=== PATIENT | male | born 1945 | race Caucasian/White ===

== ENCOUNTER 2017-03-01 11:54 | Inpatient (IN) ==
--- NOTE | 2017-03-01 21:17 | Internal Med History&Physical ---
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 Patient reports having moderate abdominal pain that radiated into his right shoulder for 2 weeks prior to presentation to the [facility]. He is at the [facility] for 1 week underwent workup for cholelithiasis as well as carotid stenosis. Patient has continued to have right upper quadrant abdominal pain and has positive Brantley sign on palpation. We will control any additional nausea or pain experienced We will start on gentle fluids We will consult general surgery We will obtain PT/INR/PTT Qualifiers: Cholelithiasis location: gallbladder Cholecystitis presence: without cholecystitis Biliary obstruction: without biliary obstruction Qualified Code(s): K80.20 - Calculus of gallbladder without cholecystitis without obstruction (2) Carotid stenosis Current visit: Yes Status: Acute Patient has history of carotid endarterectomy. Ultrasound and CT performed at the [facility] showed 20% stenosis of a tortuous left carotid and stenosis versus occlusion of the right carotid. No neurological deficits at this time. Slight bruit auscultated and left carotid. We will consult vascular surgery for recommendations Qualifiers: Laterality: unspecified laterality Qualified Code(s): I65.29 - Occlusion and stenosis of unspecified carotid artery (3) COPD (chronic obstructive pulmonary disease) Current visit: No Status: Chronic Patient was former smoker, diagnosis COPD. Currently stable. Continue home inhalers Qualifiers: COPD type: emphysema Emphysema type: unspecified Qualified Code(s): J43.9 - Emphysema, unspecified (4) HTN (hypertension) Current visit: No Status: Chronic Patient has history of hypertension on losartan and metoprolol at home. Current creatinine 1.33 last creatinine 1.29, previously normal creatinines but significant time ago. Unsure of current process represents SHAHZAD versus new baseline renal function We will hold losartan Continue metoprolol Qualifiers: Hypertension type: essential hypertension Qualified Code(s): I10 - Essential (primary) hypertension (5) Stable angina Current visit: No Status: Acute Patient does complain of having throbbing substernally. He has history of stable angina with use of nitroglycerin in the past. The reported chest pain is concerning given his possible need of cholecystectomy. Check troponin EKG negative Last echo performed in 04/02 showed EF of 60-65% We will place patient on telemetry (6) DVT prophylaxis Current visit: No Status: Acute We will hold chemical prophylaxis due to possible surgery. Start intermittent pneumatic compression devices (7) DM2 (diabetes mellitus, type 2) Current visit: No Status: Chronic We will hold oral hypoglycemics, start insulin sliding scale coverage Qualifiers: Diabetes mellitus complication status: with unspecified complications Diabetes mellitus custodial insulin use: without extermination supervisor use Qualified Code( s): E11.8 - Type 2 diabetes mellitus with unspecified complications (8) Paroxysmal a-fib Current visit: No Status: Chronic History of paroxysmal atrial fibrillation per patient chart. All previous document occasional hospital showed regular heart rate, current EKG does not show atrial fibrillation. Will hold prophylactic anticoagulation due to possible surgery. If there continues to be concern for atrial fibrillation consider long-term anticoagulation. Internal Medicine - H&P: HPI Chief complaint: RUQ abdominal pain Admitted From: Intrahospital Transfer Plans for Post Hospital Care: Home History of present illness: Mr. Haynes is a 71 year old male with past medical history of atrial fibrillation, CHF (last echo 04/02 showed EF 60-65% with mild left ventricular hypertrophy and mild left ventricle diastolic dysfunction), COPD, coronary artery disease, diabetes mellitus type 2, pacemaker, and hypertension who was transferred to [place] from the [facility] due to concern for cholelithiasis. Patient transferred to [place] after spending roughly 1 week at the [facility]. A CT abdomen/pelvis performed at the [facility] showed cholelithiasis, but also showed hypoattenuated region in one of his kidneys as well as 50% stenosis in his SMA. He also has a history of carotid endarterectomy and after a carotid ultrasound and CTA of his neck he was found to have 20% stenosis of his left carotid in unspecified stenosis of the right though there was mention of decreased blood flow.since arriving at [facility] patient has been stable, but continues to complain of right upper quadrant abdominal tenderness. He states that he has been having the tenderness in his abdomen for 2 weeks. He feels that movement will make it worse with only mild association with food. The pain is moderate and radiates to his right shoulder. He does state he has had decreased appetite since having this abdominal pain. He states that he has been having constipation and his 1 reported bowel movement in 2 weeks and that one bowel movement was watery diarrhea. He denies having any hematochezia or melena, but reports some nausea with no emesis. He denies fever/chills. When asked he states he has been having some substernal throbbing, but does have history of stable angina. Past Med Surg Social Fam HX - Past Medical History Medical history: atrial fibrillation, CHF, COPD, coronary artery disease, diabetes, GERD, hyperlipidemia, hypertension Psychiatric history: depression, PTSD - Past Surgical History Surgical History: appendectomy, carotid endarterectomy, pacemaker/AICD - Social History Smoking Status: Former smoker Smokeless Tobacco Status: No Alcohol use: occasionally Drug use: none - Family History Father Adopted: [place]: Delfino Haynes Living Status: Age at : 72 Cause of : cancer Hx Family Cardiac Disorders: Yes Hx Family Respiratory Disorders: Yes Hx Family Cancer: Yes Hx Family GI Disorders: No Hx Family Endocrine Disorder: No Hx Family Neuromuscular Disorders: No Hx Family Neurologic Disorders: No Hx Family HEENT Disorders: No Hx Family Autoimmune Disorders: No Internal Medicine - H&P: Meds Aspirin Enteric Coated [Aspirin EC] 81 mg PO DAILY 04/13/15 [History] Gabapentin [Neurontin] 600 mg PO TID 04/13/15 [History] Metformin HCl [Glucophage] 1,000 mg PO BID 04/13/15 [History] Oxygen 2 l NS AD 01/26/16 [History] Spironolactone [Aldactone] 25 mg PO DAILY 01/26/16 [History] Metoprolol Succinate 150 mg PO DAILY 12/12/16 [History] Acetaminophen [Tylenol] 650 mg PO TID PRN 03/01/17 [History] Albuterol Sulfate [Albuterol Inhaler] 2 puff IH Q6H PRN 03/01/17 [History] Atorvastatin [Lipitor] 10 mg PO HS 03/01/17 [History] Baclofen [Lioresal] 10 mg PO TID 03/01/17 [History] Dicyclomine [Bentyl] 10 mg PO QID 03/01/17 [History] Diphenoxylate/Atropine [Lomotil 2.5 mg/0.025 mg] 1 each PO TID PRN 03/01/17 [ History] Finasteride [Proscar] 5 mg PO DAILY 03/01/17 [History] Furosemide [Lasix] 40 mg PO DAILY 03/01/17 [History] Losartan Potassium [Cozaar] 100 mg PO DAILY 03/01/17 [History] Melatonin [Melatin] 3 mg PO HS 03/01/17 [History] Nitroglycerin [Nitrostat] 0.4 mg SL Q5M PRN 03/01/17 [History] Omeprazole [PriLOSEC] 20 mg PO DAILY 03/01/17 [History] Sennosides/Docusate Sodium [Senna Plus] 1 each PO BID 03/01/17 [History] Simethicone [Gas-X] 160 mg PO QID PRN 03/01/17 [History] Tamsulosin [Flomax] 0.4 mg PO DAILY 03/01/17 [History] Tiotropium [Spiriva] 18 mcg IH 0700 03/01/17 [History] traZODone [TraZODone] 25 mg PO HS 03/01/17 [History] 3 Allergy/AdvReac Type Severity Reaction Status Date / Time lisinopril Allergy Hives Verified 12/12/16 07:23 tetanus immune globulin Allergy Rash Verified 12/12/16 07:23 Review of systems: Gen: Denies fever, denies chills, denies weakness, denies fatigue, reports anorexia CV:reports chest pain as per history of present illness, denies exertional chest pain or dyspnea, denies palpitations Resp: Denies shortness of breath, denies coughing, denies wheeze GI:reports nausea, denies vomiting, reports abdominal pain as per HPI, reports constipation and diarrhea as per history of present illness, denies hematochezia , denies melena Neuro: Denies headache, denies confusion, denies focal weakness, denies numbness , denies tingling, denies vision changes Skin: Denies bruising, denies rash : Denies flank pain, denies dysuria, denies hematuria - Constitutional Vitals: Temp Pulse Resp BP Pulse Ox 99.1 F 72 16 106/58 95 03/01/17 19:33 03/01/17 19:33 03/01/17 19:33 03/01/17 19:33 03/01/17 19:33 Exam: General: Cooperative, pleasant, no acute distress, alert and oriented 3, answers questions appropriately HEENT: Normocephalic, atraumatic, neck supple, trachea midline, Conjunctiva pink , sclera anicteric, PERRL, oral mucosa moist, no orophargeal erythema or exudates Respiratory: No accessory muscle usage, clear to auscultation bilaterally, no wheezes/rhonchi/rales appreciated Cardiovascular: Regular rate and rhythm, S1 and S2 present, no murmurs/rubs/ gallops/clicks appreciated, mild left carotid bruit on auscultation GI/abdominal: NondisObese, tenderness palpation in epigastrium and right upper quadrant, positive Brantley sign, normal bowel sounds, no peritoneal signs Extremities: No calf tenderness, noncyanotic, no pedal edema appreciated, warm, lower extremity pulses palpable and symmetrical Neurological: Alert and oriented 3, no facial droop, no focal deficits Skin: Dry, intact, normal color Internal Med - H&P Results - Labs CBC & Chem 7: 03/01/17 22:04 03/01/17 22:04 <Rohit Marrero - Last Filed: 03/02/17 01:32> Date of Encounter: 03/02/17 Internal Medicine - H&P: HPI History of present illness: Mr. Haynes is a 71 year old male All Systems PM: A 10-system review of systems was performed and is negative for pertinent findings except as documented above in the HPI. - Constitutional Vitals: Temp Pulse Resp BP Pulse Ox 98.2 F 70 16 118/62 93 03/01/17 23:25 03/01/17 23:25 03/01/17 23:25 03/01/17 23:25 03/01/17 23:25 Internal Med - H&P Results - Labs CBC & Chem 7: 03/01/17 22:04 03/01/17 22:04 Labs: Short CBC 03/01/17 Range/Units 22:04 WBC 8.9 (4.3-11.1) K/mcL Hgb 12.0 L (12.9-16.9) g/dL Hct 37.4 L (37.5-50.1) % Plt Count 210 (140-400) K/mcL Neutrophils # 5.3 (1.6-8.9) K/mcL [facility] 03/01/17 22:04 Sodium 138 Potassium 4.7 H Chloride 104 Carbon Dioxide 23 BUN 17 Creatinine 1.33 H Glucose 131 H Calcium 9.2 - Attending Attestation I examined this patient and my medical decision-making was reviewed with the Resident Physician. I agree with the documented findings, disposition and treatment plan as described except to the extent set forth below. Patient is a 71-year-old male with past medical history of atrial fibrillation, CHF, COPD, CAD, diabetes, hyperlipidemia, hypertension, depression and GERD. He presents as a transfer from the [facility]. He comes in with right upper quadrant abdominal pain. He is being admitted for cholelithiasis. He will need general surgery evaluation for possible lap cholecystectomy. Labs are fairly within normal limits. Patient has mild right upper quadrant pain. Denies vomiting. No other acute events or complaints.
[2017-03-01] MEDS ORDERED: Ondansetron 4 MG/2 ML VIAL IVP PRN (21:18)
[2017-03-01] MEDS ORDERED: Naloxone 0.4 MG/ML INJ IVP PRN (21:18)
[2017-03-01] MEDS ORDERED: Simethicone 80 MG TAB.CHEW PO PRN (21:25)
[2017-03-01] MEDS ORDERED: Nitroglycerin 0.4 MG TAB.SUBL SL PRN (21:25)
[2017-03-01] MEDS ORDERED: Dextrose Gel 15 GM PO PRN ×2 (21:40)
[2017-03-01] MEDS ORDERED: D5% in Water 1,000 ML IVC PRN (21:40)
[2017-03-01] MEDS ORDERED: *HR* Dextrose 50 % in Water (Syg) 50 ML SYRINGE IVP PRN (21:40)
[2017-03-01 22:18] LABS: Basophils # 0.1 K/mcL (0.0-0.2); Basophils % 0.7 %; Eosinophils # 0.3 K/mcL (0.0-0.6); Hematocrit 37.4 % (37.5-50.1); Immature Granulocytes % 0.6 % (0-4); Lymphocytes # 2.3 K/mcL (0.6-4.6); Lymphocytes % 26.2 %; Mean Corpuscular HGB Conc 32.1 g/dL (31.6-35.5); Mean Corpuscular Volume 84.2 fL (83.0-100.0); Mean Platelet Volume 10.4 fL (9.4-12.4); Monocytes # 0.9 K/mcL (0.0-1.3); Monocytes % 10.4 %; Neutrophils # 5.3 K/mcL (1.6-8.9); Platelet Count 210 K/mcL (140-400); Red Blood Count 4.44 M/mcL (4.19-5.50); Red Cell Distribution Width 14.1 % (11.5-14.5); Segmented Neutrophils % 59.1 %
[2017-03-01 22:27] LABS: BUN/Creatinine Ratio 13 (6-26); Blood Urea Nitrogen 17 mg/dL (8-26); Calcium 9.2 mg/dL (8.6-10.8); Carbon Dioxide 23 mEq/L (19-29); Chloride 104 mEq/L (98-109); Glucose 131 mg/dL (70-99); Magnesium 1.9 mg/dL (1.6-2.6); Osmolality,Calculated 289 (280-300); Phosphorous 4.3 mg/dL (2.3-4.7); Potassium 4.7 mEq/L (3.5-4.5); Sodium 138 mEq/L (136-145); eGFR For African Americans > 60 (> 60); eGFR For Non-African Americans 53 (> 60)
[2017-03-01] MEDS: Melatonin 3 MG TABLET PO SCH (23:37)
[2017-03-01] MEDS: traZODone 50 MG TABLET PO SCH (23:38)
[2017-03-02] MEDS: Acetaminophen 325 MG TABLET PO PRN (03:59)
[2017-03-02 06:48] LABS: INR 1.1; Prothrombin Time 12.1 Seconds (9.4-12.1)
[2017-03-02 06:51] LABS: Activated Partial Thrombo Time 28.1 Seconds (26.0-36.0)
[2017-03-02 06:55] LABS: Basophils # 0.1 K/mcL (0.0-0.2); Basophils % 0.9 %; Eosinophils # 0.3 K/mcL (0.0-0.6); Eosinophils % 4.1 %; Hematocrit 36.9 % (37.5-50.1); Hemoglobin 11.8 g/dL (12.9-16.9); Immature Granulocytes % 0.6 % (0-4); Lymphocytes # 1.8 K/mcL (0.6-4.6); Mean Corpuscular Hemoglobin 26.9 pg (28.0-33.3); Mean Corpuscular Volume 84.1 fL (83.0-100.0); Mean Platelet Volume 10.5 fL (9.4-12.4); Monocytes # 0.7 K/mcL (0.0-1.3); Monocytes % 10.4 %; Neutrophils # 3.7 K/mcL (1.6-8.9); Platelet Count 205 K/mcL (140-400); Red Blood Count 4.39 M/mcL (4.19-5.50); Red Cell Distribution Width 14.1 % (11.5-14.5)
[2017-03-02 06:57] LABS: BUN/Creatinine Ratio 15 (6-26); Blood Urea Nitrogen 19 mg/dL (8-26); Calcium 9.1 mg/dL (8.6-10.8); Carbon Dioxide 24 mEq/L (19-29); Chloride 103 mEq/L (98-109); Glucose 139 mg/dL (70-99); Osmolality,Calculated 287 (280-300); Potassium 4.5 mEq/L (3.5-4.5); Sodium 136 mEq/L (136-145); eGFR For African Americans > 60 (> 60); eGFR For Non-African Americans 56 (> 60)
[2017-03-02] MEDS: Metoprolol XL (24 HR) Succ 50 MG TAB.ER.24H PO SCH (09:08)
[2017-03-02] MEDS: Sennosides/Docusate Sodium TABLET PO SCH ×2 (09:09→21:25)
[2017-03-02] MEDS: Gabapentin 300 MG CAPSULE PO SCH ×3 (09:09→21:25)
[2017-03-02] MEDS: Finasteride 5 MG TABLET PO SCH (09:09)
[2017-03-02] MEDS: Aspirin Enteric Coated 81 MG Tablet PO SCH (09:11)
[2017-03-02] MEDS: Pantoprazole 40 MG VIAL IVP SCH (09:11)
[2017-03-02] MEDS: Furosemide 40 MG TABLET PO SCH (09:11)
[2017-03-02] MEDS: Baclofen 10 MG TABLET PO SCH ×3 (09:11→21:24)
[2017-03-02] MEDS: Insulin LISPRO 300 UNITS/3 ML VIAL SQ SCH ×4 (09:12→21:25)
[2017-03-02] MEDS: Tiotropium 18 MCG inhalation IH SCH (10:32)
--- NOTE | 2017-03-02 10:47 | General Surgery Consult Note ---
<Sheeba Rivera Lindsay - Last Filed: 03/02/17 10:51> Date of Encounter: 03/02/17 Time of Encounter: 10:30 Assessment and Plan (1) Biliary dyskinesia Current Visit: Yes Status: Acute NPO Supportive care Risks, benefits, alternatives and expected outcomes reviewed with the patient and he is in agreement to proceed to the operating room for laparoscopic cholecystectomy when he is medically optimized. (2) Cholelithiasis Current Visit: No Status: Chronic NPO Supportive care Risks, benefits, alternatives and expected outcomes reviewed with the patient and he is in agreement to proceed to the operating room for laparoscopic cholecystectomy when he is medically optimized. Qualifiers: Cholelithiasis location: gallbladder Cholecystitis presence: without cholecystitis Biliary obstruction: without biliary obstruction Qualified Code(s): K80.20 - Calculus of gallbladder without cholecystitis without obstruction (3) Renal mass, right Current Visit: Yes Status: Acute Patient will require further work-up to r/o renal cell carcinoma (4) Carotid stenosis Current Visit: Yes Status: Chronic Awaiting vascular consult and recommendations Qualifiers: Laterality: unspecified laterality Qualified Code(s): I65.29 - Occlusion and stenosis of unspecified carotid artery (5) CAD (coronary artery disease) Current Visit: No Status: Chronic Management per medicine service Qualifiers: Coronary Disease-Associated Artery/Lesion type: [place] artery [place] vs. transplanted heart: [place] heart Associated angina: without angina Qualified Code(s): I25.10 - Atherosclerotic heart disease of [place] coronary artery without angina pectoris (6) COPD (chronic obstructive pulmonary disease) Current Visit: No Status: Chronic No acute exacerbation noted at this time Management per medicine service Qualifiers: COPD type: emphysema Emphysema type: unspecified Qualified Code(s): J43.9 - Emphysema, unspecified (7) Chronic diastolic CHF (congestive heart failure) Current Visit: No Status: Chronic No acute exacerbation Management per medicine service (8) DM2 (diabetes mellitus, type 2) Current Visit: No Status: Chronic Management per medicine service Qualifiers: Diabetes mellitus complication status: with unspecified complications Diabetes mellitus fci insulin use: without culinary worker use Qualified Code( s): E11.8 - Type 2 diabetes mellitus with unspecified complications (9) Depression Current Visit: No Status: Chronic Qualifiers: Depression Type: unspecified Qualified Code(s): F32.9 - Major depressive disorder, single episode, unspecified (10) GERD (gastroesophageal reflux disease) Current Visit: No Status: Chronic PPI therapy daily Qualifiers: Esophagitis presence: without esophagitis Qualified Code(s): K21.9 - Gastro -esophageal reflux disease without esophagitis (11) HTN (hypertension) Current Visit: No Status: Chronic Currently normotensive Management per medicine service Qualifiers: Hypertension type: essential hypertension Qualified Code(s): I10 - Essential (primary) hypertension (12) Morbid obesity Current Visit: No Status: Chronic (13) KINSEY (obstructive sleep apnea) Current Visit: No Status: Chronic Management per medicine service (14) Paroxysmal a-fib Current Visit: No Status: Chronic Management per medicine service INR- 1.1 (15) DVT prophylaxis Current Visit: No Status: Acute EPCDs to bilateral lower extremities for DVT prophylaxis History of Present Illness Consult date: 03/02/17 Reason for consult: gallstones Requesting physician: John De Leon History of present illness: Mr. Haynes is a 71 year old male with multiple comorbidities who was transferred from the [facility] with concerns for symptomatic cholelithiasis. He reports upper generalized abdominal discomfort which is mostly located in the upper abdomen. He states that this pain does radiate into his chest and into his back. He states that he has had the pain on and off for the last 2 weeks. He denies any aggravating or alleviating factors. He denies any bloating. Denies any loss of appetite. He denies any nausea or vomiting. He denies any fevers or chills. He has had imaging complete at the [facility] which shows evidence of cholelithiasis. HIDA scan shows and EF of 10.5%. We have been asked to see and evaluate the patient for further recommendations. Past Med Surg Social Fam HX - Past Medical History Source: patient, old records reviewed Medical history: atrial fibrillation, CHF, COPD, coronary artery disease, diabetes, GERD, hyperlipidemia, hypertension, other (Obesity, BPH, carotid stenosis, right renal mass, sleep apnea. alcohol abuse (last drink 6 months ago) ) Psychiatric history: depression, PTSD, other (Personality disorder) - Past Surgical History Surgical History: appendectomy, carotid endarterectomy, pacemaker/AICD, other ( green light PVP with Dr. Marques 3 weeks ago) - Social History Smoking Status: Former smoker (Quit 24 years ago (was a 3PPD smoker)) Smokeless Tobacco Status: No Alcohol use: occasionally (last drink was 6 weeks ago) Drug use: none Occupational status: disabled - Family History Father Adopted: [place]: Delfino Haynes Living Status: Age at : 72 Cause of : cancer Hx Family Cardiac Disorders: Yes Hx Family Respiratory Disorders: Yes Hx Family Cancer: Yes Hx Family GI Disorders: No Hx Family Endocrine Disorder: No Hx Family Neuromuscular Disorders: No Hx Family Neurologic Disorders: No Hx Family HEENT Disorders: No Hx Family Autoimmune Disorders: No Medications and Allergies Aspirin Enteric Coated [Aspirin EC] 81 mg PO DAILY 04/13/15 [History] Gabapentin [Neurontin] 600 mg PO TID 04/13/15 [History] Metformin HCl [Glucophage] 1,000 mg PO BID 04/13/15 [History] Oxygen 2 l NS AD 01/26/16 [History] Spironolactone [Aldactone] 25 mg PO DAILY 01/26/16 [History] Metoprolol Succinate 150 mg PO DAILY 12/12/16 [History] Acetaminophen [Tylenol] 650 mg PO TID PRN 03/01/17 [History] Albuterol Sulfate [Albuterol Inhaler] 2 puff IH Q6H PRN 03/01/17 [History] Atorvastatin [Lipitor] 10 mg PO HS 03/01/17 [History] Baclofen [Lioresal] 10 mg PO TID 03/01/17 [History] Dicyclomine [Bentyl] 10 mg PO QID 03/01/17 [History] Diphenoxylate/Atropine [Lomotil 2.5 mg/0.025 mg] 1 each PO TID PRN 03/01/17 [ History] Finasteride [Proscar] 5 mg PO DAILY 03/01/17 [History] Furosemide [Lasix] 40 mg PO DAILY 03/01/17 [History] Losartan Potassium [Cozaar] 100 mg PO DAILY 03/01/17 [History] Melatonin [Melatin] 3 mg PO HS 03/01/17 [History] Nitroglycerin [Nitrostat] 0.4 mg SL Q5M PRN 03/01/17 [History] Omeprazole [PriLOSEC] 20 mg PO DAILY 03/01/17 [History] Sennosides/Docusate Sodium [Senna Plus] 1 each PO BID 03/01/17 [History] Simethicone [Gas-X] 160 mg PO QID PRN 03/01/17 [History] Tamsulosin [Flomax] 0.4 mg PO DAILY 03/01/17 [History] Tiotropium [Spiriva] 18 mcg IH 0700 03/01/17 [History] traZODone [TraZODone] 25 mg PO HS 03/01/17 [History] 3 Allergy/AdvReac Type Severity Reaction Status Date / Time lisinopril Allergy Hives Verified 12/12/16 07:23 tetanus immune globulin Allergy Rash Verified 12/12/16 07:23 Review of Systems All systems PM: reviewed and no additional remarkable complaints except as stated (in the HPI) All systems PM: A 10-system review of systems was performed and is negative for pertinent findings except as documented above in the HPI. General Surgery Exam Initial Vital Signs Temp Pulse Resp BP Pulse Ox 98.4 F 70 16 107/60 95 03/01/17 17:55 03/01/17 17:55 03/01/17 17:55 03/01/17 17:55 03/01/17 17:55 - General physical appearance well developed, well nourished, no distress, no pain, chronically ill, obese - Eyes normal ocular movement - ENT normal mucosa, atraumatic, normocephalic - Neck trachea midline - Respiratory normal respiratory effort, clear to auscultation - Cardiovascular Cardiovascular exam: Present: RRR - Abdomen Abdomen general surgery: Present: bowel sounds present, soft, non tender - Integumentary Integumentary general surgery: Present: warm and dry - Neurologic Present: CN 2-12 grossly intact - Psychiatric Psychiatric general surgery: Present: appropriate, oriented to person, oriented to place, oriented to time, speech is normal, memory intact Exam Initial Vital Signs Temp Pulse Resp BP Pulse Ox 98.4 F 70 16 107/60 95 03/01/17 17:55 03/01/17 17:55 03/01/17 17:55 03/01/17 17:55 03/01/17 17:55 Results - Labs 03/02/17 06:26 03/02/17 06:26 Abnormal lab results Hgb 11.8 g/dL (12.9-16.9) L 03/02/17 06:26 Hct 36.9 % (37.5-50.1) L 03/02/17 06:26 MCH 26.9 pg (28.0-33.3) L 03/02/17 06:26 Creatinine 1.27 mg/dL (0.72-1.25) H 03/02/17 06:26 Est GFR (Non-Af Amer) 56 (> 60) L 03/02/17 06:26 Glucose 139 mg/dL (70-99) H 03/02/17 06:26 POC Glucose 113 (58-89) H 03/01/17 19:39 Diabetes panel 03/01/17 03/02/17 Range/Units 22:04 06:26 Sodium 138 136 (136-145) mEq/L Potassium 4.7 H 4.5 (3.5-4.5) mEq/L Chloride 104 103 (98-109) mEq/L Carbon Dioxide 23 24 (19-29) mEq/L BUN 17 19 (8-26) mg/dL Creatinine 1.33 H 1.27 H (0.72-1.25) mg/dL Glucose 131 H 139 H (70-99) mg/dL Calcium 9.2 9.1 (8.6-10.8) mg/dL Calcium panel 03/01/17 03/01/17 03/02/17 Range/Units 22:04 22:04 06:26 Calcium 9.2 9.1 (8.6-10.8) mg/dL Phosphorus 4.3 (2.3-4.7) mg/dL Pituitary panel 03/01/17 03/02/17 Range/Units 22:04 06:26 Sodium 138 136 (136-145) mEq/L Potassium 4.7 H 4.5 (3.5-4.5) mEq/L Chloride 104 103 (98-109) mEq/L Carbon Dioxide 23 24 (19-29) mEq/L BUN 17 19 (8-26) mg/dL Creatinine 1.33 H 1.27 H (0.72-1.25) mg/dL Glucose 131 H 139 H (70-99) mg/dL Calcium 9.2 9.1 (8.6-10.8) mg/dL Adrenal panel 03/01/17 03/02/17 Range/Units 22:04 06:26 Sodium 138 136 (136-145) mEq/L Potassium 4.7 H 4.5 (3.5-4.5) mEq/L Chloride 104 103 (98-109) mEq/L Carbon Dioxide 23 24 (19-29) mEq/L BUN 17 19 (8-26) mg/dL Creatinine 1.33 H 1.27 H (0.72-1.25) mg/dL Glucose 131 H 139 H (70-99) mg/dL Calcium 9.2 9.1 (8.6-10.8) mg/dL All other labs normal. Consult Discharge Plan - Plan [facility]errals: [facility] [Primary Care Provider] - - Attending Attestation For this encounter, I have reviewed the BISCUIT FACTORY WORKER or PA documentation, treatment plan, and medical decision making; and I have had face to face time with this patient. <Enedina Fry - Last Filed: 03/05/17 16:01> Date of Encounter: 03/02/17 Assessment and Plan (1) Abdominal pain Current Visit: Yes Status: Chronic patients abdominal pain is likely caused by biliary dyskinesia will plan laparoscopic cholecystectomy, possible cholangiograms, possible open once patient gets cardiac clearance, risks and benefits discussed iwth patient and he wishes to proceed npo at midnight prn pain control gi/dvt prophylaxis ambulate Qualifiers: Abdominal location: right upper quadrant Qualified Code(s): R10.11 - Right upper quadrant pain (2) Biliary dyskinesia Current Visit: Yes Status: Acute History of Present Illness History of present illness: Patient is 71 [facility]. He has complaints of right upper quadrant and right abdominal pain which sometimes radiates into his chest. He has nausea without emesis. He has no diarrhea. No fevers chills or night sweats. He has had this on and off for years. He had CT scan which showed cholelithiasis. HIDA showed EF 10%. He is awaiting cardiology clearance. He had a drug induced stress test in December of this year at [facility]. Review of Systems All systems PM: reviewed and no additional remarkable complaints except as stated All systems PM: A 10-system review of systems was performed and is negative for pertinent findings except as documented above in the HPI. General Surgery Exam Initial Vital Signs Temp Pulse Resp BP Pulse Ox 98.4 F 70 16 107/60 95 03/01/17 17:55 03/01/17 17:55 03/01/17 17:55 03/01/17 17:55 03/01/17 17:55 - Eyes PERRL, normal ocular movement - ENT normal mucosa, normocephalic - Neck trachea midline - Respiratory normal expansion, clear to auscultation - Cardiovascular Cardiovascular exam: Present: RRR - Abdomen Abdomen general surgery: Present: bowel sounds present, soft, non tender. Absent: guarding, rebound - Integumentary Integumentary general surgery: Present: warm and dry, no abnormal pigmentation - Neurologic Present: CN 2-12 grossly intact - Musculoskeletal Present: normal gait - Psychiatric Psychiatric general surgery: Present: A&Ox3, speech is normal Exam Initial Vital Signs Temp Pulse Resp BP Pulse Ox 98.4 F 70 16 107/60 95 03/01/17 17:55 03/01/17 17:55 03/01/17 17:55 03/01/17 17:55 03/01/17 17:55 Results - Labs 03/05/17 04:37 03/05/17 04:37 Abnormal lab results WBC 19.1 K/mcL (4.3-11.1) H D 03/05/17 04:37 MCH 26.9 pg (28.0-33.3) L 03/05/17 04:37 RDW 14.6 % (11.5-14.5) H 03/05/17 04:37 Neutrophils # 15.9 K/mcL (1.6-8.9) H 03/05/17 04:37 Monocytes # 2.1 K/mcL (0.0-1.3) H 03/05/17 04:37 Est GFR (Non-Af Amer) 58 (> 60) L 03/05/17 04:37 Glucose 168 mg/dL (70-99) H 03/05/17 04:37 POC Glucose 154 (58-89) H 03/04/17 07:30 Direct Bilirubin 0.7 mg/dL (0.0-0.5) H 03/05/17 04:37 AST 85 Units/L (5-34) H 03/05/17 04:37 ALT 115 Units/L (0-55) H 03/05/17 04:37 Albumin 3.3 g/dL (3.5-5.0) L 03/05/17 04:37 Globulin 4.5 g/dL (2.4-3.5) H 03/05/17 04:37 Albumin/Globulin Ratio 0.7 (1.1-2.2) L 03/05/17 04:37 Diabetes panel 03/05/17 03/05/17 Range/Units 04:37 04:37 Sodium 139 (136-145) mEq/L Potassium 4.4 (3.5-4.5) mEq/L Chloride 105 (98-109) mEq/L Carbon Dioxide 24 (19-29) mEq/L BUN 16 (8-26) mg/dL Creatinine 1.23 (0.72-1.25) mg/dL Glucose 168 H (70-99) mg/dL Calcium 9.1 (8.6-10.8) mg/dL AST 85 H 82 H (5-34) Units/L ALT 115 H 114 H (0-55) Units/L Alkaline Phosphatase 67 67 (38-126) Units/L Albumin 3.3 L 3.3 L (3.5-5.0) g/dL Calcium panel 03/05/17 03/05/17 Range/Units 04:37 04:37 Calcium 9.1 (8.6-10.8) mg/dL Albumin 3.3 L 3.3 L (3.5-5.0) g/dL Pituitary panel 03/05/17 Range/Units 04:37 Sodium 139 (136-145) mEq/L Potassium 4.4 (3.5-4.5) mEq/L Chloride 105 (98-109) mEq/L Carbon Dioxide 24 (19-29) mEq/L BUN 16 (8-26) mg/dL Creatinine 1.23 (0.72-1.25) mg/dL Glucose 168 H (70-99) mg/dL Calcium 9.1 (8.6-10.8) mg/dL Adrenal panel 03/05/17 03/05/17 Range/Units 04:37 04:37 Sodium 139 (136-145) mEq/L Potassium 4.4 (3.5-4.5) mEq/L Chloride 105 (98-109) mEq/L Carbon Dioxide 24 (19-29) mEq/L BUN 16 (8-26) mg/dL Creatinine 1.23 (0.72-1.25) mg/dL Glucose 168 H (70-99) mg/dL Calcium 9.1 (8.6-10.8) mg/dL Total Bilirubin 1.1 D 1.1 (0.2-1.2) mg/dL AST 85 H 82 H (5-34) Units/L ALT 115 H 114 H (0-55) Units/L Alkaline Phosphatase 67 67 (38-126) Units/L Albumin 3.3 L 3.3 L (3.5-5.0) g/dL All other labs normal. - Imaging CT scan - abdomen: report reviewed CT scan - pelvis: report reviewed Additional studies: [facility] EF 10% patient doesnt remember the study - Attending Attestation I have personally performed a face to face evaluation on this patient. I have reviewed and agree with the care plan. History and Exam by me shows:
--- NOTE | 2017-03-02 12:56 | Internal Med Progress Note ---
Date of Encounter: 03/02/17 Time of Encounter: 12:55 - Assessment and plan (1) Abdominal pain Current Visit: Yes Status: Acute Qualifiers: Abdominal location: right upper quadrant Qualified Code(s): R10.11 - Right upper quadrant pain (2) Cholelithiasis Current Visit: No Status: Chronic Qualifiers: Cholelithiasis location: gallbladder Cholecystitis presence: without cholecystitis Biliary obstruction: without biliary obstruction Qualified Code(s): K80.20 - Calculus of gallbladder without cholecystitis without obstruction (3) Chest pain Current Visit: No Status: Acute Qualifiers: Chest pain type: unspecified Qualified Code(s): R07.9 - Chest pain, unspecified (4) CAD (coronary artery disease) Current Visit: No Status: Chronic Qualifiers: Coronary Disease-Associated Artery/Lesion type: [place] artery [place] vs. transplanted heart: [place] heart Associated angina: without angina Qualified Code(s): I25.10 - Atherosclerotic heart disease of [place] coronary artery without angina pectoris (5) Diabetes Current Visit: No Status: Acute Qualifiers: Diabetes mellitus type: type 2 Diabetes mellitus complication status: without complication Diabetes mellitus ferry terminal agent insulin use: with ferry terminal agent use Qualified Code(s): E11.9 - Type 2 diabetes mellitus without complications ; Z79.4 - [facility] (current) use of insulin (6) A-fib Current Visit: No Status: Chronic Qualifiers: Atrial fibrillation type: chronic Qualified Code(s): I48.2 - Chronic atrial fibrillation (7) COPD (chronic obstructive pulmonary disease) Current Visit: No Status: Chronic Qualifiers: COPD type: emphysema Emphysema type: unspecified Qualified Code(s): J43.9 - Emphysema, unspecified (8) CKD (chronic kidney disease) stage 3, GFR 30-59 ml/min Current Visit: Yes Status: Acute - Subjective Interval history: Mr. Haynes is a 71 year old male with past medical history of atrial fibrillation, CHF (last echo 04/02 showed EF 60-65% with mild left ventricular hypertrophy and mild left ventricle diastolic dysfunction), COPD, CKD ,coronary artery disease, diabetes mellitus type 2, pacemaker, and hypertension who was transferred to [place] from the [facility] due to concern for cholelithiasis. Patient transferred to [place] after spending roughly 1 week at the [facility]. 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 He also has a history of carotid endarterectomy and after a carotid ultrasound and CTA of his neck he was found to have 20% stenosis of his left carotid in unspecified stenosis of the right though there was mention of decreased blood flow. Patient was seen this morning. He mentioned that he had to bilateral chest pain last night but now it has subsided. His abdominal pain is much better now. Examination is essentially remained unremarkable except for mild tenderness in right upper quadrant but Brantley's sign is negative. General surgery has evaluated the patient and plan to proceed with cholecystectomy provided patient is medically cleared. His EKG and troponins were negative on admission however since he has history of coronary artery disease will order nonexercise perfusion stress test and consult cardiology for cardiac clearance. He also has underlying COPD however breathing is status is stable at this time. It was noted that cardio vascular surgery has been consulted on admission due to carotid stenosis as well as SMA 50% stenosis with hypoattenuated region and kidney [facility] - Constitutional Vitals: Temp Pulse Resp BP Pulse Ox 99.1 F 79 14 118/68 93 03/02/17 11:19 03/02/17 11:19 03/02/17 11:19 03/02/17 11:19 03/02/17 11:19 General appearance: Present: A&O X 3, morbidly obese, pleasant, no acute distress, answers questions appropriately - Head Head exam: Present: atraumatic, normocephalic - Eye Eye exam: Present: PERRL, conjuntiva pink, sclera anicteric Pupils: Present: PERRL - Neck Neck exam general surgery: Present: supple, trachea midline. Absent: lymphadenopathy - Respiratory Respiratory exam: Present: CTAB. Absent: accessory muscle use, rales, rhonchi, wheezes - Cardiovascular Cardiovascular exam: Present: irregular rhythm, +S1, +S2. Absent: diastolic murmur, gallop, rubs, systolic murmur - GI/Abdominal GI/Abdominal exam: Present: normal bowel sounds, soft, no peritoneal signs. Absent: distended, tenderness - Extremities Exam Extremities exam: Present: pedal edema, warm, radial pulses palpable and symmetrical. Absent: calf tenderness, cyanotic - Neurological Exam Neurological exam: Present: CN II-XII intact, oriented X3, no focal deficits. Absent: pronater drift, facial droop, speech deficit - Skin Skin exam: Present: dry, intact Internal Medicine: Result - Labs CBC & Chem 7: 03/02/17 06:26 03/02/17 06:26 Labs: Short CBC 03/01/17 03/02/17 Range/Units 22:04 06:26 WBC 8.9 6.6 (4.3-11.1) K/mcL Hgb 12.0 L 11.8 L (12.9-16.9) g/dL Hct 37.4 L 36.9 L (37.5-50.1) % Plt Count 210 205 (140-400) K/mcL Neutrophils # 5.3 3.7 (1.6-8.9) K/mcL BMP 03/01/17 03/02/17 22:04 06:26 Sodium 138 136 Potassium 4.7 H 4.5 Chloride 104 103 Carbon Dioxide 23 24 BUN 17 19 Creatinine 1.33 H 1.27 H Glucose 131 H 139 H Calcium 9.2 9.1 Cardiac Enzymes 03/02/17 Range/Units 06:26 Troponin I 0.00 (0-0.03) ng/mL - ABG Interpretation ABG results: PT/INR, D-dimer PT 12.1 Seconds (9.4-12.1) 03/02/17 06:26 Consult Discharge Plan - Plan [facility]errals: [facility] [Primary Care Provider] -
--- NOTE | 2017-03-02 14:20 | Cardiology Consult Note ---
Date of Encounter: 03/02/17 Time of Encounter: 14:17 Assessment and Plan (1) Pre-operative cardiovascular examination Current Visit: Yes Status: Acute Mr. Haynes presents from the [place] with cholelithiasis. He is recommended to undergo Laparoscopic chlole. Unfortunately he is c/o chest pain and SOB increasing over the past month. Chest pain is atypical. EKG with no acute ST changes. Shows SR with RBBB. Troponin negative. Agree with stress test. Last TTE 04/07/16- EF 60-65%. No significant valvular disease. I will check his PPM prior to surgery. Denies recent device check. (2) Pacemaker Current Visit: Yes Status: Acute PPM placed three years ago at [place]. (3) CAD (coronary artery disease) Current Visit: No Status: Chronic H/o cardiac stent placement 3 years ago at [place] [facility] per patient. Continue asa, statin, and bb. Last stress test completed was 11/2015. Qualifiers: Coronary Disease-Associated Artery/Lesion type: [place] artery [place] vs. transplanted heart: [place] heart Associated angina: without angina Qualified Code(s): I25.10 - Atherosclerotic heart disease of [place] coronary artery without angina pectoris (4) A-fib Current Visit: No Status: Chronic H/o atrial fibrillation. Currently SR with RBBB. Per previous reports patient declined anticoagulation. He is a CHADS VASc=4 for HTN, CAD, age , and DM. I discussed anticoagulation with warfarin vs NOAC. He states he would consider. Will not start no d/t pending surgery. Consider starting after surgery once safe from bleeding standpoint. Qualifiers: Atrial fibrillation type: chronic Qualified Code(s): I48.2 - Chronic atrial fibrillation Discussion w patient/family: The assessment and plan as outlined above was discussed with the patient and/or family members who expressed understanding and agreement. All questions were answered. Thank you for involving us in the care of your patient. Please call with any questions. History of Present Illness Consult date: 03/02/17 Requesting physician: Vignesh Tirado Consult reason: pre-operative cardiovascular assessment Chief complaint: chest pain History of present illness: Mr. Haynes is a 71 year old male who presented from the [facility] with concern of cholelithiasis and carotid artery disease. He was being evaluated for abdominal pain. He was seen by surgery and is planning for a laparoscopic cholecystectomy. Cardiology consulted for pre-operative risk assessment. He has a past medical history of CAD prior PCI three years ago at [place] [facility], atrial fibrillation, PPM, COPD, CKD, and KINSEY untreated. He reports lower right sided chest pain radiating to his left chest. His pain is associated with palpitations and SOB. His symptoms often occur with exertion but also may occur at rest. States that he has not used NTG. Symptoms only last for one minute at a time. On my exam he c/o a right sided chest tightness. A stress test was ordered by the primary team to be completed tomorrow. Past Med Surg Social Fam HX - Past Medical History Medical history: atrial fibrillation, CHF, COPD, coronary artery disease, diabetes, GERD, hyperlipidemia, hypertension, other (Obesity, BPH, carotid stenosis, right renal mass, sleep apnea. alcohol abuse (last drink 6 months ago) ) Psychiatric history: depression, PTSD, other (Personality disorder) - Past Surgical History Surgical History: appendectomy, carotid endarterectomy, pacemaker/AICD, other ( green light PVP with Dr. Marques 3 weeks ago) - Social History Smoking Status: Former smoker (Quit 24 years ago (was a 3PPD smoker)) Smokeless Tobacco Status: No Alcohol use: occasionally (last drink was 6 weeks ago) Drug use: none - Family History Father Adopted: [place]: Delfino Haynes Living Status: Age at : 70 Cause of : cancer Hx Family Cardiac Disorders: Yes Hx Family Respiratory Disorders: Yes Hx Family Cancer: Yes Hx Family GI Disorders: No Hx Family Endocrine Disorder: No Hx Family Neuromuscular Disorders: No Hx Family Neurologic Disorders: No Hx Family HEENT Disorders: No Hx Family Autoimmune Disorders: No Medications and Allergies Aspirin Enteric Coated [Aspirin EC] 81 mg PO DAILY 04/13/15 [History] Gabapentin [Neurontin] 600 mg PO TID 04/13/15 [History] Metformin HCl [Glucophage] 1,000 mg PO BID 04/13/15 [History] Oxygen 2 l NS AD 01/26/16 [History] Spironolactone [Aldactone] 25 mg PO DAILY 01/26/16 [History] Metoprolol Succinate 150 mg PO DAILY 12/12/16 [History] Acetaminophen [Tylenol] 650 mg PO TID PRN 03/01/17 [History] Albuterol Sulfate [Albuterol Inhaler] 2 puff IH Q6H PRN 03/01/17 [History] Atorvastatin [Lipitor] 10 mg PO HS 03/01/17 [History] Baclofen [Lioresal] 10 mg PO TID 03/01/17 [History] Dicyclomine [Bentyl] 10 mg PO QID 03/01/17 [History] Diphenoxylate/Atropine [Lomotil 2.5 mg/0.025 mg] 1 each PO TID PRN 03/01/17 [ History] Finasteride [Proscar] 5 mg PO DAILY 03/01/17 [History] Furosemide [Lasix] 40 mg PO DAILY 03/01/17 [History] Losartan Potassium [Cozaar] 100 mg PO DAILY 03/01/17 [History] Melatonin [Melatin] 3 mg PO HS 03/01/17 [History] Nitroglycerin [Nitrostat] 0.4 mg SL Q5M PRN 03/01/17 [History] Omeprazole [PriLOSEC] 20 mg PO DAILY 03/01/17 [History] Sennosides/Docusate Sodium [Senna Plus] 1 each PO BID 03/01/17 [History] Simethicone [Gas-X] 160 mg PO QID PRN 03/01/17 [History] Tamsulosin [Flomax] 0.4 mg PO DAILY 03/01/17 [History] Tiotropium [Spiriva] 18 mcg IH 0700 03/01/17 [History] traZODone [TraZODone] 25 mg PO HS 03/01/17 [History] 3 Allergy/AdvReac Type Severity Reaction Status Date / Time lisinopril Allergy Hives Verified 12/12/16 07:23 tetanus immune globulin Allergy Rash Verified 12/12/16 07:23 All Systems Review: A 10-system review of systems was performed and is negative for pertinent findings except as documented above in the HPI. Physical Examination Vital Signs, Last 4 Hours Temp Pulse Resp BP Pulse Ox 03/02/17 11:19 99.1 F 79 14 118/68 93 General: Conversant, No Apparent Distress HEENT: Atraumatic, Normocephaly, Mucus Membranes Moist Neck: No JVD, Normal carotid pulses Cardiac: Reg Rate and Rhythm, No Murmur, Other (atrial paced. ) Lungs: Normal Breath Sounds, No Wheeze, Rales, Rhonchi Neuro: Alert and responsive, No focal deficits noted Abdomen: Soft, Non-Tender Skin: No rashes noted on visualized skin Musculoskeletal: No Chest Wall Tenderness Extremities: No Clubbing, No Cyanosis, No Edema, Normal Pulses Results 03/02/17 06:26 03/02/17 06:26 Lab Results 03/01/17 03/01/17 03/01/17 22:04 22:04 22:04 WBC 8.9 Hgb 12.0 L Hct 37.4 L Plt Count 210 INR APTT Sodium 138 Potassium 4.7 H Chloride 104 Carbon Dioxide 23 BUN 17 Creatinine 1.33 H Glucose 131 H Calcium 9.2 Magnesium 1.9 Troponin I 03/02/17 03/02/17 03/02/17 06:26 06:26 06:26 WBC 6.6 Hgb 11.8 L Hct 36.9 L Plt Count 205 INR 1.1 APTT 28.1 Sodium Potassium Chloride Carbon Dioxide BUN Creatinine Glucose Calcium Magnesium Troponin I 0.00 03/02/17 03/02/17 06:26 12:50 WBC Hgb Hct Plt Count INR APTT Sodium 136 Potassium 4.5 Chloride 103 Carbon Dioxide 24 BUN 19 Creatinine 1.27 H Glucose 139 H Calcium 9.1 Magnesium Troponin I 0.00 - Imaging and Cardiology Echo: report reviewed - EKG Interpretation EKG results cardiology: personally reviewed (SR with RBSUDARSHAN) Consult Discharge Plan - Plan [facility]errals: [facility] [Primary Care Provider] -
[2017-03-02] MEDS ORDERED: Melatonin 3 MG TABLET PO SCH (21:00)
[2017-03-02] MEDS ORDERED: traZODone 50 MG TABLET PO SCH (21:00)
[2017-03-02] MEDS: Melatonin 3 MG TABLET PO SCH (21:25)
[2017-03-02] MEDS: traZODone 50 MG TABLET PO SCH (21:25)
[2017-03-03 05:23] LABS: Basophils % 0.5 %; Eosinophils # 0.2 K/mcL (0.0-0.6); Eosinophils % 3.6 %; Hematocrit 37.5 % (37.5-50.1); Hemoglobin 11.9 g/dL (12.9-16.9); Immature Granulocytes % 0.6 % (0-4); Lymphocytes # 1.5 K/mcL (0.6-4.6); Lymphocytes % 24.2 %; Mean Corpuscular HGB Conc 31.7 g/dL (31.6-35.5); Mean Corpuscular Hemoglobin 26.6 pg (28.0-33.3); Mean Corpuscular Volume 83.7 fL (83.0-100.0); Mean Platelet Volume 10.6 fL (9.4-12.4); Monocytes # 0.7 K/mcL (0.0-1.3); Monocytes % 10.7 %; Neutrophils # 3.8 K/mcL (1.6-8.9); Platelet Count 216 K/mcL (140-400); Red Blood Count 4.48 M/mcL (4.19-5.50); Red Cell Distribution Width 14.1 % (11.5-14.5); Segmented Neutrophils % 60.4 %
[2017-03-03 06:16] LABS: Alanine Aminotransferase 22 Units/L (0-55); Alkaline Phosphatase 55 Units/L (38-126); BUN/Creatinine Ratio 17 (6-26); Bilirubin,Total 0.6 mg/dL (0.2-1.2); Blood Urea Nitrogen 22 mg/dL (8-26); Calcium 9.1 mg/dL (8.6-10.8); Carbon Dioxide 26 mEq/L (19-29); Chloride 103 mEq/L (98-109); Glucose 122 mg/dL (70-99); Osmolality,Calculated 293 (280-300); Potassium 3.9 mEq/L (3.5-4.5); Sodium 139 mEq/L (136-145); Total Protein 7.2 g/dL (6.0-8.3); eGFR For African Americans > 60 (> 60); eGFR For Non-African Americans 54 (> 60)
[2017-03-03 06:50] LABS: Aspartate Amino Transferase 16 Units/L (5-34)
[2017-03-03] MEDS ORDERED: Regadenoson 0.4 MG/5 ML SYRINGE IVP ONE (07:05)
[2017-03-03 07:33] LABS: Albumin 3.7 g/dL (3.5-5.0); Albumin/Globulin Ratio 1.1 (1.1-2.2); Globulin 3.5 g/dL (2.4-3.5)
[2017-03-03] MEDS: Aspirin Enteric Coated 81 MG Tablet PO SCH (07:39)
[2017-03-03] MEDS: Insulin LISPRO 300 UNITS/3 ML VIAL SQ SCH ×4 (07:39→21:07)
[2017-03-03] MEDS: Pantoprazole 40 MG VIAL IVP SCH (09:00)
[2017-03-03] MEDS: Gabapentin 300 MG CAPSULE PO SCH ×3 (09:00→21:04)
[2017-03-03] MEDS: Metoprolol XL (24 HR) Succ 50 MG TAB.ER.24H PO SCH (09:00)
[2017-03-03] MEDS: Furosemide 40 MG TABLET PO SCH (09:00)
[2017-03-03] MEDS: Sennosides/Docusate Sodium TABLET PO SCH ×2 (09:00→21:05)
[2017-03-03] MEDS: Baclofen 10 MG TABLET PO SCH ×3 (09:00→21:05)
[2017-03-03] MEDS: Finasteride 5 MG TABLET PO SCH (09:00)
[2017-03-03] MEDS: Tiotropium 18 MCG inhalation IH SCH (09:51)
--- NOTE | 2017-03-03 10:21 | Cardiology Progress Note ---
Date of Encounter: 03/03/17 Time of Encounter: 10:00 Assessment and Plan (1) Pre-operative cardiovascular examination Current Visit: Yes Status: Acute Mr. Haynes presents from the [place] with cholelithiasis. He is recommended to undergo Laparoscopic [place]. Unfortunately he is c/o chest pain and SOB increasing over the past month. Chest pain is atypical. EKG with no acute ST changes. Shows SR with RBBB. Troponin negative. Last TTE 04/07/16- EF 60-65%. No significant valvular disease. Plan for low risk laparoscopic surgery under general anesthesia. Recommend betablocker in the steven-operative period. Normal device check (dual chamber PPM) on 03/02/17. Non-exercise nuclear stress test results pending; further recommendations to follow. (2) CAD (coronary artery disease) Current Visit: Yes Status: Chronic H/o cardiac stent placement 3 years ago at [place] hospital per patient. Denies chest pain or discomfort upon exam. Continue asa, statin, and bb. Qualifiers: Coronary Disease-Associated Artery/Lesion type: [place] artery [place] vs. transplanted heart: [place] heart Associated angina: without angina Qualified Code(s): I25.10 - Atherosclerotic heart disease of [place] coronary artery without angina pectoris (3) A-fib Current Visit: Yes Status: Chronic H/o atrial fibrillation. Currently SR with RBBB. Per previous reports patient declined anticoagulation. 12 hour tele: avg HR=68 SR. Intermittently paced. No PAF noted. He is a CHADS VASc=4 for HTN, CAD, age , and DM. I discussed anticoagulation with warfarin vs NOAC. He states he would consider. Will not start no d/t pending surgery. Consider starting after surgery once safe from bleeding standpoint, can be started in the outpatient setting. Qualifiers: Atrial fibrillation type: chronic Qualified Code(s): I48.2 - Chronic atrial fibrillation (4) Pacemaker Current Visit: Yes Status: Acute PPM placed three years ago at [place]; device check completed yesterday demonstrated normal functioning PPM. No events noted. Reviewed device interrogation with Dr. Austin Hernandez, will place copy on chart. Discussion w patient/family: The assessment and plan as outlined above was discussed with the patient and/or family members who expressed understanding and agreement. All questions were answered. Thank you for involving us in the care of your patient. Please call with any questions. The patient will be discussed and reviewed with Dr. Austin Hernandez; changes to be made accordingly. Subjective Principal diagnosis: Cholelithiasis, pre-op Interval history: Seen and examined in stress lab earlier this AM. No complaints overnight. Denies chest pain/discomfort or shortness of breath. Objective General: Conversant, Other (obese) HEENT: Atraumatic, Normocephaly Neck: No JVD Cardiac: Reg Rate and Rhythm, Normal S1 and S2 Lungs: Normal Breath Sounds Neuro: Alert and responsive Abdomen: Soft Skin: No rashes noted on visualized skin Extremities: Other (mild BLE edema, non-pitting. ) Results 03/03/17 04:47 03/03/17 04:47 Lab Results 03/02/17 03/03/17 03/03/17 12:50 04:47 04:47 WBC 6.3 Hgb 11.9 L Hct 37.5 Plt Count 216 Sodium 139 Potassium 3.9 Chloride 103 Carbon Dioxide 26 BUN 22 Creatinine 1.31 H Glucose 122 H Calcium 9.1 Total Bilirubin 0.6 AST 16 ALT 22 Alkaline Phosphatase 55 Troponin I 0.00 Active Medications Acetaminophen (Tylenol) 650 mg PO Q6HR PRN PRN Reason: Mild Pain or fever Stop: 08/31/17 21:19 Last Admin: 03/02/17 03:59 Dose: 650 mg Albuterol Sulfate (Albuterol Inhaler) 2 puff IH [id number] [facility] Stop: 09/01/17 04:01 Last Admin: 03/03/17 09:51 Dose: Not Given Aspirin (Aspirin Ec) 81 mg PO DAILY [facility] Stop: 09/01/17 09:01 Last Admin: 03/03/17 07:39 Dose: Not Given Baclofen (Lioresal) 10 mg PO TID [facility] Stop: 09/01/17 09:01 Last Admin: 03/02/17 21:24 Dose: 10 mg Dextrose/Water (Dextrose 50% (Syg)) 25 ml IVP AD PRN PRN Reason: Hypoglycemia Stop: 08/31/17 21:41 Dicyclomine HCl (Bentyl) 10 mg PO QID [facility] Stop: 08/31/17 23:25 Last Admin: 03/03/17 07:41 Dose: Not Given Finasteride (Proscar) 5 mg PO DAILY [facility] PRN Reason: Protocol Stop: 09/01/17 09:01 Last Admin: 03/02/17 09:09 Dose: 5 mg Furosemide (Lasix) 40 mg PO DAILY [facility] Stop: 09/01/17 09:01 Last Admin: 03/02/17 09:11 Dose: 40 mg Gabapentin (Neurontin) 600 mg PO TID [facility] Stop: 09/01/17 09:01 Last Admin: 03/02/17 21:25 Dose: 600 mg Glucagon (Glucagen) 1 mg IM ONCE PRN PRN Reason: Hypoglycemia Stop: 08/31/17 21:41 Glucose (Gluctose) 15 gm PO ONCE PRN PRN Reason: Hypoglycemia Stop: 08/31/17 21:41 Glucose (Gluctose) 30 gm PO ONCE PRN PRN Reason: Hypoglycemia Stop: 08/31/17 21:41 Dextrose (Dextrose 5%) 1,000 mls @ 100 mls/hr IVC .Q10H PRN PRN Reason: HYPOGLYCEMIA Stop: 08/31/17 21:41 Insulin Human Lispro (Humalog) 0 units SQ [facility] PRN Reason: Protocol Stop: 09/01/17 21:01 Last Admin: 03/02/17 21:25 Dose: Not Given Insulin Human Lispro (Humalog) 0 units SQ TIDAC [facility] PRN Reason: Protocol Stop: 09/01/17 07:31 Last Admin: 03/03/17 07:39 Dose: Not Given Melatonin (Melatonin) 3 mg PO HS [facility] Stop: 08/31/17 23:25 Last Admin: 03/02/17 21:25 Dose: 3 mg Metoprolol Succinate (Toprol Xl) 150 mg PO DAILY [facility] Stop: 09/01/17 09:01 Last Admin: 03/02/17 09:08 Dose: 150 mg Naloxone HCl (Narcan) 0.4 mg IVP Q2MIN PRN PRN Reason: Opioid Reversal Stop: 08/31/17 21:19 Nitroglycerin (Nitroglycerin) 0.4 mg SL Q5M PRN PRN Reason: Chest Pain Stop: 08/31/17 21:26 Ondansetron HCl (Zofran) 4 mg IVP Q8HR PRN PRN Reason: Nausea And Vomiting Stop: 08/31/17 21:19 Pantoprazole Sodium (Protonix) 40 mg IVP DAILY [facility] Stop: 09/01/17 09:01 Last Admin: 03/02/17 09:11 Dose: 40 mg Senna/Docusate Sodium (Senna Plus) 1 each PO BID [facility] PRN Reason: Protocol Stop: 09/01/17 09:01 Last Admin: 03/02/17 21:25 Dose: 1 each Simethicone (Gas-X) 160 mg PO QID PRN PRN Reason: Gas/Gas Pain Stop: 08/31/17 21:26 Simvastatin (Zocor) 20 mg PO HS [facility] Stop: 09/01/17 21:01 Last Admin: 03/02/17 21:25 Dose: 20 mg Tamsulosin HCl (Flomax) 0.4 mg PO DAILY [facility] PRN Reason: Protocol Stop: 08/31/17 23:26 Last Admin: 03/02/17 09:09 Dose: 0.4 mg Tiotropium [place] (Spiriva) 18 mcg IH 0700 [facility] Stop: 09/01/17 07:01 Last Admin: 03/03/17 09:51 Dose: Not Given Trazodone HCl (Trazodone) 25 mg PO HS [facility] Stop: 08/31/17 23:25 Last Admin: 03/02/17 21:25 Dose: 25 mg - Imaging and Cardiology Stress Test: pending Echo: report reviewed Other Results: 12 hour tele: avg HR=68 SR. No PAF noted, paced at times. - EKG Interpretation EKG results cardiology: personally reviewed Consult Discharge Plan - Plan [facility]errals: [facility] [Primary Care Provider] -
--- NOTE | 2017-03-03 11:24 | Nuclear Medicine Stress Report ---
Regadenoson Nuclear Stress Name: Delfino Haynes Date of Study: 03/03/2017 Date: 1945 Ht: 70.0 in Medical Record#: [id number] Age: 71 Wt: 266.0 lb Gender: Male Order #: [id number] Location: [facility] Room: [facility] Supervising Provider: Cierra Orozco CNP Reading Physician: Raz Orta DO, FACC, FASNC Ordering Physician: Waqas Carlos MD Primary Care Physician: [facility] Stress Technologist: Ricardo Gallego RRT, CCT Stitch Bonding Machine Operator: Zach Hernandez Indications: Chest Pain Impression: Pharmacologic stress ECG is negative for ischemia at level of heart rate achieved. Gated EF > 70%. Perfusion imaging was negative for ischemia or infarct. History: Hypertension Diabetes Hypercholesteremia Prior PCI Stress Test Summary: Stress Test Type: Pharmacologic Regadenoson 0.4mg/5ml given IV Baseline Information: Initial Heart Rate: 72 Blood Pressure: 136/70 Stress Information: Stress Time: 4 min 00 sec Test Terminated Due to (primary): Completed Protocol Maximum Blood Pressure: 148/70 Maximum Heart Rate: 97 Percent Maximum Heart Rate Achieved: 64 Double Product: 14,356 METS Reached: 1 Symptoms: Flushing, Nausea Nuclear Summary: SPECT myocardial perfusion imaging using Tc99m Sestamibi given intravenously was performed at rest and following cardiac stress testing. The resting images were obtained following initial dose of 11.8 mCi. Following stress an additional dose of 35.6 mCi was given at peak exercise or 30 seconds post regadenoson infusion. Medication Given: Time Medication Dose Units Route Findings: Stress Note * Resting ECG demonstrated normal sinus rhythm. * No baseline arrhythmias were noted. * Pharmacologic stress ECG is negative for ischemia at level of heart rate achieved. * No arrhythmias were noted during stress. * Patient had no chest pain during stress. Hemodynamic responses * Normal hemodynamic responses to pharmacologic stress. Study Quality * Study quality is average. Gated EF > 70% * Gated EF > 70%. Left Ventricle * The left ventricle is not dilated. NORMALS * Normal wall motion. * Normal Segmental Perfusion in rest. * Normal segmental perfusion in stress. TID * No evidence of transient ischemic dilatation. TID ratio = 0.77. Lung Uptake * There is no evidence of increase lung uptake. Updated by Raz Orta DO, FACC, FASTootie, FASNC on 03/03/2017 11:18:58 AM electronically signed on 03/03/2017 11:20:02 AM with status of Final
--- NOTE | 2017-03-03 13:07 | General Surgery Progress Note ---
Date of Encounter: 03/03/17 Time of Encounter: 13:05 - Assessment and Plan (1) Biliary dyskinesia Current Visit: Yes Status: Acute Patient with gallstones and signs of either symptomatically or dyskinesia or biliary colic. He has had a cardiology evaluation and appears to be in a low risk stratification for a laparoscopic cholecystectomy. We will likely proceed with the cholecystectomy within the next 24 hours. Risk and benefits discussed with the patient. Subjective Patient reports: no new complaints, other (Admits to some mild epigastric abdominal discomfort. No nausea or vomiting.) Objective Intake and Output 03/02/17 03/03/17 03/03/17 23:59 07:59 15:59 Other: Weight 120.973 kg Blood Glucose* 187 Patient Weight 03/03/17 23:59 Weight 120.973 kg - General physical appearance well nourished, no distress - Abdomen Abdomen: Present: bowel sounds present, soft (Obese.), tender (mildly tender in the RUQ and epigastrum. ) - Labs 03/04/17 02:54 03/04/17 02:54 Diabetes panel 03/03/17 Range/Units 04:47 Sodium 139 (136-145) mEq/L Potassium 3.9 (3.5-4.5) mEq/L Chloride 103 (98-109) mEq/L Carbon Dioxide 26 (19-29) mEq/L BUN 22 (8-26) mg/dL Creatinine 1.31 H (0.72-1.25) mg/dL Glucose 122 H (70-99) mg/dL Calcium 9.1 (8.6-10.8) mg/dL AST 16 (5-34) Units/L ALT 22 (0-55) Units/L Alkaline Phosphatase 55 (38-126) Units/L Albumin 3.7 (3.5-5.0) g/dL Calcium panel 03/03/17 Range/Units 04:47 Calcium 9.1 (8.6-10.8) mg/dL Albumin 3.7 (3.5-5.0) g/dL Pituitary panel 03/03/17 Range/Units 04:47 Sodium 139 (136-145) mEq/L Potassium 3.9 (3.5-4.5) mEq/L Chloride 103 (98-109) mEq/L Carbon Dioxide 26 (19-29) mEq/L BUN 22 (8-26) mg/dL Creatinine 1.31 H (0.72-1.25) mg/dL Glucose 122 H (70-99) mg/dL Calcium 9.1 (8.6-10.8) mg/dL Adrenal panel 03/03/17 Range/Units 04:47 Sodium 139 (136-145) mEq/L Potassium 3.9 (3.5-4.5) mEq/L Chloride 103 (98-109) mEq/L Carbon Dioxide 26 (19-29) mEq/L BUN 22 (8-26) mg/dL Creatinine 1.31 H (0.72-1.25) mg/dL Glucose 122 H (70-99) mg/dL Calcium 9.1 (8.6-10.8) mg/dL Total Bilirubin 0.6 (0.2-1.2) mg/dL AST 16 (5-34) Units/L ALT 22 (0-55) Units/L Alkaline Phosphatase 55 (38-126) Units/L Albumin 3.7 (3.5-5.0) g/dL Consult Discharge Plan - Plan Referrals: [facility] [Primary Care Provider] -
--- NOTE | 2017-03-03 17:17 | Internal Med Progress Note ---
Date of Encounter: 03/03/17 Time of Encounter: 17:16 - Assessment and plan (1) Abdominal pain Current Visit: Yes Status: Acute Qualifiers: Abdominal location: right upper quadrant Qualified Code(s): R10.11 - Right upper quadrant pain (2) Cholelithiasis Current Visit: No Status: Chronic Qualifiers: Cholelithiasis location: gallbladder Cholecystitis presence: without cholecystitis Biliary obstruction: without biliary obstruction Qualified Code(s): K80.20 - Calculus of gallbladder without cholecystitis without obstruction (3) Chest pain Current Visit: No Status: Acute Qualifiers: Chest pain type: unspecified Qualified Code(s): R07.9 - Chest pain, unspecified (4) CAD (coronary artery disease) Current Visit: Yes Status: Chronic Qualifiers: Coronary Disease-Associated Artery/Lesion type: [place] artery [place] vs. transplanted heart: [place] heart Associated angina: without angina Qualified Code(s): I25.10 - Atherosclerotic heart disease of [place] coronary artery without angina pectoris (5) Diabetes Current Visit: No Status: Acute Qualifiers: Diabetes mellitus type: type 2 Diabetes mellitus complication status: without complication Diabetes mellitus terminal gauger insulin use: with snf use Qualified Code(s): E11.9 - Type 2 diabetes mellitus without complications ; Z79.4 - [facility]FP (current) use of insulin (6) A-fib Current Visit: Yes Status: Chronic Qualifiers: Atrial fibrillation type: chronic Qualified Code(s): I48.2 - Chronic atrial fibrillation (7) COPD (chronic obstructive pulmonary disease) Current Visit: No Status: Chronic Qualifiers: COPD type: emphysema Emphysema type: unspecified Qualified Code(s): J43.9 - Emphysema, unspecified (8) CKD (chronic kidney disease) stage 3, GFR 30-59 ml/min Current Visit: Yes Status: Acute - Subjective Interval history: Mr. Haynes is a 71 year old male with past medical history of atrial fibrillation, CHF (last echo 04/02 showed EF 60-65% with mild left ventricular hypertrophy and mild left ventricle diastolic dysfunction), COPD, CKD ,coronary artery disease, diabetes mellitus type 2, pacemaker, and hypertension who was transferred to [place] from the [facility] due to concern for cholelithiasis. Patient transferred to [place] after spending roughly 1 week at the [facility]. 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 He also has a history of carotid endarterectomy and after a carotid ultrasound and CTA of his neck he was found to have 20% stenosis of his left carotid in unspecified stenosis of the right though there was mention of decreased blood flow.It was noted that cardio vascular surgery has been consulted on admission due to carotid stenosis as well as SMA 50% stenosis with hypoattenuated region and kidney [facility] Patient was seen this morning. He is eating full light. His abdominal pain is much better now. Examination is essentially remained unremarkable General surgery has evaluated the patient and plan to proceed with cholecystectomy provided patient is medically cleared. His EKG and troponins are negative as well as stress test.. He also has underlying COPD however breathing is status is stable at this time. Cardiology has cleared the patient. - Constitutional Vitals: Temp Pulse Resp BP Pulse Ox 99.1 F 72 15 143/75 93 03/03/17 15:47 03/03/17 15:47 03/03/17 15:47 03/03/17 15:47 03/03/17 15:47 General appearance: Present: A&O X 3, morbidly obese, pleasant, no acute distress, answers questions appropriately - Head Head exam: Present: atraumatic, normocephalic - Eye Eye exam: Present: PERRL, conjuntiva pink, sclera anicteric Pupils: Present: PERRL - Neck Neck exam general surgery: Present: supple, trachea midline. Absent: lymphadenopathy - Respiratory Respiratory exam: Present: CTAB. Absent: accessory muscle use, rales, rhonchi, wheezes - Cardiovascular Cardiovascular exam: Present: RRR, +S1, +S2. Absent: diastolic murmur, gallop, rubs, systolic murmur - GI/Abdominal GI/Abdominal exam: Present: normal bowel sounds, soft, no peritoneal signs. Absent: distended, tenderness - Extremities Exam Extremities exam: Present: warm, radial pulses palpable and symmetrical. Absent : calf tenderness, cyanotic, pedal edema - Neurological Exam Neurological exam: Present: CN II-XII intact, oriented X3, no focal deficits. Absent: pronater drift, facial droop, speech deficit - Skin Skin exam: Present: dry, intact Internal Medicine: Result - Labs CBC & Chem 7: 03/03/17 04:47 03/03/17 04:47 Labs: Short CBC 03/03/17 Range/Units 04:47 WBC 6.3 (4.3-11.1) K/mcL Hgb 11.9 L (12.9-16.9) g/dL Hct 37.5 (37.5-50.1) % Plt Count 216 (140-400) K/mcL Neutrophils # 3.8 (1.6-8.9) K/mcL BMP 03/03/17 04:47 Sodium 139 Potassium 3.9 Chloride 103 Carbon Dioxide 26 BUN 22 Creatinine 1.31 H Glucose 122 H Calcium 9.1 Liver Function 03/03/17 Range/Units 04:47 Total Bilirubin 0.6 (0.2-1.2) mg/dL AST 16 (5-34) Units/L ALT 22 (0-55) Units/L Alkaline Phosphatase 55 (38-126) Units/L Albumin 3.7 (3.5-5.0) g/dL - ABG Interpretation ABG results: PT/INR, D-dimer PT 12.1 Seconds (9.4-12.1) 03/02/17 06:26 Consult Discharge Plan - Plan [facility]errals: [facility] [Primary Care Provider] -
[2017-03-03] MEDS: Acetaminophen 325 MG TABLET PO PRN (21:04)
[2017-03-03] MEDS: Melatonin 3 MG TABLET PO SCH (21:05)
[2017-03-03] MEDS: traZODone 50 MG TABLET PO SCH (21:06)
[2017-03-04] MEDS ORDERED: 0.9 % Sodium Chloride 1,000 ML IVC SCH (01:00)
[2017-03-04 04:07] LABS: Basophils # 0.1 K/mcL (0.0-0.2); Basophils % 0.7 %; Eosinophils # 0.3 K/mcL (0.0-0.6); Eosinophils % 3.4 %; Hemoglobin 12.3 g/dL (12.9-16.9); Immature Granulocytes % 0.7 % (0-4); Lymphocytes # 2.3 K/mcL (0.6-4.6); Lymphocytes % 31.4 %; Mean Corpuscular HGB Conc 32.4 g/dL (31.6-35.5); Mean Corpuscular Hemoglobin 27.3 pg (28.0-33.3); Mean Corpuscular Volume 84.4 fL (83.0-100.0); Mean Platelet Volume 10.7 fL (9.4-12.4); Monocytes # 0.9 K/mcL (0.0-1.3); Monocytes % 11.9 %; Neutrophils # 3.9 K/mcL (1.6-8.9); Platelet Count 222 K/mcL (140-400); Red Cell Distribution Width 14.2 % (11.5-14.5); Segmented Neutrophils % 51.9 %
[2017-03-04 04:28] LABS: Alanine Aminotransferase 20 Units/L (0-55); Albumin 3.2 g/dL (3.5-5.0); Albumin/Globulin Ratio 0.8 (1.1-2.2); Alkaline Phosphatase 56 Units/L (38-126); Aspartate Amino Transferase 16 Units/L (5-34); BUN/Creatinine Ratio 16 (6-26); Bilirubin,Total 0.5 mg/dL (0.2-1.2); Blood Urea Nitrogen 20 mg/dL (8-26); Calcium 9.2 mg/dL (8.6-10.8); Carbon Dioxide 26 mEq/L (19-29); Chloride 104 mEq/L (98-109); Globulin 4.2 g/dL (2.4-3.5); Glucose 131 mg/dL (70-99); Osmolality,Calculated 292 (280-300); Potassium 4.2 mEq/L (3.5-4.5); Sodium 139 mEq/L (136-145); Total Protein 7.4 g/dL (6.0-8.3); eGFR For African Americans > 60 (> 60); eGFR For Non-African Americans 58 (> 60)
--- NOTE | 2017-03-04 07:47 | Internal Med Progress Note ---
Date of Encounter: 03/04/17 Time of Encounter: 07:46 - Assessment and plan (1) Abdominal pain Current Visit: Yes Status: Acute Qualifiers: Abdominal location: right upper quadrant Qualified Code(s): R10.11 - Right upper quadrant pain (2) Cholelithiasis Current Visit: No Status: Chronic Qualifiers: Cholelithiasis location: gallbladder Cholecystitis presence: without cholecystitis Biliary obstruction: without biliary obstruction Qualified Code(s): K80.20 - Calculus of gallbladder without cholecystitis without obstruction (3) Chest pain Current Visit: No Status: Acute Qualifiers: Chest pain type: unspecified Qualified Code(s): R07.9 - Chest pain, unspecified (4) CAD (coronary artery disease) Current Visit: Yes Status: Chronic Qualifiers: Coronary Disease-Associated Artery/Lesion type: [place] artery [place] vs. transplanted heart: [place] heart Associated angina: without angina Qualified Code(s): I25.10 - Atherosclerotic heart disease of [place] coronary artery without angina pectoris (5) Diabetes Current Visit: No Status: Acute Qualifiers: Diabetes mellitus type: type 2 Diabetes mellitus complication status: without complication Diabetes mellitus manager terminal insulin use: with fdc use Qualified Code(s): E11.9 - Type 2 diabetes mellitus without complications ; Z79.4 - [facility]PC (current) use of insulin (6) A-fib Current Visit: Yes Status: Chronic Qualifiers: Atrial fibrillation type: chronic Qualified Code(s): I48.2 - Chronic atrial fibrillation (7) COPD (chronic obstructive pulmonary disease) Current Visit: No Status: Chronic Qualifiers: COPD type: emphysema Emphysema type: unspecified Qualified Code(s): J43.9 - Emphysema, unspecified (8) CKD (chronic kidney disease) stage 3, GFR 30-59 ml/min Current Visit: Yes Status: Acute - Subjective Interval history: Mr. Haynes is a 71 year old male with past medical history of atrial fibrillation, CHF (last echo 04/02 showed EF 60-65% with mild left ventricular hypertrophy and mild left ventricle diastolic dysfunction), COPD, CKD ,coronary artery disease, diabetes mellitus type 2, pacemaker, and hypertension who was transferred to [place] from the [facility] due to concern for cholelithiasis. Patient transferred to [place] after spending roughly 1 week at the [facility]. 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 He also has a history of carotid endarterectomy and after a carotid ultrasound and CTA of his neck he was found to have 20% stenosis of his left carotid in unspecified stenosis of the right though there was mention of decreased blood flow.It was noted that cardio vascular surgery has been consulted on admission due to carotid stenosis as well as SMA 50% stenosis with hypoattenuated region and kidney [facility] 03/03 Patient was seen this morning. He is eating full light. His abdominal pain is much better now. Examination is essentially remained unremarkable General surgery has evaluated the patient and plan to proceed with cholecystectomy provided patient is medically cleared. His EKG and troponins are negative as well as stress test.. He also has underlying COPD however breathing is status is stable at this time. Cardiology has cleared the patient. 03/04 Asymptomatic, planned for surgery - Constitutional Vitals: Temp Pulse Resp BP Pulse Ox 98.0 F 69 17 159/77 93 03/04/17 07:31 03/04/17 07:31 03/04/17 07:31 03/04/17 07:31 03/04/17 07:31 General appearance: Present: A&O X 3, morbidly obese, pleasant, no acute distress, answers questions appropriately Internal Medicine: Result - Labs CBC & Chem 7: 03/04/17 02:54 03/04/17 02:54 Labs: Short CBC 03/04/17 Range/Units 02:54 WBC 7.4 (4.3-11.1) K/mcL Hgb 12.3 L (12.9-16.9) g/dL Hct 38.0 (37.5-50.1) % Plt Count 222 (140-400) K/mcL Neutrophils # 3.9 (1.6-8.9) K/mcL BMP 03/04/17 02:54 Sodium 139 Potassium 4.2 Chloride 104 Carbon Dioxide 26 BUN 20 Creatinine 1.24 Glucose 131 H Calcium 9.2 Liver Function 03/04/17 Range/Units 02:54 Total Bilirubin 0.5 (0.2-1.2) mg/dL AST 16 (5-34) Units/L ALT 20 (0-55) Units/L Alkaline Phosphatase 56 (38-126) Units/L Albumin 3.2 L (3.5-5.0) g/dL - ABG Interpretation ABG results: PT/INR, D-dimer PT 12.1 Seconds (9.4-12.1) 03/02/17 06:26 Consult Discharge Plan - Plan [facility]errals: [facility] [Primary Care Provider] -
[2017-03-04] MEDS: Metoprolol XL (24 HR) Succ 50 MG TAB.ER.24H PO SCH (08:00)
[2017-03-04] MEDS: Furosemide 40 MG TABLET PO SCH (08:00)
[2017-03-04] MEDS: Aspirin Enteric Coated 81 MG Tablet PO SCH (08:06)
[2017-03-04] MEDS: Insulin LISPRO 300 UNITS/3 ML VIAL SQ SCH ×4 (08:06→21:39)
[2017-03-04] MEDS: Baclofen 10 MG TABLET PO SCH ×3 (08:07→21:39)
[2017-03-04] MEDS: Finasteride 5 MG TABLET PO SCH (08:07)
[2017-03-04] MEDS: Pantoprazole 40 MG VIAL IVP SCH (08:07)
[2017-03-04] MEDS: Sennosides/Docusate Sodium TABLET PO SCH (08:07)
[2017-03-04] MEDS: Gabapentin 300 MG CAPSULE PO SCH ×3 (08:07→21:39)
--- NOTE | 2017-03-04 08:21 | Anesthesia Evaluation PreOp ---
Date of Encounter: 03/04/17 Time of Encounter: 09:42 - Past History Planned Operation: Laparoscopic Cholecystectomy Cardiac History: MA, HTN, Hyperlipidemia, Arrhythmia (H/O paroxysmal A-Fib), Cardiac Stent, Pacemaker/ICD Pulmonary History: Former smoker (quit 24 years ago), COPD (home O2 2L qhs), Snore, [employer] Dx [employer] History: Denies Any Significant HX Other Medical History: Renal, Diabetes Type II Anesthesia History: No Prior Anesthetic Complications, Past Anesthesia Alcohol Use: occasionally (last drink was 6 weeks ago) Drug use: none Medications and Allergies Aspirin Enteric Coated [Aspirin EC] 81 mg PO DAILY 04/13/15 [History] Gabapentin [Neurontin] 600 mg PO TID 04/13/15 [History] Metformin HCl [Glucophage] 1,000 mg PO BID 04/13/15 [History] Oxygen 2 l NS AD 01/26/16 [History] Spironolactone [Aldactone] 25 mg PO DAILY 01/26/16 [History] Metoprolol Succinate 150 mg PO DAILY 12/12/16 [History] Acetaminophen [Tylenol] 650 mg PO TID PRN 03/01/17 [History] Albuterol Sulfate [Albuterol Inhaler] 2 puff IH Q6H PRN 03/01/17 [History] Atorvastatin [Lipitor] 10 mg PO HS 03/01/17 [History] Baclofen [Lioresal] 10 mg PO TID 03/01/17 [History] Dicyclomine [Bentyl] 10 mg PO QID 03/01/17 [History] Diphenoxylate/Atropine [Lomotil 2.5 mg/0.025 mg] 1 each PO TID PRN 03/01/17 [ History] Finasteride [Proscar] 5 mg PO DAILY 03/01/17 [History] Furosemide [Lasix] 40 mg PO DAILY 03/01/17 [History] Losartan Potassium [Cozaar] 100 mg PO DAILY 03/01/17 [History] Melatonin [Melatin] 3 mg PO HS 03/01/17 [History] Nitroglycerin [Nitrostat] 0.4 mg SL Q5M PRN 03/01/17 [History] Omeprazole [PriLOSEC] 20 mg PO DAILY 03/01/17 [History] Sennosides/Docusate Sodium [Senna Plus] 1 each PO BID 03/01/17 [History] Simethicone [Gas-X] 160 mg PO QID PRN 03/01/17 [History] Tamsulosin [Flomax] 0.4 mg PO DAILY 03/01/17 [History] Tiotropium [Spiriva] 18 mcg IH 0700 03/01/17 [History] traZODone [TraZODone] 25 mg PO HS 03/01/17 [History] 3 Allergy/AdvReac Type Severity Reaction Status Date / Time lisinopril Allergy Hives Verified 12/12/16 07:23 tetanus immune globulin Allergy Rash Verified 12/12/16 07:23 - Meds/Allergy Pre-op Review Medications Reviewed: Yes Allergies Reviewed: Yes Beta Blockers on Current Med List: Yes If Beta Blockers taken, Date/Time (Last Dose taken): 03/04/2017 at 0800 Anesthesia Results - Labs 03/04/17 02:54 03/04/17 02:54 - Imaging EKG: report reviewed (07/14/2016 SINUS RHYTHM) Additional studies: 03/03/2017 Stress Impression: Pharmacologic stress ECG is negative for ischemia at level of heart rate achieved. Gated EF > 70%. Perfusion imaging was negative for ischemia or infarct. 04/13/2016 Echo Impressions: Normal LV systolic function, LVEF 60-65%. Mild concentric left ventricular hypertrophy. Mild left ventricular diastolic dysfunction. Normal right ventricular structure and function. A device lead was visualized in the right atrium and right ventricle. No significant valvular dysfunction. No evidence of pulmonary hypertension. 07/30/2013 Stress Impression: * Perfusion imaging was negative for ischemia or infarct. * Pharmacologic ECG was negative for ischemia at the level of heart rate achieved. * Patient had no chest pain with stress. * Normal hemodynamic response. * No arrhythmias noted with stress. * Gated EF = 70%. * The LV is not dilated. * TID ratio 1.29. Visually, there is very mild TID. This is a nonspecific finding that can be associated with significant CAD. Clinical correlation suggested. 07/30/2013 Echo Impressions: * LVEF 65%. Normal left ventricular size and systolic function. * There is evidence of mild (Grade I) diastolic dysfunction of the left ventricle. * Normal right ventricular size and function. * No significant valvular dysfunction. Mild mitral annular calcification. * Mildly sclerotic and thickened aortic valve but no stenosis. * Estimated RVSP was 26 mmHg. * No pulmonary hypertension. * Clinical correlation is suggested. Anesthesia Exam Vital Signs/O2 Sat/Glucose, Most Recent Temp Pulse Resp BP Pulse Ox 98.0 F 69 17 159/77 93 03/04/17 07:31 03/04/17 07:31 03/04/17 07:31 03/04/17 07:31 03/04/17 07:31 Blood Glucose* 154 Height: 5'11''/1.8 m Weight: 266 lbs/120.973 kg NPO (# of Hours): 8 Pain Scale: 0 Pain Scale Used: Numeric (1 - 10) - HEENT Pupil (Motor): EOMI Mallampati: III Teeth: Edentulous Oral Opening: Greater than 3 - [employer]LL[employer] LOC: Oriented [employer] Motor: Normal Face, Deficit RUE, Deficit LUE, Deficit RLE, Deficit LLE [employer] Sensory: Normal: Face, Deficit: RUE, LUE, RLE, LLE - Cardiac Rhythm: Regular Murmur: None - Pulmonary Breath Sounds: bilateral Clear Respiratory Effort: Symmetrical Anesthesia Assess/Plan ASA Score: 4 (Patient understands that he is at increased risk for perioperative complications including myocardial infarct, arrhythmias, CVA, post op vent support/ICU stay, and . Patient wishes to proceed.) Modified [place] Scale for Level of Consciousness: Cooperative, oriented, and tranquil Anesthetic Plan: General Monitoring Plan: Standard Monitors Recovery Plan: PACU
[2017-03-04] MEDS ORDERED: Albuterol 2.5 MG/3 ML NEBULIZER ONE (09:03)
[2017-03-04] MEDS ORDERED: *HR* Propofol 200 MG/20 ML VIAL IVP ONE (09:23)
[2017-03-04] MEDS ORDERED: *HR* FentaNYL (PF) 100 MCG/2 ML VIAL ONE (09:23)
[2017-03-04] MEDS ORDERED: *HR* Morphine 10 MG/ML VIAL ONE (09:23)
[2017-03-04] MEDS ORDERED: *HR* Midazolam HCl 2 MG/2 ML VIAL ONE (09:23)
[2017-03-04] MEDS ORDERED: *HR* Succinylcholine 200 MG/10 ML VIAL IVP ONE (09:25)
[2017-03-04] MEDS ORDERED: Lidocaine -MPF 2% 2 ML VIAL ONE (09:25)
[2017-03-04] MEDS ORDERED: *HR* Rocuronium Bromide 50 MG/5 ML VIAL ONE (09:25)
[2017-03-04] MEDS ORDERED: *HR* Promethazine 25 MG/ML VIAL IVP PRN (09:42)
[2017-03-04] MEDS ORDERED: CefOXitin 2,000 MG VIAL IVPB ONE (10:02)
[2017-03-04] MEDS: Tiotropium 18 MCG inhalation IH SCH (10:13)
[2017-03-04] MEDS ORDERED: Ondansetron 4 MG/2 ML VIAL ONE (10:15)
[2017-03-04] MEDS ORDERED: Dexamethasone 4 MG/ML VIAL ONE (10:15)
[2017-03-04] MEDS ORDERED: Neostigmine Methylsulfate 3 MG/3 ML SYRINGE ONE (10:15)
[2017-03-04] MEDS ORDERED: cefOXitin 2,000 MG in D5% in Water (Mini-Bag+) 100 ML IVPB ONE (10:19)
--- NOTE | 2017-03-04 11:08 | Operative Note ---
Date of procedure: 03/04/17 Pre-op diagnosis: Symptomatic biliary colic Post-op diagnosis: other (Chronic cholecystitis) Procedure: Laparoscopic cholecystectomy Anesthesia: GUADALUPE Surgeon: Jeremy Mandujano Estimated blood loss (cc): 20 Specimen: gallbladder and contents Condition: stable Disposition: PACU Procedure in Detail: Date of surgery: 03/04/17 After properly identifying the patient, the patient was brought to the operating room and placed in the supine position. After proper IV sedation was achieved followed by general endotracheal intubation, the patient's abdomen was prepped and draped in a normal sterile fashion. A timeout was performed noting the patient's name and type of procedure to be performed. A supraumbilical incision with an 11 blade scalpel was made down to the level of the rectus fascia. The rectus fascia was incised and the abdomen was entered and a 12 mm port was placed through the incision. The abdomen was insufflated with carbon dioxide and a laparoscopic camera was placed through the port which showed no injury to the intra-abdominal organs upon entry. A subxiphoid 5 mm port and a right subcostal margin 5 mm port were then placed under direct camera visualization. The patient was placed in a reverse Trendelenburg position. The gallbladder was noted to be distended and inflamed, consistent with chronic cholecystitis. The peritoneal covering overlying the infundibulum was bluntly dissected away with the [place] dissector. The gallbladder was iatrogenically entered with spillage of bilious fluid and identification of a large gallstone. A portion of the distal infundibulum was clipped laparoscopic clips and incised with laparoscopic scissors which allowed for better visualization of the remnant of the gallbladder. Careful dissection of the gallbladder was performed off the gallbladder fossa with Bovie cauterization and blunt dissection. Once this was freed the remnant of the gallbladder was removed and positioned in the right upper quadrant for eventual removal. The remaining infundibulum segment was grasped and retracted anteriorly. There was chronic inflammation in this area but careful dissection with the [place] dissector was performed to allow for visualization of the cystic duct and the cystic artery which were further isolated, clipped with laparoscopic clips and incised with laparoscopic scissors. The segment was then removed and positioned in a laparoscopic Endobag was used to remove the infundibulum, dome of the gallbladder segment, and the large gallstone. Re-visualization of the gallbladder fossa demonstrated maintenance of hemostasis and all ports were then removed from the abdomen after the abdomen was desufflated. The rectus fascia for the supraumbilical incision was reapproximated with a [id number] 0 Vicryl suture. The subcutaneous tissue was reapproximated with interrupted 3-0 Vicryl sutures. The epidermal and dermal layers for the remaining incisions were reapproximated with 4-0 Monocryl sutures. Needle, sponge, and instrument counts were correct 2 and the incisions were covered with Steri-Strips and Band-Aids. The patient was aroused from IV sedation, extubated in the operating room without complication, and transported to the recovery room in stable condition
[2017-03-04] MEDS ORDERED: *HR* Labetalol 20 MG/4 ML SYRINGE IVP ONE (11:32)
[2017-03-04] MEDS ORDERED: *HR* Labetalol 20 MG/4 ML SYRINGE IVP PRN (11:57)
[2017-03-04] MEDS: *HR* HYDROmorphone (PF) 1 MG/ML SYRINGE IVP PRN ×4 (11:58→16:49)
[2017-03-04] MEDS ORDERED: Simethicone 80 MG TAB.CHEW PO PRN (13:20)
[2017-03-04] MEDS ORDERED: D5% in Water 1,000 ML IVC PRN (13:20)
[2017-03-04] MEDS ORDERED: Ondansetron 4 MG/2 ML VIAL IVP PRN (13:20)
[2017-03-04] MEDS ORDERED: *HR* Dextrose 50 % in Water (Syg) 50 ML SYRINGE IVP PRN (13:20)
[2017-03-04] MEDS ORDERED: Dextrose Gel 15 GM PO PRN ×2 (13:20)
[2017-03-04] MEDS ORDERED: Naloxone 0.4 MG/ML INJ IVP PRN (13:20)
[2017-03-04] MEDS ORDERED: Nitroglycerin 0.4 MG TAB.SUBL SL PRN (13:20)
--- NOTE | 2017-03-04 13:44 | Internal Med Progress Note ---
Date of Encounter: 03/04/17 Time of Encounter: 13:43 - Assessment and plan (1) Abdominal pain Current Visit: Yes Status: Acute Qualifiers: Abdominal location: right upper quadrant Qualified Code(s): R10.11 - Right upper quadrant pain (2) Cholelithiasis Current Visit: No Status: Chronic Qualifiers: Cholelithiasis location: gallbladder Cholecystitis presence: without cholecystitis Biliary obstruction: without biliary obstruction Qualified Code(s): K80.20 - Calculus of gallbladder without cholecystitis without obstruction (3) Chest pain Current Visit: No Status: Acute Qualifiers: Chest pain type: unspecified Qualified Code(s): R07.9 - Chest pain, unspecified (4) CAD (coronary artery disease) Current Visit: Yes Status: Chronic Qualifiers: Coronary Disease-Associated Artery/Lesion type: [place] artery [place] vs. transplanted heart: [place] heart Associated angina: without angina Qualified Code(s): I25.10 - Atherosclerotic heart disease of [place] coronary artery without angina pectoris (5) Diabetes Current Visit: No Status: Acute Qualifiers: Diabetes mellitus type: type 2 Diabetes mellitus complication status: without complication Diabetes mellitus rn long term care insulin use: with [place] [facility] use Qualified Code(s): E11.9 - Type 2 diabetes mellitus without complications ; Z79.4 - [facility]aster (current) use of insulin (6) A-fib Current Visit: Yes Status: Chronic Qualifiers: Atrial fibrillation type: chronic Qualified Code(s): I48.2 - Chronic atrial fibrillation (7) COPD (chronic obstructive pulmonary disease) Current Visit: No Status: Chronic Qualifiers: COPD type: emphysema Emphysema type: unspecified Qualified Code(s): J43.9 - Emphysema, unspecified (8) CKD (chronic kidney disease) stage 3, GFR 30-59 ml/min Current Visit: Yes Status: Acute - Subjective Interval history: Mr. Haynes is a 71 year old male with past medical history of atrial fibrillation, CHF (last echo 04/02 showed EF 60-65% with mild left ventricular hypertrophy and mild left ventricle diastolic dysfunction), COPD, CKD ,coronary artery disease, diabetes mellitus type 2, pacemaker, and hypertension who was transferred to [place] from the [facility] due to concern for cholelithiasis. Patient transferred to [place] after spending roughly 1 week at the [facility]. 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 He also has a history of carotid endarterectomy and after a carotid ultrasound and CTA of his neck he was found to have 20% stenosis of his left carotid in unspecified stenosis of the right though there was mention of decreased blood flow.It was noted that cardio vascular surgery has been consulted on admission due to carotid stenosis as well as SMA 50% stenosis with hypoattenuated region and kidney [facility] 03/03 Patient was seen this morning. He is eating full light. His abdominal pain is much better now. Examination is essentially remained unremarkable General surgery has evaluated the patient and plan to proceed with cholecystectomy provided patient is medically cleared. His EKG and troponins are negative as well as stress test.. He also has underlying COPD however breathing is status is stable at this time. Cardiology has cleared the patient. 03/04 Asymptomatic, planned for surgery. CBC CMP reviewed. No white count and her renal function has normalized now with creatinine of only 1.24 as noted above stress test is negative. - Constitutional Vitals: Temp Pulse Resp BP Pulse Ox 98.0 F 75 14 137/88 94 03/04/17 12:42 03/04/17 13:14 03/04/17 13:14 03/04/17 13:14 03/04/17 13:14 General appearance: Present: A&O X 3, morbidly obese, pleasant, no acute distress, answers questions appropriately - Head Head exam: Present: atraumatic, normocephalic - Eye Eye exam: Present: PERRL, conjuntiva pink, sclera anicteric Pupils: Present: PERRL - Neck Neck exam general surgery: Present: supple, trachea midline. Absent: lymphadenopathy - Respiratory Respiratory exam: Present: CTAB. Absent: accessory muscle use, rales, rhonchi, wheezes - Cardiovascular Cardiovascular exam: Present: RRR, +S1, +S2. Absent: diastolic murmur, gallop, rubs, systolic murmur - GI/Abdominal GI/Abdominal exam: Present: normal bowel sounds, soft, no peritoneal signs. Absent: distended, tenderness - Extremities Exam Extremities exam: Present: warm, radial pulses palpable and symmetrical. Absent : calf tenderness, cyanotic, pedal edema - Neurological Exam Neurological exam: Present: CN II-XII intact, oriented X3, no focal deficits. Absent: pronater drift, facial droop, speech deficit - Skin Skin exam: Present: dry, intact Internal Medicine: Result - Labs CBC & Chem 7: 03/04/17 02:54 03/04/17 02:54 Labs: Short CBC 03/04/17 Range/Units 02:54 WBC 7.4 (4.3-11.1) K/mcL Hgb 12.3 L (12.9-16.9) g/dL Hct 38.0 (37.5-50.1) % Plt Count 222 (140-400) K/mcL Neutrophils # 3.9 (1.6-8.9) K/mcL BMP 03/04/17 02:54 Sodium 139 Potassium 4.2 Chloride 104 Carbon Dioxide 26 BUN 20 Creatinine 1.24 Glucose 131 H Calcium 9.2 Liver Function 03/04/17 Range/Units 02:54 Total Bilirubin 0.5 (0.2-1.2) mg/dL AST 16 (5-34) Units/L ALT 20 (0-55) Units/L Alkaline Phosphatase 56 (38-126) Units/L Albumin 3.2 L (3.5-5.0) g/dL - ABG Interpretation ABG results: PT/INR, D-dimer PT 12.1 Seconds (9.4-12.1) 03/02/17 06:26 Consult Discharge Plan - Plan [facility]errals: [facility] [Primary Care Provider] -
[2017-03-04] MEDS: *HR* OxyCODONE/APAP 10/325 TABLET PO PRN (15:25)
[2017-03-04] MEDS: cefOXitin 1,000 MG in D5% in Water (Mini-Bag+) 100 ML IVPB SCH (15:29)
[2017-03-04] MEDS ORDERED: *HR* HYDROmorphone (PF) 1 MG/ML SYRINGE IVP ONE (17:01)
[2017-03-04] MEDS ORDERED: *HR* HYDROmorphone (PF) 1 MG/ML SYRINGE IVP PRN (17:02)
--- NOTE | 2017-03-04 17:15 | Anesthesia Evaluation Post Op ---
Date of Encounter: 03/04/17 Time of Encounter: 17:11 - Vital Signs Vital Signs: Vital Signs/O2 Sat, Most Current Temp Pulse Resp BP Pulse Ox 98.0 F 80 16 196/90 94 03/04/17 12:42 03/04/17 14:16 03/04/17 14:16 03/04/17 15:40 03/04/17 14:16 - Lungs Lungs: Clear Ascult./Percussion - Airway Airway: Non-obstructed - Cardiovascular Regular Rate - Mental Status Mental Status: Asleep with brisk response to light stimulation - Pain Pain Scale: 8 (Dr Mandujano notified of patient's severe pain) Pain Scale used: Numeric (1 - 10) - Nausea Vomiting Nausea Vomiting: Not Present - Hydration Hydration: NPO, Has not voided
[2017-03-04] MEDS: Melatonin 3 MG TABLET PO SCH (21:38)
[2017-03-04] MEDS: traZODone 50 MG TABLET PO SCH (21:38)
[2017-03-04] MEDS: 0.9 % Sodium Chloride 1,000 ML IVC SCH (21:39)
[2017-03-05] MEDS: cefOXitin 1,000 MG in D5% in Water (Mini-Bag+) 100 ML IVPB SCH ×4 (00:34→23:40)
[2017-03-05] MEDS: 0.9 % Sodium Chloride 1,000 ML IVC SCH (02:43)
[2017-03-05 05:09] LABS: Basophils % 0.2 %; Hematocrit 41.4 % (37.5-50.1); Hemoglobin 13.3 g/dL (12.9-16.9); Immature Granulocytes % 0.4 % (0-4); Lymphocytes % 5.4 %; Mean Corpuscular HGB Conc 32.1 g/dL (31.6-35.5); Mean Corpuscular Hemoglobin 26.9 pg (28.0-33.3); Mean Corpuscular Volume 83.6 fL (83.0-100.0); Mean Platelet Volume 10.5 fL (9.4-12.4); Monocytes # 2.1 K/mcL (0.0-1.3); Monocytes % 10.8 %; Neutrophils # 15.9 K/mcL (1.6-8.9); Platelet Count 251 K/mcL (140-400); Red Blood Count 4.95 M/mcL (4.19-5.50); Red Cell Distribution Width 14.6 % (11.5-14.5); Segmented Neutrophils % 83.2 %
[2017-03-05 05:25] LABS: Alanine Aminotransferase 115 Units/L (0-55); Albumin 3.3 g/dL (3.5-5.0); Albumin/Globulin Ratio 0.7 (1.1-2.2); Alkaline Phosphatase 67 Units/L (38-126); Aspartate Amino Transferase 85 Units/L (5-34); BUN/Creatinine Ratio 13 (6-26); Blood Urea Nitrogen 16 mg/dL (8-26); Calcium 9.1 mg/dL (8.6-10.8); Carbon Dioxide 24 mEq/L (19-29); Chloride 105 mEq/L (98-109); Globulin 4.5 g/dL (2.4-3.5); Glucose 168 mg/dL (70-99); Osmolality,Calculated 293 (280-300); Potassium 4.4 mEq/L (3.5-4.5); Sodium 139 mEq/L (136-145); Total Protein 7.8 g/dL (6.0-8.3); eGFR For African Americans > 60 (> 60); eGFR For Non-African Americans 58 (> 60)
[2017-03-05 05:26] LABS: Albumin 3.3 g/dL (3.5-5.0); Albumin/Globulin Ratio 0.8 (1.1-2.2); Bilirubin,Direct 0.7 mg/dL (0.0-0.5); Bilirubin,Indirect 0.4 mg/dL (0.0-1.2); Bilirubin,Total 1.1 mg/dL (0.2-1.2); Globulin 4.4 g/dL (2.4-3.5); Total Protein 7.7 g/dL (6.0-8.3)
[2017-03-05 05:28] LABS: Bilirubin,Total 1.1 mg/dL (0.2-1.2)
--- NOTE | 2017-03-05 07:54 | General Surgery Progress Note ---
Date of Encounter: 03/05/17 Time of Encounter: 07:52 - Assessment and Plan (1) Biliary dyskinesia Current Visit: Yes Status: Acute Patient underwent a laparoscopic cholecystectomy yesterday where chronic cholecystitis was discovered. Noted elevated WBC with a white count of 19,000 today. We will likely recommend continued antibiotics due to the patient's cholecystitis and advance diet as tolerated. From a surgical standpoint the patient would be okay for discharge home once he is able to tolerate by mouth diet and no signs of inflammation or infection either later today or tomorrow. Once he is discharged I will make certain he has a follow-up to see me in the office in 2 weeks. Subjective Patient reports: other (patient states that pain has improved. No nausea or vomiting.) Objective Vital Signs - Last 8 Hours Temp Pulse Resp BP Pulse Ox 03/05/17 07:23 100.7 F H 88 16 149/70 92 03/05/17 04:09 18 94 Intake and Output 03/04/17 03/04/17 03/05/17 15:59 23:59 07:59 Intake Total 100 / 100 100 / 100 100 / 100 Output Total 845 / 845 Balance -745 / -745 100 / 100 100 / 100 Intake: IV Fluids 100 / 100 100 / 100 100 / 100 Mefoxin 1,000 MG In 100 / 100 100 / 100 Dextrose 5% (Minibag+) 100 ML 100 ML @ 200 mls/ hr IVPB Q8HR [facility] Rx#: [id number] Mefoxin 2,000 MG In 100 / 100 Dextrose 5% (Minibag+) 100 ML 100 ML @ 200 mls/ hr IVPB ONCE ONE Rx#: [id number] Output: Urine 825 / 825 Estimated Blood Loss 20 / 20 Other: Meal NPO # Voids 1 Blood Glucose* 220 211 183 - General physical appearance no distress - Abdomen Abdomen: Present: soft, tender (noted incisional tenderness to palpation.) - Labs 03/05/17 04:37 03/05/17 04:37 Diabetes panel 03/05/17 03/05/17 Range/Units 04:37 04:37 Sodium 139 (136-145) mEq/L Potassium 4.4 (3.5-4.5) mEq/L Chloride 105 (98-109) mEq/L Carbon Dioxide 24 (19-29) mEq/L BUN 16 (8-26) mg/dL Creatinine 1.23 (0.72-1.25) mg/dL Glucose 168 H (70-99) mg/dL Calcium 9.1 (8.6-10.8) mg/dL AST 85 H 82 H (5-34) Units/L ALT 115 H 114 H (0-55) Units/L Alkaline Phosphatase 67 67 (38-126) Units/L Albumin 3.3 L 3.3 L (3.5-5.0) g/dL Calcium panel 03/05/17 03/05/17 Range/Units 04:37 04:37 Calcium 9.1 (8.6-10.8) mg/dL Albumin 3.3 L 3.3 L (3.5-5.0) g/dL Pituitary panel 03/05/17 Range/Units 04:37 Sodium 139 (136-145) mEq/L Potassium 4.4 (3.5-4.5) mEq/L Chloride 105 (98-109) mEq/L Carbon Dioxide 24 (19-29) mEq/L BUN 16 (8-26) mg/dL Creatinine 1.23 (0.72-1.25) mg/dL Glucose 168 H (70-99) mg/dL Calcium 9.1 (8.6-10.8) mg/dL Adrenal panel 03/05/17 03/05/17 Range/Units 04:37 04:37 Sodium 139 (136-145) mEq/L Potassium 4.4 (3.5-4.5) mEq/L Chloride 105 (98-109) mEq/L Carbon Dioxide 24 (19-29) mEq/L BUN 16 (8-26) mg/dL Creatinine 1.23 (0.72-1.25) mg/dL Glucose 168 H (70-99) mg/dL Calcium 9.1 (8.6-10.8) mg/dL Total Bilirubin 1.1 D 1.1 (0.2-1.2) mg/dL AST 85 H 82 H (5-34) Units/L ALT 115 H 114 H (0-55) Units/L Alkaline Phosphatase 67 67 (38-126) Units/L Albumin 3.3 L 3.3 L (3.5-5.0) g/dL - VTE Documentation of Mechanical Device: Intermittent pneumatic compression device Consult Discharge Plan - Plan [facility] Care Provider[facility] -
--- NOTE | 2017-03-05 08:14 | Internal Med Progress Note ---
Date of Encounter: 03/05/17 Time of Encounter: 08:11 - Assessment and plan (1) Chronic cholecystitis with calculus Current Visit: Yes Status: Acute (2) Chest pain Current Visit: No Status: Acute Qualifiers: Chest pain type: unspecified Qualified Code(s): R07.9 - Chest pain, unspecified (3) CAD (coronary artery disease) Current Visit: Yes Status: Chronic Qualifiers: Coronary Disease-Associated Artery/Lesion type: [place] artery [place] vs. transplanted heart: [place] heart Associated angina: without angina Qualified Code(s): I25.10 - Atherosclerotic heart disease of [place] coronary artery without angina pectoris (4) Diabetes Current Visit: No Status: Acute Qualifiers: Diabetes mellitus type: type 2 Diabetes mellitus complication status: without complication Diabetes mellitus chcf insulin use: with adjunct faculty for medical terminology use Qualified Code(s): E11.9 - Type 2 diabetes mellitus without complications ; Z79.4 - superintendent terminal (current) use of insulin (5) A-fib Current Visit: Yes Status: Chronic Qualifiers: Atrial fibrillation type: chronic Qualified Code(s): I48.2 - Chronic atrial fibrillation (6) COPD (chronic obstructive pulmonary disease) Current Visit: No Status: Chronic Qualifiers: COPD type: emphysema Emphysema type: unspecified Qualified Code(s): J43.9 - Emphysema, unspecified (7) CKD (chronic kidney disease) stage 3, GFR 30-59 ml/min Current Visit: Yes Status: Acute (8) Carotid stenosis Current Visit: Yes Status: Chronic Qualifiers: Laterality: unspecified laterality Qualified Code(s): I65.29 - Occlusion and stenosis of unspecified carotid artery - Subjective Interval history: Mr. Haynes is a 71 year old male with past medical history of atrial fibrillation, CHF (last echo 04/02 showed EF 60-65% with mild left ventricular hypertrophy and mild left ventricle diastolic dysfunction), COPD, CKD ,coronary artery disease, diabetes mellitus type 2, pacemaker, and hypertension who was transferred to [place] from the [facility] due to concern for cholelithiasis. Patient transferred to [place] after spending roughly 1 week at the [facility]. A CT abdomen/pelvis performed at the [place] showed cholelithiasis, but also showed hypoattenuated region in one of his kidneys as well as 50% stenosis in his SMA. He also has a history of carotid endarterectomy and after a carotid ultrasound and CTA of his neck he was found to have 20% stenosis of his left carotid in unspecified stenosis of the right though there was mention of decreased blood flow.It was noted that cardio vascular surgery has been consulted on admission due to carotid stenosis as well as SMA 50% stenosis with hypoattenuated region and kidney [facility] 03/03 Patient was seen this morning. He is eating full light. His abdominal pain is much better now. Examination is essentially remained unremarkable General surgery has evaluated the patient and plan to proceed with cholecystectomy provided patient is medically cleared. His EKG and troponins are negative as well as stress test.. He also has underlying COPD however breathing is status is stable at this time. Cardiology has cleared the patient. 03/04 Asymptomatic, planned for surgery. CBC CMP reviewed. No white count and her renal function has normalized now with creatinine of only 1.24 as noted above stress test is negative. 03/05 Postop day 1. Patient was noted to have chronic cholecystitis during surgery. Patient has developed fever 100.7 with elevated white count. Surgery has recommended IV cefoxitin 1 g every 8 and watch him until his fever is gone. His AST and ALTs are also elevated. His renal function have normalized Will recheck CBC and CMP in the morning. I will change antibiotics to Cipro and Flagyl. and DC IV fluids. Upon discharge they might have to address incidental finding of hypoechoic area and his kidneys as well as 50% stenosis of SMA Event note: This afternoon nursing's staff called indicating that patient seems quite somnolent. It took them couple of people put him in the bed. Patient's family indicated that he has some psych issues and sometimes he intentionally does this think where he will not move. As I saw him and call him by his name. Did not respond but when I tried to open his eyes he deliberately forcefully kept Them closed. He moves all extremities to pain stimulus he seems to be breathing comfortably and hemodynamically he is a stable. His plantars are downward bilaterally. I have advised nursing to watch him closely if appear necessary we can go ahead and order CT head but for now nurses will watch him closely and do periodic neuro checks.. - Constitutional Vitals: Temp Pulse Resp BP Pulse Ox 100.7 F H 88 16 149/70 92 03/05/17 07:23 03/05/17 07:23 03/05/17 07:23 03/05/17 07:23 03/05/17 07:23 General appearance: Present: A&O X 3, morbidly obese, pleasant, no acute distress, answers questions appropriately - Head Head exam: Present: atraumatic, normocephalic - Eye Eye exam: Present: PERRL, conjuntiva pink, sclera anicteric Pupils: Present: PERRL - Neck Neck exam general surgery: Present: supple, trachea midline. Absent: lymphadenopathy - Respiratory Respiratory exam: Present: CTAB. Absent: accessory muscle use, rales, rhonchi, wheezes - Cardiovascular Cardiovascular exam: Present: RRR, +S1, +S2. Absent: diastolic murmur, gallop, rubs, systolic murmur - GI/Abdominal GI/Abdominal exam: Present: hypoactive bowel sounds, soft, tenderness, no peritoneal signs. Absent: distended - Extremities Exam Extremities exam: Present: warm, radial pulses palpable and symmetrical. Absent : calf tenderness, cyanotic, pedal edema - Neurological Exam Neurological exam: Present: CN II-XII intact, oriented X3, no focal deficits. Absent: pronater drift, facial droop, speech deficit - Skin Skin exam: Present: dry, intact Internal Medicine: Result - Labs CBC & Chem 7: 03/05/17 04:37 03/05/17 04:37 Labs: Short CBC 03/05/17 Range/Units 04:37 WBC 19.1 H D (4.3-11.1) K/mcL Hgb 13.3 (12.9-16.9) g/dL Hct 41.4 (37.5-50.1) % Plt Count 251 (140-400) K/mcL Neutrophils # 15.9 H (1.6-8.9) K/mcL BMP 03/05/17 04:37 Sodium 139 Potassium 4.4 Chloride 105 Carbon Dioxide 24 BUN 16 Creatinine 1.23 Glucose 168 H Calcium 9.1 Liver Function 03/05/17 03/05/17 Range/Units 04:37 04:37 Total Bilirubin 1.1 D 1.1 (0.2-1.2) mg/dL Direct Bilirubin 0.7 H (0.0-0.5) mg/dL AST 85 H 82 H (5-34) Units/L ALT 115 H 114 H (0-55) Units/L Alkaline Phosphatase 67 67 (38-126) Units/L Albumin 3.3 L 3.3 L (3.5-5.0) g/dL - ABG Interpretation ABG results: PT/INR, D-dimer PT 12.1 Seconds (9.4-12.1) 03/02/17 06:26 - VTE Documentation of Mechanical Device: Intermittent pneumatic compression device Consult Discharge Plan - Plan [facility]errals: [facility] [Primary Care Provider] -
[2017-03-05] MEDS: Insulin LISPRO 300 UNITS/3 ML VIAL SQ SCH ×4 (09:00→21:54)
[2017-03-05] MEDS: Baclofen 10 MG TABLET PO SCH ×3 (09:01→22:07)
[2017-03-05] MEDS: Pantoprazole 40 MG VIAL IVP SCH (09:01)
[2017-03-05] MEDS: Aspirin Enteric Coated 81 MG Tablet PO SCH (09:02)
[2017-03-05] MEDS: *HR* OxyCODONE/APAP 10/325 TABLET PO PRN (09:02)
[2017-03-05] MEDS: Metoprolol XL (24 HR) Succ 50 MG TAB.ER.24H PO SCH (09:02)
[2017-03-05] MEDS: Finasteride 5 MG TABLET PO SCH (09:02)
[2017-03-05] MEDS: Furosemide 40 MG TABLET PO SCH (09:02)
[2017-03-05] MEDS: Gabapentin 300 MG CAPSULE PO SCH ×3 (09:03→22:08)
[2017-03-05] MEDS: Tiotropium 18 MCG inhalation IH SCH (10:52)
[2017-03-05] MEDS: *HR* Heparin 5,000 UNIT/ML VIAL SQ SCH (18:29)
[2017-03-05] MEDS: Levofloxacin 500 MG/100 ML 500 MG/100 ML BAG IVPB SCH (18:31)
--- NOTE | 2017-03-05 21:23 | Electrocardiograph Report ---
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
[2017-03-05] MEDS: Melatonin 3 MG TABLET PO SCH (21:55)
[2017-03-05] MEDS: traZODone 50 MG TABLET PO SCH (21:55)
[2017-03-06] MEDS: MetroNIDAZOLE 500 MG/100 ML 500 MG/100 ML BAG IVPB SCH ×3 (00:17→18:12)
[2017-03-06] MEDS: *HR* Heparin 5,000 UNIT/ML VIAL SQ SCH ×2 (06:09→18:22)
[2017-03-06] MEDS: Tiotropium 18 MCG inhalation IH SCH (08:04)
[2017-03-06] MEDS: Metoprolol XL (24 HR) Succ 50 MG TAB.ER.24H PO SCH (08:26)
[2017-03-06] MEDS: Gabapentin 300 MG CAPSULE PO SCH ×3 (08:26→21:19)
[2017-03-06] MEDS: Aspirin Enteric Coated 81 MG Tablet PO SCH (08:27)
[2017-03-06] MEDS: Finasteride 5 MG TABLET PO SCH (08:27)
[2017-03-06] MEDS: Furosemide 40 MG TABLET PO SCH (08:27)
[2017-03-06] MEDS: Insulin LISPRO 300 UNITS/3 ML VIAL SQ SCH ×4 (08:28→21:21)
[2017-03-06] MEDS: Baclofen 10 MG TABLET PO SCH ×3 (08:28→21:20)
[2017-03-06] MEDS: Pantoprazole 40 MG VIAL IVP SCH (08:28)
[2017-03-06 09:07] LABS: Basophils % 0.2 %; Eosinophils % 0.3 %; Hematocrit 34.8 % (37.5-50.1); Immature Granulocytes % 0.3 % (0-4); Lymphocytes # 1.2 K/mcL (0.6-4.6); Lymphocytes % 10.2 %; Mean Corpuscular HGB Conc 31.6 g/dL (31.6-35.5); Mean Corpuscular Volume 85.5 fL (83.0-100.0); Mean Platelet Volume 11.3 fL (9.4-12.4); Monocytes # 1.3 K/mcL (0.0-1.3); Neutrophils # 9.4 K/mcL (1.6-8.9); Platelet Count 181 K/mcL (140-400); Red Blood Count 4.07 M/mcL (4.19-5.50); Red Cell Distribution Width 14.8 % (11.5-14.5)
[2017-03-06 09:33] LABS: Albumin 2.7 g/dL (3.5-5.0); Albumin/Globulin Ratio 0.7 (1.1-2.2); Bilirubin,Total 1.1 mg/dL (0.2-1.2); Calcium 8.8 mg/dL (8.6-10.8); Potassium 3.9 mEq/L (3.5-4.5); Total Protein 6.7 g/dL (6.0-8.3)
[2017-03-06 09:34] LABS: Bilirubin,Direct 0.7 mg/dL (0.0-0.5); Bilirubin,Indirect 0.4 mg/dL (0.0-1.2); Bilirubin,Total 1.1 mg/dL (0.2-1.2)
[2017-03-06] MEDS: cefOXitin 1,000 MG in D5% in Water (Mini-Bag+) 100 ML IVPB SCH ×3 (12:01→23:38)
--- NOTE | 2017-03-06 13:03 | General Surgery Progress Note ---
Date of Encounter: 03/06/17 Time of Encounter: 12:15 - Assessment and Plan (1) Biliary colic symptom Current Visit: Yes Status: Acute Postop day [address] Mandujano. -Continue supportive care and discomfort management -resume normal diet as tolerated -patient states he lives alone and is unable to care for himself. PT and OT eval and treat for d/c planning; -Recommend referral to social work for DC planning. -Okay to discharge from a surgical perspective. We will sign off at this time. Please re-consult if there are any needs. Thank you for allowing us to participate in his care. -Follow-up in the office 03/19/2017 at 4:[address] Mandujano -Continue p.o. ABX at d/c (Augmentin 875 mg BID w/meals) for 7 days -Continue percocet for discomfort -Colace for constipation while on narcotics. May hold for loose stool Subjective Patient reports: no new complaints, feels better, still having pain, pain is less, tolerating liquids well, voiding w/o difficulty, flatus, no bowel movement , afebrile Objective Vital Signs - Last 8 Hours Temp Pulse Resp BP Pulse Ox 03/06/17 11:37 99.0 F 80 18 137/72 96 03/06/17 08:06 16 94 03/06/17 07:17 99.3 F 94 15 139/68 93 Intake and Output 03/05/17 03/06/17 03/06/17 23:59 07:59 15:59 Intake Total 1000 / 1000 200 / 200 360 / 360 Output Total 185 / 185 Balance 1000 / 1000 15 15 360 / 360 Intake: IV Fluids 200 / 200 200 / 200 Levaquin Premix 500mg/ 100 / 100 100mL 500 mg In 100 ml @ 100 mls/hr IVPB Q24H [facility] Rx#:[id number] Flagyl Premix 500 MG/100 100 / 100 ML 500 mg In 100 ml @ 100 mls/hr IVPB Q8HR [facility] Rx# :[id number] Mefoxin 1,000 MG In 100 / 100 100 / 100 Dextrose 5% (Minibag+) 100 ML 100 ML @ 200 mls/ hr IVPB Q8HR [facility] Rx#: [id number] Oral 800 / 800 360 / 360 Output: Urine 185 / 185 Other: Meal Breakfast Percent of Meal Consumed 30% # Voids 1 Weight 133.447 kg Blood Glucose* 150 120 173 Patient Weight 03/06/17 23:59 Weight 133.447 kg - General physical appearance no distress, moderate pain, obese - Eyes normal ocular movement - ENT atraumatic, normocephalic - Neck Neck exam: no masses, no venous distension - Respiratory other (Decreased by basilar breath sounds anterior; O2 per nasal cannula noted) - Cardiovascular Cardiovascular exam: Present: distant heart sounds - Abdomen Abdomen: Present: bowel sounds present, soft, tender (Expected Postoperative tenderness) - Incision Incision: Present: clean and dry, intact - Integumentary no rash - Neurologic CN 2-12 grossly intact - Musculoskeletal normal posture - Psychiatric oriented to time, oriented to person, oriented to place, memory intact - Labs 03/06/17 08:19 03/06/17 08:19 Diabetes panel 03/06/17 Range/Units 08:19 Sodium 140 (136-145) mEq/L Potassium 3.9 (3.5-4.5) mEq/L Chloride 106 (98-109) mEq/L Carbon Dioxide 22 (19-29) mEq/L BUN 24 (8-26) mg/dL Creatinine 1.42 H (0.72-1.25) mg/dL Glucose 134 H (70-99) mg/dL Calcium 8.8 (8.6-10.8) mg/dL AST 74 H (5-34) Units/L ALT 160 H (0-55) Units/L Alkaline Phosphatase 63 (38-126) Units/L Albumin 2.7 L (3.5-5.0) g/dL Calcium panel 03/06/17 Range/Units 08:19 Calcium 8.8 (8.6-10.8) mg/dL Albumin 2.7 L (3.5-5.0) g/dL Pituitary panel 03/06/17 Range/Units 08:19 Sodium 140 (136-145) mEq/L Potassium 3.9 (3.5-4.5) mEq/L Chloride 106 (98-109) mEq/L Carbon Dioxide 22 (19-29) mEq/L BUN 24 (8-26) mg/dL Creatinine 1.42 H (0.72-1.25) mg/dL Glucose 134 H (70-99) mg/dL Calcium 8.8 (8.6-10.8) mg/dL Adrenal panel 03/06/17 03/06/17 Range/Units 08:19 08:19 Sodium 140 (136-145) mEq/L Potassium 3.9 (3.5-4.5) mEq/L Chloride 106 (98-109) mEq/L Carbon Dioxide 22 (19-29) mEq/L BUN 24 (8-26) mg/dL Creatinine 1.42 H (0.72-1.25) mg/dL Glucose 134 H (70-99) mg/dL Calcium 8.8 (8.6-10.8) mg/dL Total Bilirubin 1.1 1.1 (0.2-1.2) mg/dL AST 74 H (5-34) Units/L ALT 160 H (0-55) Units/L Alkaline Phosphatase 63 (38-126) Units/L Albumin 2.7 L (3.5-5.0) g/dL - VTE Documentation of Mechanical Device: Intermittent pneumatic compression device Consult Discharge Plan - Plan Additional Instructions: -No lifting, pulling, pushing, greater than 15 pounds for 2 weeks. -Okay to climb stairs. -May resume driving when you have been off narcotics for 24 hours and you are safe to react in the car. -You may shower beginning today. Wash the incisions daily with soap and water and pat dry. -No swimming, tub bath, or soaking for 2 weeks. -Return to the office for follow-up as directed. -Report any increase in discomfort or any new fevers greater than 101.5 degrees and signs of infection such as redness, swelling, or drainage from the incisions. -Take pain medication as directed. May break in half if too strong. Colace while on narcotics for constipation may hold for loose stool. [facility]errals: [facility]Primary Care Provider[facility] - Jeremy Mandujano MD [Partnered Physician] - 03/19/17 4:20 pm Prescriptions: OxyCODONE/APAP 10/325 [Percocet 10/325 MG] 1 each PO Q4HR PRN #42 tablet PRN Reason: Analgesia Amoxicillin/Clavulanate [Augmentin] 875 mg PO BIDWM #14 tablet Docusate Sodium [Colace] 100 mg PO BID #60 capsule
--- NOTE | 2017-03-06 17:21 | Internal Med Progress Note ---
Date of Encounter: 03/06/17 Time of Encounter: 15:20 - Assessment and plan (1) Chronic cholecystitis with calculus Status: Acute Assessment and plan: Surgery on board. Status post laparoscopic cholecystectomy postoperative day 2. Patient tolerates low-fat diet. Was noted to have postoperative fever, has been started on IV ciprofloxacin and Flagyl. Patient is currently cleared by surgery for discharge with oral antibiotics and pain medications. Patient is noted to have mild renal dysfunction with increased serum creatinine. Will give IV hydration and monitor renal function. Pain control with when necessary oral Percocet. (2) DM2 (diabetes mellitus, type 2) Status: Chronic Assessment and plan: Accu-Chek blood glucose monitoring with sliding scale insulin. Diabetic diet. Qualifiers: Diabetes mellitus complication status: with unspecified complications Diabetes mellitus senior living insulin use: without computer terminal operator use Qualified Code( s): E11.8 - Type 2 diabetes mellitus with unspecified complications (3) CAD (coronary artery disease) Status: Chronic Qualifiers: Coronary Disease-Associated Artery/Lesion type: [place] artery [place] vs. transplanted heart: [place] heart Associated angina: without angina Qualified Code(s): I25.10 - Atherosclerotic heart disease of [place] coronary artery without angina pectoris (4) COPD (chronic obstructive pulmonary disease) Status: Chronic Assessment and plan: Not in acute exacerbation. Continue when necessary bronchodilators and supplemental oxygen. Qualifiers: COPD type: emphysema Emphysema type: unspecified Qualified Code(s): J43.9 - Emphysema, unspecified (5) A-fib Status: Chronic Assessment and plan: Continue rate control medications. Not noted to be on anticoagulation, recommend outpatient follow-up. Qualifiers: Atrial fibrillation type: paroxysmal Qualified Code(s): I48.0 - Paroxysmal atrial fibrillation (6) HTN (hypertension) Status: Chronic Qualifiers: Hypertension type: essential hypertension Qualified Code(s): I10 - Essential (primary) hypertension (7) Depression Status: Chronic Qualifiers: Depression Type: unspecified Qualified Code(s): F32.9 - Major depressive disorder, single episode, unspecified (8) KINSEY (obstructive sleep apnea) Status: Chronic - Subjective Interval history: Reports some abdominal pain, able to tolerate liquid diet. No fever, chills, nausea or vomiting. - Constitutional Vitals: Temp Pulse Resp BP Pulse Ox 99.4 F 83 17 137/69 95 03/06/17 15:14 03/06/17 15:14 03/06/17 15:14 03/06/17 15:14 03/06/17 15:14 General appearance: Present: A&O X 3, morbidly obese, answers questions appropriately - Respiratory Respiratory exam: Present: CTAB. Absent: accessory muscle use, rales, rhonchi, wheezes - Cardiovascular Cardiovascular exam: Present: RRR, +S1, +S2. Absent: diastolic murmur, gallop, rubs, systolic murmur - GI/Abdominal GI/Abdominal exam: Present: normal bowel sounds, soft (Mild tenderness in epigastrium and right upper quadrant. No guarding or rigidity), no peritoneal signs. Absent: distended, tenderness - Extremities Exam Extremities exam: Present: full ROM, pedal edema, warm, radial pulses palpable and symmetrical. Absent: calf tenderness, cyanotic - Neurological Exam Neurological exam: Present: CN II-XII intact, oriented X3, no focal deficits. Absent: pronater drift, facial droop, speech deficit - Skin Skin exam: Present: dry, intact Internal Medicine: Result - Labs CBC & Chem 7: 03/07/17 07:40 03/07/17 07:40 Labs: Short CBC 03/06/17 Range/Units 08:19 WBC 12.1 H (4.3-11.1) K/mcL Hgb 11.0 L D (12.9-16.9) g/dL Hct 34.8 L (37.5-50.1) % Plt Count 181 (140-400) K/mcL Neutrophils # 9.4 H (1.6-8.9) K/mcL BMP 03/06/17 08:19 Sodium 140 Potassium 3.9 Chloride 106 Carbon Dioxide 22 BUN 24 Creatinine 1.42 H Glucose 134 H Calcium 8.8 Liver Function 03/06/17 03/06/17 Range/Units 08:19 08:19 Total Bilirubin 1.1 1.1 (0.2-1.2) mg/dL Direct Bilirubin 0.7 H (0.0-0.5) mg/dL AST 74 H (5-34) Units/L ALT 160 H (0-55) Units/L Alkaline Phosphatase 63 (38-126) Units/L Albumin 2.7 L (3.5-5.0) g/dL - ABG Interpretation ABG results: PT/INR, D-dimer PT 12.1 Seconds (9.4-12.1) 03/02/17 06:26 - VTE Documentation of Mechanical Device: Intermittent pneumatic compression device Consult Discharge Plan - Plan Instructions: Laparoscopic Cholecystectomy (DC) Additional Instructions: -No lifting, pulling, pushing, greater than 15 pounds for 2 weeks. -Okay to climb stairs. -May resume driving when you have been off narcotics for 24 hours and you are safe to react in the car. -You may shower beginning today. Wash the incisions daily with soap and water and pat dry. -No swimming, tub bath, or soaking for 2 weeks. -Return to the office for follow-up as directed. -Report any increase in discomfort or any new fevers greater than 101.5 degrees and signs of infection such as redness, swelling, or drainage from the incisions. -Take pain medication as directed. May break in half if too strong. Colace while on narcotics for constipation may hold for loose stool. Referrals: Jeremy Mandujano MD [Partnered Physician] - 03/19/17 4:20 pm MA,PCP [Primary Care Provider] - 03/19/17 10:15 am Prescriptions: OxyCODONE/APAP 10/325 [Percocet 10/325 MG] 1 each PO Q4HR PRN #42 tablet PRN Reason: Analgesia Amoxicillin/Clavulanate [Augmentin] 875 mg PO BIDWM #14 tablet Docusate Sodium [Colace] 100 mg PO BID #60 capsule
[2017-03-06] MEDS: 0.9 % Sodium Chloride 1,000 ML IVC SCH (18:18)
[2017-03-06] MEDS: Levofloxacin 500 MG/100 ML 500 MG/100 ML BAG IVPB SCH (18:22)
[2017-03-06] MEDS: Melatonin 3 MG TABLET PO SCH (21:20)
[2017-03-06] MEDS: traZODone 50 MG TABLET PO SCH (21:20)
[2017-03-06] MEDS: *HR* OxyCODONE/APAP 10/325 TABLET PO PRN (21:20)
[2017-03-07] MEDS: MetroNIDAZOLE 500 MG/100 ML 500 MG/100 ML BAG IVPB SCH ×2 (00:24→12:41)
[2017-03-07] MEDS: *HR* Heparin 5,000 UNIT/ML VIAL SQ SCH (06:19)
[2017-03-07] MEDS: Tiotropium 18 MCG inhalation IH SCH (08:06)
[2017-03-07] MEDS: Insulin LISPRO 300 UNITS/3 ML VIAL SQ SCH ×2 (08:26→12:41)
[2017-03-07 08:29] LABS: Alanine Aminotransferase 112 Units/L (0-55); Albumin 2.6 g/dL (3.5-5.0); Albumin/Globulin Ratio 0.7 (1.1-2.2); Alkaline Phosphatase 60 Units/L (38-126); Aspartate Amino Transferase 51 Units/L (5-34); BUN/Creatinine Ratio 17 (6-26); Bilirubin,Total 0.8 mg/dL (0.2-1.2); Blood Urea Nitrogen 19 mg/dL (8-26); Calcium 8.8 mg/dL (8.6-10.8); Carbon Dioxide 23 mEq/L (19-29); Chloride 106 mEq/L (98-109); Globulin 3.9 g/dL (2.4-3.5); Glucose 135 mg/dL (70-99); Osmolality,Calculated 294 (280-300); Potassium 3.6 mEq/L (3.5-4.5); Sodium 140 mEq/L (136-145); Total Protein 6.5 g/dL (6.0-8.3); eGFR For African Americans > 60 (> 60); eGFR For Non-African Americans > 60 (> 60)
[2017-03-07 09:20] LABS: Basophils # 0.1 K/mcL (0.0-0.2); Basophils % 0.6 %; Eosinophils # 0.2 K/mcL (0.0-0.6); Eosinophils % 2.2 %; Hematocrit 33.5 % (37.5-50.1); Hemoglobin 10.3 g/dL (12.9-16.9); Immature Granulocytes % 0.8 % (0-4); Lymphocytes # 1.4 K/mcL (0.6-4.6); Lymphocytes % 15.7 %; Mean Corpuscular HGB Conc 30.7 g/dL (31.6-35.5); Mean Corpuscular Hemoglobin 26.2 pg (28.0-33.3); Mean Corpuscular Volume 85.2 fL (83.0-100.0); Mean Platelet Volume 11.1 fL (9.4-12.4); Monocytes # 0.7 K/mcL (0.0-1.3); Monocytes % 8.5 %; Neutrophils # 6.3 K/mcL (1.6-8.9); Platelet Count 184 K/mcL (140-400); Red Blood Count 3.93 M/mcL (4.19-5.50); Red Cell Distribution Width 14.5 % (11.5-14.5); Segmented Neutrophils % 72.2 %
[2017-03-07] MEDS: 0.9 % Sodium Chloride 1,000 ML IVC SCH (11:01)
[2017-03-07] MEDS: cefOXitin 1,000 MG in D5% in Water (Mini-Bag+) 100 ML IVPB SCH (11:02)
[2017-03-07] MEDS: Baclofen 10 MG TABLET PO SCH (11:03)
[2017-03-07] MEDS: Pantoprazole 40 MG VIAL IVP SCH (11:03)
[2017-03-07] MEDS: Aspirin Enteric Coated 81 MG Tablet PO SCH (11:03)
[2017-03-07] MEDS: Finasteride 5 MG TABLET PO SCH (11:03)
[2017-03-07] MEDS: Furosemide 40 MG TABLET PO SCH (11:04)
[2017-03-07] MEDS: Metoprolol XL (24 HR) Succ 50 MG TAB.ER.24H PO SCH (11:04)
[2017-03-07] MEDS: Gabapentin 300 MG CAPSULE PO SCH (11:05)
[2017-03-07 11:35] VITALS: BP 137/66
--- NOTE | 2017-03-07 13:38 | Discharge Summary ---
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 transplanted heart: viejas heart Associated angina: without angina Qualified Code(s): I25.10 - Atherosclerotic heart disease of viejas coronary artery without angina pectoris (4) COPD (chronic obstructive pulmonary disease) Priority: Secondary Status: Chronic Qualifiers: COPD type: emphysema Emphysema type: unspecified Qualified Code(s): J43.9 - Emphysema, unspecified (5) A-fib Priority: Secondary Status: Chronic Qualifiers: Atrial fibrillation type: paroxysmal Qualified Code(s): I48.0 - Paroxysmal atrial fibrillation (6) HTN (hypertension) Priority: Secondary Status: Chronic Qualifiers: Hypertension type: essential hypertension Qualified Code(s): I10 - Essential (primary) hypertension (7) GERD (gastroesophageal reflux disease) Priority: Secondary Status: Chronic Qualifiers: Esophagitis presence: without esophagitis Qualified Code(s): K21.9 - Gastro -esophageal reflux disease without esophagitis (8) Depression Priority: Secondary Status: Chronic Qualifiers: Depression Type: unspecified Qualified Code(s): F32.9 - Major depressive disorder, single episode, unspecified (9) Chronic diastolic CHF (congestive heart failure) Priority: Secondary Status: Chronic (10) KINSEY (obstructive sleep apnea) Priority: Secondary Status: Chronic (11) Morbid obesity Priority: Secondary Status: Chronic (12) Pacemaker Priority: Secondary Status: Chronic - Discharge Medications Prescriptions: OxyCODONE/APAP 10/325 [Percocet 10/325 MG] 1 each PO Q4HR PRN #42 tablet PRN Reason: Analgesia Amoxicillin/Clavulanate [Augmentin] 875 mg PO BIDWM #14 tablet Docusate Sodium [Colace] 100 mg PO BID #60 capsule Home Medications: Aspirin Enteric Coated [Aspirin EC] 81 mg PO DAILY 04/13/15 [History] Gabapentin [Neurontin] 600 mg PO TID 04/13/15 [History] Metformin HCl [Glucophage] 1,000 mg PO BID 04/13/15 [History] Oxygen 2 l NS AD 01/26/16 [History] Spironolactone [Aldactone] 25 mg PO DAILY 01/26/16 [History] Metoprolol Succinate 150 mg PO DAILY 12/12/16 [History] Acetaminophen [Tylenol] 650 mg PO TID PRN 03/01/17 [History] Albuterol Sulfate [Albuterol Inhaler] 2 puff IH Q6H PRN 03/01/17 [History] Atorvastatin [Lipitor] 10 mg PO HS 03/01/17 [History] Baclofen [Lioresal] 10 mg PO TID 03/01/17 [History] Dicyclomine [Bentyl] 10 mg PO QID 03/01/17 [History] Diphenoxylate/Atropine [Lomotil 2.5 mg/0.025 mg] 1 each PO TID PRN 03/01/17 [ History] Finasteride [Proscar] 5 mg PO DAILY 03/01/17 [History] Furosemide [Lasix] 40 mg PO DAILY 03/01/17 [History] Losartan Potassium [Cozaar] 100 mg PO DAILY 03/01/17 [History] Melatonin [Melatin] 3 mg PO HS 03/01/17 [History] Nitroglycerin [Nitrostat] 0.4 mg SL Q5M PRN 03/01/17 [History] Omeprazole [PriLOSEC] 20 mg PO DAILY 03/01/17 [History] Sennosides/Docusate Sodium [Senna Plus] 1 each PO BID 03/01/17 [History] Simethicone [Gas-X] 160 mg PO QID PRN 03/01/17 [History] Tamsulosin [Flomax] 0.4 mg PO DAILY 03/01/17 [History] Tiotropium [Spiriva] 18 mcg IH 0700 03/01/17 [History] traZODone [TraZODone] 25 mg PO HS 03/01/17 [History] Amoxicillin/Clavulanate [Augmentin] 875 mg PO BIDWM #14 tablet 03/06/17 [Rx] Docusate Sodium [Colace] 100 mg PO BID #60 capsule 03/06/17 [Rx] OxyCODONE/APAP 10/325 [Percocet 10/325 MG] 1 each PO Q4HR PRN #42 tablet [Rx] Allergies/Adverse Reactions: 3 Allergy/AdvReac Type Severity Reaction Status Date / Time lisinopril Allergy Hives Verified 12/12/16 07:23 tetanus immune globulin Allergy Rash Verified 12/12/16 07:23 Date of admission: 03/01/17 19:15 [facility] care physician[facility] Consults: 03/01/17 21:21 Consult to Surgery [CONS] Routine Consulting Provider: Surgery [facility] Reason for Consult: Concern for cholelithiasis/cholecystitis Call Completed: Yes 03/01/17 23:21 Consult to Vascular Surgery [CONS] Routine Consulting Provider: Vascular Surgery J[facility] Reason for Consult: Concern for carotid stenosis when patient might have to undergo cholecystectomy. Call Completed: No 03/02/17 12:32 Consult to Cardiology [CONS] Routine Comment: Consulting Provider: Cardiology Jenna Reason for Consult: chest pain, need presurgical clearance, hx of CAD. Active chest pain Time Notified: 12:34 Call Completed: No 03/06/17 12:35 Consult to Physical Therapy [CONS] Routine Comment: Evaluate, develop and implement POC Reason for Consult: Eval and treat for d/c planning. Pt lives alone and underwent recent lap cayetano. He is agreeable to rehab placement if necessary. OT [Consult to Occupational Therapy] [CONS] Routine Comment: Evaluate, develop and implement POC Reason for Consult: Eval and treat for d/c planning. Pt lives alone and underwent recent lap cayetano. He is agreeable to rehab placement if necessary. Discharging clinician: Maribeth Fontanez Anticipated date of discharge: 03/07/17 - Patient Status Disposition: Home Health Service Condition: Good Functional capacity at discharge: independent ambulation Overall status at discharge: patient is progressing back to baseline - Discharge Instructions Instructions: Laparoscopic Cholecystectomy (DC) Follow Up With: Jeremy Mandujano MD [Partnered Physician] - 03/19/17 4:20 pm [facility],PCP [Primary Care Provider] - 03/19/17 10:15 am Additional Instructions: -No lifting, pulling, pushing, greater than 15 pounds for 2 weeks. -Okay to climb stairs. -May resume driving when you have been off narcotics for 24 hours and you are safe to react in the car. -You may shower beginning today. Wash the incisions daily with soap and water and pat dry. -No swimming, tub bath, or soaking for 2 weeks. -Return to the office for follow-up as directed. -Report any increase in discomfort or any new fevers greater than 101.5 degrees and signs of infection such as redness, swelling, or drainage from the incisions. -Take pain medication as directed. May break in half if too strong. Colace while on narcotics for constipation may hold for loose stool. - Diet and Activity Activity: resume usual activities as tolerated, wear oxygen at all times Diet: diabetic diet, low fat, low cholesterol, low salt diet Hospital course: Mr. 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 Patient was evaluated by surgery at our hospital and noted to have chronic cholecystitis with biliary colic and subsequently underwent laparoscopic cholecystectomy. Patient was noted to have fever in the postoperative period and has been started on IV ciprofloxacin and Flagyl. His white blood cell count normalized and fever improved gradually. He is currently able to tolerate solid diet and is passing flatus. He is anxious to be discharged today and has been cleared by surgery for discharge with outpatient follow-up. He is being discharged on oral Augmentin along with pain medications per surgery. He is encouraged to follow up with his primary care provider at the [facility] for monitoring of carotid artery stenosis and superior mesenteric artery stenosis and he verbalized understanding. - Time Spent with Patient Total time spent providing and/or coordinating discharge services: Greater than 30 minutes (40 min) - Constitutional Vitals: Temp Pulse Resp BP Pulse Ox 99.5 F 77 18 137/66 93 03/07/17 11:32 03/07/17 11:32 03/07/17 11:32 03/07/17 11:32 03/07/17 11:32 General appearance: Present: A&O X 3, morbidly obese, no acute distress, answers questions appropriately - Cardiovascular Cardiovascular exam: Present: RRR, +S1, +S2. Absent: diastolic murmur, gallop, rubs, systolic murmur - VTE Documentation of Mechanical Device: Intermittent pneumatic compression device
--- NOTE | 2017-03-07 13:43 | Physician Discharge Referral ---
Home Health/Hosp Referral Info Transfer to: Home Health Attending Provider: Maribeth Fontanez Provider in Charge Post Discharge: PCP - Diagnosis (1) Chronic cholecystitis with calculus Priority: Primary Status: Acute (2) DM2 (diabetes mellitus, type 2) Priority: Secondary Status: Chronic (3) CAD (coronary artery disease) Priority: Secondary Status: Chronic (4) COPD (chronic obstructive pulmonary disease) Priority: Secondary Status: Chronic (5) A-fib Priority: Secondary Status: Chronic (6) HTN (hypertension) Priority: Secondary Status: Chronic (7) GERD (gastroesophageal reflux disease) Priority: Secondary Status: Chronic (8) Depression Priority: Secondary Status: Chronic (9) Chronic diastolic CHF (congestive heart failure) Priority: Secondary Status: Chronic (10) KINSEY (obstructive sleep apnea) Priority: Secondary Status: Chronic (11) Morbid obesity Priority: Secondary Status: Chronic (12) Pacemaker Priority: Secondary Status: Chronic - Respiratory Orders Oxygen / L per min (2L/min viA nc prn) Smoking Cessation: Smoking cessation has been advised. For more information, call the [place] [employer] Quit Line at 8-869-TRUZ-NOW. - Diet/Nutrition Diet/Nutrition Orders: No Added Salt (CATHERINE), Cardiac, No Concentrated Sweets ( diabetic) - Activity Activity Orders: Ambulate - Services Needed Following services are medically necessary services: Nursing, Home Health Aide - Transfer Medications Prescriptions: OxyCODONE/APAP 10/325 [Percocet 10/325 MG] 1 each PO Q4HR PRN #42 tablet PRN Reason: Analgesia Amoxicillin/Clavulanate [Augmentin] 875 mg PO BIDWM #14 tablet Docusate Sodium [Colace] 100 mg PO BID #60 capsule Home Medications: Aspirin Enteric Coated [Aspirin EC] 81 mg PO DAILY 04/13/15 [History] Gabapentin [Neurontin] 600 mg PO TID 04/13/15 [History] Metformin HCl [Glucophage] 1,000 mg PO BID 04/13/15 [History] Oxygen 2 l NS AD 01/26/16 [History] Spironolactone [Aldactone] 25 mg PO DAILY 01/26/16 [History] Metoprolol Succinate 150 mg PO DAILY 12/12/16 [History] Acetaminophen [Tylenol] 650 mg PO TID PRN 03/01/17 [History] Albuterol Sulfate [Albuterol Inhaler] 2 puff IH Q6H PRN 03/01/17 [History] Atorvastatin [Lipitor] 10 mg PO HS 03/01/17 [History] Baclofen [Lioresal] 10 mg PO TID 03/01/17 [History] Dicyclomine [Bentyl] 10 mg PO QID 03/01/17 [History] Diphenoxylate/Atropine [Lomotil 2.5 mg/0.025 mg] 1 each PO TID PRN 03/01/17 [ History] Finasteride [Proscar] 5 mg PO DAILY 03/01/17 [History] Furosemide [Lasix] 40 mg PO DAILY 03/01/17 [History] Losartan Potassium [Cozaar] 100 mg PO DAILY 03/01/17 [History] Melatonin [Melatin] 3 mg PO HS 03/01/17 [History] Nitroglycerin [Nitrostat] 0.4 mg SL Q5M PRN 03/01/17 [History] Omeprazole [PriLOSEC] 20 mg PO DAILY 03/01/17 [History] Sennosides/Docusate Sodium [Senna Plus] 1 each PO BID 03/01/17 [History] Simethicone [Gas-X] 160 mg PO QID PRN 03/01/17 [History] Tamsulosin [Flomax] 0.4 mg PO DAILY 03/01/17 [History] Tiotropium [Spiriva] 18 mcg IH 0700 03/01/17 [History] traZODone [TraZODone] 25 mg PO HS 03/01/17 [History] Amoxicillin/Clavulanate [Augmentin] 875 mg PO BIDWM #14 tablet 03/06/17 [Rx] Docusate Sodium [Colace] 100 mg PO BID #60 capsule 03/06/17 [Rx] OxyCODONE/APAP 10/325 [Percocet 10/325 MG] 1 each PO Q4HR PRN #42 tablet [Rx] Allergies/Adverse Reactions: 3 Allergy/AdvReac Type Severity Reaction Status Date / Time lisinopril Allergy Hives Verified 12/12/16 07:23 tetanus immune globulin Allergy Rash Verified 12/12/16 07:23 Certification: Further, I certify that my clinical findings support that this patient is homebound (i.e. absences from home require considerable and taxing effort and are for medical reasons or mosque services or infrequently or short duration when for other reasons) because: Homebound Reason: Leaving home requires considerable and taxing effort due to condition Attestation: My signature below is to certify that this patient is under my care and that I, or nurse practitioner, or a physician's press assistant and feeder working with me, has a face-to -face encounter with this patient.
== END 2017-03-07 16:00 | disposition home health service (06) | DRG 418 ==
LOC: 3BNU → SUATTDRO 19:15
PROVIDERS: ADMIT Internal Medicine; ATTEND Internal Medicine

== ENCOUNTER 2017-03-10 09:00 | Inpatient (IN) ==
[2017-03-10 10:01] LABS: Basophils % 0.2 %; Eosinophils % 0.6 %; Hematocrit 37.8 % (37.5-50.1); Hemoglobin 11.8 g/dL (12.9-16.9); Immature Granulocytes % 0.4 % (0-4); Immature Platelets 3.9 % (1.1-6.1); Lymphocytes % 4.4 %; Mean Corpuscular HGB Conc 31.2 g/dL (31.6-35.5); Mean Corpuscular Hemoglobin 26.2 pg (28.0-33.3); Mean Platelet Volume 9.8 fL (9.4-12.4); Monocytes % 5.3 %; Platelet Count 239 K/mcL (140-400); Segmented Neutrophils % 89.1 %
[2017-03-10 10:02] LABS: Eosinophils # 0.1 K/mcL (0.0-0.6); Lymphocytes # 0.5 K/mcL (0.6-4.6); Monocytes # 0.7 K/mcL (0.0-1.3)
[2017-03-10 10:16] LABS: Alanine Aminotransferase 44 Units/L (0-55); Albumin/Globulin Ratio 0.7 (1.1-2.2); Alkaline Phosphatase 66 Units/L (38-126); Aspartate Amino Transferase 17 Units/L (5-34); BUN/Creatinine Ratio 12 (6-26); Bilirubin,Direct 0.5 mg/dL (0.0-0.5); Bilirubin,Indirect 0.3 mg/dL (0.0-1.2); Bilirubin,Total 0.8 mg/dL (0.2-1.2); Blood Urea Nitrogen 13 mg/dL (8-26); Calcium 9.3 mg/dL (8.6-10.8); Carbon Dioxide 23 mEq/L (19-29); Chloride 102 mEq/L (98-109); Globulin 4.5 g/dL (2.4-3.5); Glucose 165 mg/dL (70-99); Lipase < 10 Units/L (8-78); Osmolality,Calculated 294 (280-300); Potassium 3.8 mEq/L (3.5-4.5); Sodium 140 mEq/L (136-145); Total Protein 7.5 g/dL (6.0-8.3); eGFR For African Americans > 60 (> 60); eGFR For Non-African Americans > 60 (> 60)
[2017-03-10] MEDS ORDERED: *HR* HYDROmorphone (PF) 1 MG/ML SYRINGE IVP ONE ×3 (10:17→14:02)
[2017-03-10] MEDS ORDERED: Ondansetron 4 MG/2 ML VIAL IVP ONE (10:18)
[2017-03-10 10:23] LABS: Bilirubin,Urine Negative (Negative); Blood,Urine Trace (Negative); Clarity,Urine Clear (Clear); Color,Urine Yellow (Yellow); Glucose,Urine (UA) Normal (Normal); Ketones,Urine Negative (Negative); Leukocyte Esterase,Urine Trace (Negative); Nitrite,Urine Negative (Negative); Protein,Urine Negative (Neg-Trace); Specific Gravity,Urine 1.014 (1.010-1.025); Urobilinogen,Urine Normal (Normal)
[2017-03-10 10:28] LABS: Bacteria,Urine None Seen per hpf (None-Few); Hyaline Casts,Urine None Seen per lpf (None-Few); RBC,Urine 0-3 per hpf (0-3); Squamous Epithelial Cell,Urine Few per lpf (None-Few)
--- NOTE | 2017-03-10 10:32 | Emergency Department Note ---
Disposition Clinical Impression: Bile leak Abdominal pain Qualifiers: Abdominal location: right upper quadrant Qualified Code(s): R10.11 - Right upper quadrant pain Disposition: Admitted As Inpatient Condition: Good Forms: ED Satisfaction Letter General Adult HPI - General Chief complaint: ED Chest Pain Stated complaint: Abdominal Pain/Chest Pain Time Seen by Provider: 03/10/17 09:12 Source: patient, EMS Mode of arrival: EMS Limitations: no limitations Nursing Notes Reviewed: Yes Vital Signs Reviewed: Yes - History of Present Illness HPI Narrative: 71-year-old male who reports that he had a laparoscopic cholecystectomy performed on the by Dr. Mandujano. He reports that everything has been improving since then he felt great until this morning he had relatively sudden onset of epigastric and right upper quadrant abdominal pain. He has had a little bit of nausea but no vomiting. His main complaint is abdominal pain. He denies having a fever or difficulty with urination or bowel movements. He denies any shortness of breath. He does have past medical history of A. fib, hypertension, CHF, COPD, CAD, diabetes Radiation: non-radiation Pain Severity: moderate Pain Scale: 8 Consistency: constant Improves with: nothing Worsens with: nothing Associated symptoms: Reports: denies other symptoms Treatments Prior to Arrival: none - Related Data Home Medications Medication Instructions Recorded Confirmed Aspirin Enteric Coated [Aspirin EC] 81 mg PO DAILY 04/13/15 03/01/17 Gabapentin [Neurontin] 600 mg PO TID 04/13/15 03/01/17 Metformin HCl [Glucophage] 1,000 mg PO BID 04/13/15 03/01/17 Oxygen 2 l NS AD 01/26/16 12/12/16 Spironolactone [Aldactone] 25 mg PO DAILY 01/26/16 03/01/17 Metoprolol Succinate 150 mg PO DAILY 12/12/16 03/01/17 Acetaminophen [Tylenol] 650 mg PO TID PRN 03/01/17 03/01/17 Albuterol Sulfate [Albuterol 2 puff IH Q6H PRN 03/01/17 03/01/17 Inhaler] Atorvastatin [Lipitor] 10 mg PO HS 03/01/17 03/01/17 Baclofen [Lioresal] 10 mg PO TID 03/01/17 03/01/17 Dicyclomine [Bentyl] 10 mg PO QID 03/01/17 03/01/17 Diphenoxylate/Atropine [Lomotil 1 each PO TID PRN 03/01/17 03/01/17 2.5 mg/0.025 mg] Finasteride [Proscar] 5 mg PO DAILY 03/01/17 03/01/17 Furosemide [Lasix] 40 mg PO DAILY 03/01/17 03/01/17 Losartan Potassium [Cozaar] 100 mg PO DAILY 03/01/17 03/01/17 Melatonin [Melatin] 3 mg PO HS 03/01/17 03/01/17 Nitroglycerin [Nitrostat] 0.4 mg SL Q5M PRN 03/01/17 03/01/17 Omeprazole [PriLOSEC] 20 mg PO DAILY 03/01/17 03/01/17 Sennosides/Docusate Sodium [Senna 1 each PO BID 03/01/17 03/01/17 Plus] Simethicone [Gas-X] 160 mg PO QID PRN 03/01/17 03/01/17 Tamsulosin [Flomax] 0.4 mg PO DAILY 03/01/17 03/01/17 Tiotropium [Spiriva] 18 mcg IH 0700 03/01/17 03/01/17 traZODone [TraZODone] 25 mg PO HS 03/01/17 03/01/17 Previous Rx's Medication Instructions Recorded Amoxicillin/Clavulanate [Augmentin] 875 mg PO BIDWM #14 tablet 03/06/17 Docusate Sodium [Colace] 100 mg PO BID #60 capsule 03/06/17 OxyCODONE/APAP 10/325 [Percocet 1 each PO Q4HR PRN #42 tablet 03/06/17 10/325 MG] Allergies Allergy/AdvReac Type Severity Reaction Status Date / Time lisinopril Allergy Hives Verified 12/12/16 07:23 tetanus immune globulin Allergy Rash Verified 12/12/16 07:23 All systems ED: reviewed and negative except as stated. Constitutional: Denies: fever ENT ED: Denies: throat pain Cardiovascular: Denies: chest pain Respiratory: Denies: cough Gastrointestinal: Reports: abdominal pain Musculoskeletal: Denies: neck pain Integumentary: Denies: rash Neurological: Denies: headache Endocrine: Denies: fatigue Past Medical History - Past Medical History Medical history: Reports: atrial fibrillation, CHF, COPD, coronary artery disease, diabetes, GERD, hyperlipidemia, hypertension, other Surgical history: Reports: appendectomy, carotid endarterectomy, pacemaker/AICD , other (green light PVP with Dr. Marques 3 weeks ago) Psychiatric history: Reports: depression, PTSD, other - Social History Smoking Status: Former smoker Smokeless Tobacco Status: No Alcohol use: Reports: occasionally Drug use: Reports: none Physical Exam - General Limitations: no limitations General appearance: alert - Head Head exam: atraumatic - Eye Eye exam: Present: normal appearance, PERRL - ENT ENT exam: normal exam, normal oropharynx - Neck Neck exam: Present: normal inspection - Chest Chest inspection: Present: normal inspection - Respiratory Respiratory exam: Present: normal lung sounds bilaterally. Absent: respiratory distress - Cardiovascular Cardiovascular exam: Present: regular rate, normal rhythm - Abdominal Exam Abdominal exam: Present: soft, tenderness (Right upper quadrant tenderness on palpation. No distention or guarding. No diffuse tenderness on exam.), other ( Incisions are healing well without discharge or surrounding erythema) - Extremities Exam Extremities exam: Present: normal inspection - Neurological Exam Neurological exam: Present: alert, oriented X3 - Skin Skin exam: Present: warm, dry Course Course Narrative: He is having abdominal pain after a laparoscopic cholecystectomy. I will go ahead and get a CT scan of abdomen and pelvis with IV and oral contrast. Lab work is otherwise unremarkable and vital signs are stable. He is on O2 2L at home. Spoke with Dr Capellan due to an abnormal CT scan which was concerning for a bile leak. He recommended a hepatobiliary scan and a call back with the results. Hepatobiliary scan shows signs consistent of a biliary leak. I called and spoke with Dr. Capellan who requested that I admit the patient to his service. The patient is not hypoxic and I do not believe that he has pneumonia as is on the differential of his abdomen CT scan. I will not start antibiotics at this point. Vital Signs Temperature 98.7 F 03/10/17 09:07 Pulse Rate 76 03/10/17 09:07 Respiratory Rate 18 03/10/17 09:07 Blood Pressure 187/72 03/10/17 09:07 O2 Sat by Pulse Oximetry 79 03/10/17 09:07 Temperature 98.7 F 03/10/17 09:07 Pulse Rate 92 03/10/17 14:43 Respiratory Rate 18 03/10/17 14:43 Blood Pressure 196/98 03/10/17 14:43 O2 Sat by Pulse Oximetry 93 03/10/17 14:43 Oxygen Delivery Oxygen Delivery Nasal Cannula Medical Decision Making - Medical Records Medical records reviewed: Yes I reviewed the patient's medical records. - Lab Data Lab results reviewed: Yes I reviewed the patient's lab results. Result diagrams: 03/10/17 09:54 03/10/17 09:54 Lab Results 03/10/17 03/10/17 03/10/17 Range/Units 09:54 09:54 09:54 WBC 12.3 H (4.3-11.1) K/mcL RBC 4.50 (4.19-5.50) M/mcL Hgb 11.8 L D (12.9-16.9) g/dL Hct 37.8 (37.5-50.1) % MCV 84.0 (83.0-100.0) fL MCH 26.2 L (28.0-33.3) pg MCHC 31.2 L (31.6-35.5) g/dL RDW 14.0 (11.5-14.5) % Plt Count 239 (140-400) K/mcL MPV 9.8 (9.4-12.4) fL Immature Gran % 0.4 (0-4) % Seg Neutrophils % 89.1 % Lymphocytes % 4.4 % Monocytes % 5.3 % Eosinophils % 0.6 % Basophils % 0.2 % Neutrophils # 11.0 H (1.6-8.9) K/mcL Lymphocytes # 0.5 L (0.6-4.6) K/mcL Monocytes # 0.7 (0.0-1.3) K/mcL Eosinophils # 0.1 (0.0-0.6) K/mcL Basophils # 0.0 (0.0-0.2) K/mcL Immature Plt Fraction 3.9 (1.1-6.1) % PT (9.4-12.1) Seconds INR APTT (26.0-36.0) Seconds Sodium 140 (136-145) mEq/L Potassium 3.8 (3.5-4.5) mEq/L Chloride 102 (98-109) mEq/L Carbon Dioxide 23 (19-29) mEq/L BUN 13 (8-26) mg/dL Creatinine 1.08 (0.72-1.25) mg/dL Est GFR ( Amer) > 60 (> 60) Est GFR (Non-Af Amer) > 60 (> 60) BUN/Creatinine Ratio 12 (6-26) Glucose 165 H (70-99) mg/dL Calculated Osmolality 294 (280-300) Lactic Acid 1.3 (0.5-2.2) mmol/L Calcium 9.3 (8.6-10.8) mg/dL Total Bilirubin 0.8 (0.2-1.2) mg/dL Direct Bilirubin 0.5 (0.0-0.5) mg/dL Indirect Bilirubin 0.3 (0.0-1.2) mg/dL AST 17 (5-34) Units/L ALT 44 (0-55) Units/L Alkaline Phosphatase 66 (38-126) Units/L Troponin I (0-0.03) ng/mL Serum Total Protein 7.5 (6.0-8.3) g/dL Albumin 3.0 L (3.5-5.0) g/dL Globulin 4.5 H (2.4-3.5) g/dL Albumin/Globulin Ratio 0.7 L (1.1-2.2) Lipase < 10 (8-78) Units/L Urine Color (Yellow) Urine Clarity (Clear) Urine pH (5.0-8.0) pH Units Ur Specific [place] (1.010-1.025) Urine Protein (Neg-Trace) mg/dL Urine Glucose (UA) (Normal) mg/dL Urine Ketones (Negative) mg/dL Urine Blood (Negative) Urine Nitrite (Negative) Urine Bilirubin (Negative) Urine Urobilinogen (Normal) mg/dL Ur Leukocyte Esterase (Negative) Urine Microscopic RBC (0-3) per hpf Urine Microscopic WBC (0-3) per hpf Ur Squamous Epith Cells (None-Few) per lpf Urine Bacteria (None-Few) per hpf Hyaline Casts (None-Few) per lpf Ur Culture Indicated? (NO) 03/10/17 03/10/17 03/10/17 Range/Units 09:54 09:54 10:12 WBC (4.3-11.1) K/mcL RBC (4.19-5.50) M/mcL Hgb (12.9-16.9) g/dL Hct (37.5-50.1) % MCV (83.0-100.0) fL MCH (28.0-33.3) pg MCHC (31.6-35.5) g/dL RDW (11.5-14.5) % Plt Count (140-400) K/mcL MPV (9.4-12.4) fL Immature Gran % (0-4) % Seg Neutrophils % % Lymphocytes % % Monocytes % % Eosinophils % % Basophils % % Neutrophils # (1.6-8.9) K/mcL Lymphocytes # (0.6-4.6) K/mcL Monocytes # (0.0-1.3) K/mcL Eosinophils # (0.0-0.6) K/mcL Basophils # (0.0-0.2) K/mcL Immature Plt Fraction (1.1-6.1) % PT 12.8 H (9.4-12.1) Seconds INR 1.2 APTT 27.8 (26.0-36.0) Seconds Sodium (136-145) mEq/L Potassium (3.5-4.5) mEq/L Chloride (98-109) mEq/L Carbon Dioxide (19-29) mEq/L BUN (8-26) mg/dL Creatinine (0.72-1.25) mg/dL Est GFR ( Amer) (> 60) Est GFR (Non-Af Amer) (> 60) BUN/Creatinine Ratio (6-26) Glucose (70-99) mg/dL Calculated Osmolality (280-300) Lactic Acid (0.5-2.2) mmol/L Calcium (8.6-10.8) mg/dL Total Bilirubin (0.2-1.2) mg/dL Direct Bilirubin (0.0-0.5) mg/dL Indirect Bilirubin (0.0-1.2) mg/dL AST (5-34) Units/L ALT (0-55) Units/L Alkaline Phosphatase (38-126) Units/L Troponin I 0.03 (0-0.03) ng/mL Serum Total Protein (6.0-8.3) g/dL Albumin (3.5-5.0) g/dL Globulin (2.4-3.5) g/dL Albumin/Globulin Ratio (1.1-2.2) Lipase (8-78) Units/L Urine Color Yellow (Yellow) Urine Clarity Clear (Clear) Urine pH 6.0 (5.0-8.0) pH Units Ur Specific [place] 1.014 (1.010-1.025) Urine Protein Negative (Neg-Trace) mg/dL Urine Glucose (UA) Normal (Normal) mg/dL Urine Ketones Negative (Negative) mg/dL Urine Blood Trace H (Negative) Urine Nitrite Negative (Negative) Urine Bilirubin Negative (Negative) Urine Urobilinogen Normal (Normal) mg/dL Ur Leukocyte Esterase Trace H (Negative) Urine Microscopic RBC 0-3 (0-3) per hpf Urine Microscopic WBC 5-15 H (0-3) per hpf Ur Squamous Epith Cells Few (None-Few) per lpf Urine Bacteria None Seen (None-Few) per hpf Hyaline Casts None Seen (None-Few) per lpf Ur Culture Indicated? YES A (NO) - Radiology Data Radiology results reviewed: Yes I reviewed the patient's radiology results. - EKG Data EKG #1 EKG attestation: Yes I reviewed and interpreted this EKG. EKG shows normal: sinus rhythm Rate: normal Rhythm: NSR When compared to previous EKG there are: no significant changes Interpretation: no acute changes Attestation Statement - Attestation Attestation: I examined this patient and my medical decision-making was reviewed with the Resident Physician, Dr. Bowen. I agree with the documented findings, disposition and treatment plan as described except to the extent set forth below. Patient is a 71-year-old white male who is status post cholecystectomy by Dr. Mandujano on 03/04. Patient states he has been doing quite well at home until today when he began having sudden onset of epigastric and right upper quadrant pain that quickly worsened causing nausea but no vomiting. Patient states pain radiates into his back and up into the right chest wall. Patient is exquisitely tender throughout his entire abdomen and appears uncomfortable but nontoxic. Patient denies any chest pain heaviness or pressure sensation, no shortness of breath, no cough, no vomiting and no bowel changes. I agree with patient's physical exam findings as documented. Patient patient with labs and CT abdomen and pelvis. CT shows findings concerning for a bile leak as to the possible cause of this patient's pain. Spoke with Dr. Capellan who is on-call for Dr. Mandujano today and he requested that we get a [employer] hepatobiliary scan to confirm the leak. We sent the patient for this imaging study and it did confirm a bile leak. We did call Dr. Capellan back in regards to findings of the tests, patient remains hemodynamically stable at this time. He will be admitted to Dr. Capellan's service for surgical intervention for bile leak.
[2017-03-10 11:02] LABS: INR 1.2; Prothrombin Time 12.8 Seconds (9.4-12.1)
[2017-03-10 11:05] LABS: Activated Partial Thrombo Time 27.8 Seconds (26.0-36.0)
[2017-03-10] MEDS ORDERED: *HR* HYDROmorphone 2 MG/ML SYRINGE IVP ONE (11:46)
[2017-03-10] MEDS ORDERED: *HR* FentaNYL (PF) 100 MCG/2 ML VIAL IVP ONE (16:30)
--- NOTE | 2017-03-10 17:48 | General Surg History&Physical ---
Date of Encounter: 03/10/17 Time of Encounter: 17:40 Assessment and Plan (1) Bile leak Current Visit: Yes Status: Acute The assessment and plan as outlined above was discussed with the patient and/or family members who expressed understanding and agreement. All questions were answered. The patient has postoperative bile leak. He will be admitted to the hospital I will get serial liver function tests if his symptoms do not improve he may require interventional radiology drainage of the biloma and or ERCP to decrease the pressure in the common bile duct. I will also consult my hospitalist colleagues for medical management. History of Present Illness Chief complaint: Abdominal pain HPI: Mr. Haynes is a 71 year old male In very poor health. He has a personal history of COPD, obstructive sleep apnea chronic kidney disease, atrial fibrillation, congestive heart failure, coronary artery disease, who recently underwent laparoscopic cholecystectomy. I personally reviewed the operative note by Dr. Mandujano. Patient had a chronically inflamed and obstructed gallbladder with a difficult dissection for removal. The patient tolerated the procedure well and was discharged home. After 3 days, at 6 AM this morning he developed acute abdominal pain radiating from the right upper quadrant to the right shoulder. He presented to the emergency room for evaluation. He had pain but no nausea or vomiting. Liver function tests were normal popliteal count was normal CAT scan demonstrated fluid accumulation around the liver and in the gallbladder fossa. A follow-up hepatobiliary test demonstrated an active leak in the gallbladder fossa. There did appear to be flow into the small bowel indicating that the common bile duct is patent. He is admitted for pain control. If his pain does not subside he may require interventional radiology drainage of the biloma or ERCP to decrease the pressure in the common bile duct Past Med Surg Social Fam HX - Past Medical History Medical history: atrial fibrillation, CHF, COPD, coronary artery disease, diabetes, GERD, hyperlipidemia, hypertension, other (Obstructive sleep apnea) Psychiatric history: depression, PTSD, other - Past Surgical History Surgical History: appendectomy, carotid endarterectomy, cholecystectomy, pacemaker/AICD - Social History Smoking Status: Former smoker Smokeless Tobacco Status: No Alcohol use: occasionally Drug use: none - Family History Father Adopted: No Living Status: Hx Family Cardiac Disorders: Yes Hx Family Respiratory Disorders: Yes Hx Family Cancer: Yes Hx Family GI Disorders: No Hx Family Endocrine Disorder: No Hx Family Neuromuscular Disorders: No Hx Family Neurologic Disorders: No Hx Family HEENT Disorders: No Hx Family Autoimmune Disorders: No Medications and Allergies Aspirin Enteric Coated [Aspirin EC] 81 mg PO DAILY 04/13/15 [History] Gabapentin [Neurontin] 600 mg PO TID 04/13/15 [History] Metformin HCl [Glucophage] 1,000 mg PO BID 04/13/15 [History] Oxygen 2 l NS AD 01/26/16 [History] Spironolactone [Aldactone] 25 mg PO DAILY 01/26/16 [History] Metoprolol Succinate 150 mg PO DAILY 12/12/16 [History] Acetaminophen [Tylenol] 650 mg PO TID PRN 03/01/17 [History] Albuterol Sulfate [Albuterol Inhaler] 2 puff IH Q6H PRN 03/01/17 [History] Atorvastatin [Lipitor] 10 mg PO HS 03/01/17 [History] Baclofen [Lioresal] 10 mg PO TID 03/01/17 [History] Dicyclomine [Bentyl] 10 mg PO QID 03/01/17 [History] Diphenoxylate/Atropine [Lomotil 2.5 mg/0.025 mg] 1 each PO TID PRN 03/01/17 [ History] Finasteride [Proscar] 5 mg PO DAILY 03/01/17 [History] Furosemide [Lasix] 40 mg PO DAILY 03/01/17 [History] Losartan Potassium [Cozaar] 100 mg PO DAILY 03/01/17 [History] Melatonin [Melatin] 3 mg PO HS 03/01/17 [History] Nitroglycerin [Nitrostat] 0.4 mg SL Q5M PRN 03/01/17 [History] Omeprazole [PriLOSEC] 20 mg PO DAILY 03/01/17 [History] Sennosides/Docusate Sodium [Senna Plus] 1 each PO BID 03/01/17 [History] Simethicone [Gas-X] 160 mg PO QID PRN 03/01/17 [History] Tamsulosin [Flomax] 0.8 mg PO DAILY 03/01/17 [History] Tiotropium [Spiriva] 18 mcg IH 0700 03/01/17 [History] traZODone [TraZODone] 25 mg PO HS 03/01/17 [History] Docusate Sodium [Colace] 100 mg PO BID #60 capsule 03/06/17 [Rx] OxyCODONE/APAP 10/325 [Percocet 10/325 MG] 1 each PO Q4HR PRN #42 tablet [Rx] 3 Allergy/AdvReac Type Severity Reaction Status Date / Time lisinopril Allergy Hives Verified 12/12/16 07:23 tetanus immune globulin Allergy Rash Verified 12/12/16 07:23 Review of Systems All systems PM: A 10-system review of systems was performed and is negative for pertinent findings except as documented above in the HPI. General Surgery Exam Initial Vital Signs Temp Pulse Resp BP Pulse Ox 98.7 F 76 18 187/72 79 03/10/17 09:07 03/10/17 09:07 03/10/17 09:07 03/10/17 09:07 03/10/17 09:07 - General physical appearance moderate distress, moderate pain, chronically ill, obese - Neck no masses, no bruits, trachea midline, no lymphadectomy, no venous distension - Respiratory wheezing: bilateral (Decreased breath sounds bilaterally) - Cardiovascular Cardiovascular exam: Present: irregular rhythm, distant heart sounds, no murmurs /rubs/gallops - Abdomen Abdomen general surgery: Present: bowel sounds present, distended, tender Abdominal Tenderness: Present: RUQ - Integumentary Integumentary general surgery: Present: diaphoresis, other (Pale) - Neurologic Present: CN 2-12 grossly intact, normal coordination, normal sensation - Psychiatric Psychiatric general surgery: Present: appropriate, oriented to person, oriented to place, oriented to time, speech is normal, memory intact Results - Labs 03/10/17 09:54 03/10/17 09:54 Abnormal lab results WBC 12.3 K/mcL (4.3-11.1) H 03/10/17 09:54 Hgb 11.8 g/dL (12.9-16.9) L D 03/10/17 09:54 MCH 26.2 pg (28.0-33.3) L 03/10/17 09:54 MCHC 31.2 g/dL (31.6-35.5) L 03/10/17 09:54 Neutrophils # 11.0 K/mcL (1.6-8.9) H 03/10/17 09:54 Lymphocytes # 0.5 K/mcL (0.6-4.6) L 03/10/17 09:54 PT 12.8 Seconds (9.4-12.1) H 03/10/17 09:54 Glucose 165 mg/dL (70-99) H 03/10/17 09:54 Albumin 3.0 g/dL (3.5-5.0) L 03/10/17 09:54 Globulin 4.5 g/dL (2.4-3.5) H 03/10/17 09:54 Albumin/Globulin Ratio 0.7 (1.1-2.2) L 03/10/17 09:54 Urine Blood Trace (Negative) H 03/10/17 10:12 Ur Leukocyte Esterase Trace (Negative) H 03/10/17 10:12 Urine Microscopic WBC 5-15 per hpf (0-3) H 03/10/17 10:12 Ur Culture Indicated? YES (NO) A 03/10/17 10:12 All other labs normal. - Imaging CT scan - abdomen: image reviewed (I personally reviewed the CAT scan of the abdomen. He does have a smaller amount of fluid around the liver and in the gallbladder fossa. There is very little fluid in the subhepatic space. He has no fluid in the pelvis are diffusely in the abdomen. No other findings.) Additional studies: I personally reviewed the hepatobiliary scan. There appears to be flow in the small bowel but also flow consistent with leak into the gallbladder fossa spreading up onto the dome of the liver
[2017-03-10] MEDS ORDERED: Ondansetron 4 MG/2 ML VIAL IVP PRN ×2 (18:00→18:37)
[2017-03-10] MEDS ORDERED: *HR* HYDROmorphone (PF) 1 MG/ML SYRINGE IVP PRN (18:00)
[2017-03-10] MEDS ORDERED: 0.9 % Sodium Chloride 1,000 ML IVC SCH (18:00)
[2017-03-10] MEDS ORDERED: *HR* OxyCODONE/APAP 10/325 TABLET PO PRN (18:37)
[2017-03-10] MEDS ORDERED: Nitroglycerin 0.4 MG TAB.SUBL SL PRN (18:37)
[2017-03-10] MEDS ORDERED: NON-FORMULARY MEDICATION 1 EACH EACH (Oxygen [Oxygen] 2 L) NS SCH (18:37)
[2017-03-10] MEDS: Piperacillin/Tazobactam 3.375 GM in D5% in Water (Mini-Bag+) 100 ML IVPB SCH (20:02)
[2017-03-10] MEDS: 0.9 % Sodium Chloride 1,000 ML IVC SCH (20:03)
[2017-03-10] MEDS ORDERED: Dextrose Gel 15 GM PO PRN ×2 (20:37)
[2017-03-10] MEDS ORDERED: *HR* Dextrose 50 % in Water (Syg) 50 ML SYRINGE IVP PRN (20:37)
[2017-03-10] MEDS ORDERED: D5% in Water 1,000 ML IVC PRN (20:37)
--- NOTE | 2017-03-10 20:47 | Internal Medicine Consult Note ---
<Ko Velázquez T - Last Filed: 03/10/17 22:40> Date of Encounter: 03/10/17 Internal Medicine - CN: HPI - Data of Consult Requesting Physician: Hamilton Capellan MD - Consult Narrative History of present illness: Mr. Haynes is a 71 year old male Internal Medicine - CN: Meds Aspirin Enteric Coated [Aspirin EC] 81 mg PO DAILY 04/13/15 [History] Gabapentin [Neurontin] 600 mg PO TID 04/13/15 [History] Metformin HCl [Glucophage] 1,000 mg PO BID 04/13/15 [History] Oxygen 2 l NS AD 01/26/16 [History] Spironolactone [Aldactone] 25 mg PO DAILY 01/26/16 [History] Metoprolol Succinate 150 mg PO DAILY 12/12/16 [History] Acetaminophen [Tylenol] 650 mg PO TID PRN 03/01/17 [History] Albuterol Sulfate [Albuterol Inhaler] 2 puff IH Q6H PRN 03/01/17 [History] Atorvastatin [Lipitor] 10 mg PO HS 03/01/17 [History] Baclofen [Lioresal] 10 mg PO TID 03/01/17 [History] Dicyclomine [Bentyl] 10 mg PO QID 03/01/17 [History] Diphenoxylate/Atropine [Lomotil 2.5 mg/0.025 mg] 1 each PO TID PRN 03/01/17 [ History] Finasteride [Proscar] 5 mg PO DAILY 03/01/17 [History] Furosemide [Lasix] 40 mg PO DAILY 03/01/17 [History] Losartan Potassium [Cozaar] 100 mg PO DAILY 03/01/17 [History] Melatonin [Melatin] 3 mg PO HS 03/01/17 [History] Nitroglycerin [Nitrostat] 0.4 mg SL Q5M PRN 03/01/17 [History] Omeprazole [PriLOSEC] 20 mg PO DAILY 03/01/17 [History] Sennosides/Docusate Sodium [Senna Plus] 1 each PO BID 03/01/17 [History] Simethicone [Gas-X] 160 mg PO QID PRN 03/01/17 [History] Tamsulosin [Flomax] 0.8 mg PO DAILY 03/01/17 [History] Tiotropium [Spiriva] 18 mcg IH 0700 03/01/17 [History] traZODone [TraZODone] 25 mg PO HS 03/01/17 [History] Docusate Sodium [Colace] 100 mg PO BID #60 capsule 03/06/17 [Rx] OxyCODONE/APAP 10/325 [Percocet 10/325 MG] 1 each PO Q4HR PRN #42 tablet [Rx] 3 Allergy/AdvReac Type Severity Reaction Status Date / Time lisinopril Allergy Hives Verified 12/12/16 07:23 tetanus immune globulin Allergy Rash Verified 12/12/16 07:23 Internal Medicine - CN: Exam - Constitutional Vitals: Temp Pulse Resp BP Pulse Ox 100.1 F H 91 18 176/78 94 03/10/17 21:16 03/10/17 21:16 03/10/17 21:16 03/10/17 21:16 03/10/17 21:16 Internal Medicine - CN: Reslt - Labs CBC & Chem 7: 03/10/17 09:54 03/10/17 09:54 - ABG Interpretation ABG results: PT/INR, D-dimer PT 12.8 Seconds (9.4-12.1) H 03/10/17 09:54 Consult Discharge Plan - Plan [facility] Provider[facility] - - Attending Attestation Patient seen and examined independently by me on 03/10/17 Agree with GOLDY Monroy's documentation which aligns with our plan of care Discussed with patient <Barb Monroy - Last Filed: 03/10/17 23:18> Date of Encounter: 03/10/17 Time of Encounter: 20:44 - Assessment and Plan (1) Abdominal pain Current Visit: Yes Status: Acute Assessment and plan: Patient presented with severe abdominal pain radiating from RLQ to right shoulder starting this morning. Found to have bile leak after laproscopic cholecystectomy [address] Capellan of surgery has admitted patient. [place] and dilaudid PRN for pain. Zofran PRN for nausea. Narcan PRN for respiratory depression. Qualifiers: Abdominal location: right upper quadrant Qualified Code(s): R10.11 - Right upper quadrant pain (2) Bile leak Current Visit: Yes Status: Acute Assessment and plan: Patient presented with acute abdominal pain 3 days after laproscopic cholecystectomy. Imaging revealed Bile leak. Managed per Primary team. (3) DM2 (diabetes mellitus, type 2) Current Visit: Yes Status: Chronic Assessment and plan: Hold Metformin Patient on clear liquid diet with poor appetite. Will check blood sugars Q6hr. Sliding scale correction dose Q6hr hypoglycemic protocol. 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 Not in exacerbation. Continue home doses of medications. Titrate oxygen to maintain saturation. Qualifiers: COPD type: emphysema Emphysema type: unspecified Qualified Code(s): J43.9 - Emphysema, unspecified (5) A-fib Current Visit: Yes Status: Chronic Assessment and plan: Patient has history of paroxysmal afib, not on anticoagulation. He is in sinus rhythm today. Continue home dose of metoprolol. Qualifiers: Atrial fibrillation type: paroxysmal Qualified Code(s): I48.0 - Paroxysmal atrial fibrillation (6) HTN (hypertension) Current Visit: Yes Status: Chronic Assessment and plan: Patient hypertensive since arrival, likely secondary to acute pain. Add hydralazine 10mg IVP Q6hr PRN for SBP > 160 or DBP > 100. Continue home doses of metoprolol, losartan and aldactone. Qualifiers: Hypertension type: essential hypertension Qualified Code(s): I10 - Essential (primary) hypertension (7) Chronic diastolic CHF (congestive heart failure) Current Visit: Yes Status: Chronic Assessment and plan: Patient with chronic diastolic CHF. Patient appears euvolemic on exam. Will get daily weights and I/Os. Continue home dose of lasix. (8) Sleep apnea Current Visit: Yes Status: Acute Assessment and plan: Respiratory therapy consulted for CPAP Qualifiers: Sleep apnea type: unspecified type Qualified Code(s): G47.30 - Sleep apnea , unspecified (9) DVT prophylaxis Current Visit: Yes Status: Acute Assessment and plan: anti-embolic stockings heparin SQ TID Internal Medicine - CN: HPI - Data of Consult Patient: known to practice within the last 3 years Requesting Physician: Hamilton Capellan MD - Consult Narrative Reason for consult: 71M multiple medical issues admitted with bile leak s/p cholecystectomy History of present illness: Mr. Haynes is a 71 year old male with history of COPD, sleep apnea, CKD, paroxysmal afib, CHF, CAD, type 2 diabetes and recent laproscopic cholecystectomy 3 days ago presented to the ED today with rightsided abdominal pain radiating from right lower quadrant up to his right shoulder and neck. He reports the pain started this morning and was severe. He denies nausea, vomiting, abdominal pain or diarrhea. He denies fever, chills or sweats. Evaluation in the ED included CT of the abdomen which showed small amount of fluid around the liver and gall bladder fossa. Hepatobiliary scan showed flow consistent with leak into gallbladder fossa spreading to dome of liver. WBC count was mildly elevated at 12.3. Patient's pain was difficult to control and required fentanyl and dilaudid. Dr. Capellan of surgery was called and accepted patient for admission. He has consulted the hospitalist group for management of patient's medical comorbidities. On exam, patient alert and oriented in no distress. Lungs clear to auscultation. Heart with regular rate and rhythm. Abdomen mildly distended and exquisitely tender to palpation on the right side. Steristrips in place over laproscopic incision sites. Past Med Surg Social Fam HX - Past Medical History Medical history: atrial fibrillation, CHF, COPD, coronary artery disease, diabetes, GERD, hyperlipidemia, hypertension, other Psychiatric history: depression, PTSD, other - Past Surgical History Surgical History: appendectomy, carotid endarterectomy, cholecystectomy, pacemaker/AICD - Social History Smoking Status: Former smoker Smokeless Tobacco Status: No Alcohol use: occasionally Drug use: none - Family History Father Adopted: No Living Status: Hx Family Cardiac Disorders: Yes Hx Family Respiratory Disorders: Yes Hx Family Cancer: Yes Hx Family GI Disorders: No Hx Family Endocrine Disorder: No Hx Family Neuromuscular Disorders: No Hx Family Neurologic Disorders: No Hx Family HEENT Disorders: No Hx Family Autoimmune Disorders: No - Constitutional Constitutional: no chills, no fever(s), no night sweats - Cardiovascular Cardiovascular ROS IM: dyspnea on exertion, no chest pain, no diaphoresis, no dyspnea, no lightheadedness, no palpitations, no syncope - Respiratory Respiratory: dyspnea on exertion, no cough, no dyspnea, no wheezing, no excessive phlegm production - Gastrointestinal Gastrointestinal: abdominal pain, bloating, nausea, no diarrhea, no vomiting - Musculoskeletal Musculoskeletal ROS IM: no numbness, no tingling - Integumentary Integumentary IM: no new lesions, no rash, no unusual bruising Internal Medicine - CN: Exam - Constitutional Vitals: Temp Pulse Resp BP Pulse Ox 98.7 F 91 18 187/92 93 03/10/17 09:07 03/10/17 17:20 03/10/17 17:36 03/10/17 17:36 03/10/17 17:20 General appearance IM: Present: A&O X 3, pleasant, no acute distress - Head Head exam: Present: atraumatic, normocephalic - Eye Eye exam: Absent: PERRL, conjuntiva pink, sclera anicteric - Neck Neck exam general surgery: Present: full ROM, supple, trachea midline - Respiratory Respiratory exam: Present: CTAB. Absent: rales, rhonchi, wheezes - Cardiovascular Cardiovascular exam IM: Present: RRR. Absent: bradycardia, clicks, gallop, irregular rhythm, tachycardia - GI/Abdominal GI/Abdominal exam IM: Present: distended, firm, tenderness - Extremities Exam Extremities exam IM: Present: normal inspection, radial pulses palpable and symmetrical. Absent: calf tenderness, tenderness - Neurological Exam Neurological exam: Present: alert, CN II-XII intact, oriented X3, no focal deficits. Absent: facial droop, speech deficit - Skin Skin exam IM: Present: dry, intact Internal Medicine - CN: Reslt - Labs CBC & Chem 7: 03/10/17 09:54 03/10/17 09:54 Labs: All Lab Results (24 Hours) 03/10/17 03/10/17 03/10/17 Range/Units 09:54 09:54 09:54 WBC 12.3 H (4.3-11.1) K/mcL RBC 4.50 (4.19-5.50) M/mcL Hgb 11.8 L D (12.9-16.9) g/dL Hct 37.8 (37.5-50.1) % MCV 84.0 (83.0-100.0) fL MCH 26.2 L (28.0-33.3) pg MCHC 31.2 L (31.6-35.5) g/dL RDW 14.0 (11.5-14.5) % Plt Count 239 (140-400) K/mcL MPV 9.8 (9.4-12.4) fL Immature Gran % 0.4 (0-4) % Seg Neutrophils % 89.1 % Lymphocytes % 4.4 % Monocytes % 5.3 % Eosinophils % 0.6 % Basophils % 0.2 % Neutrophils # 11.0 H (1.6-8.9) K/mcL Lymphocytes # 0.5 L (0.6-4.6) K/mcL Monocytes # 0.7 (0.0-1.3) K/mcL Eosinophils # 0.1 (0.0-0.6) K/mcL Basophils # 0.0 (0.0-0.2) K/mcL Immature Plt Fraction 3.9 (1.1-6.1) % PT (9.4-12.1) Seconds INR APTT (26.0-36.0) Seconds Sodium 140 (136-145) mEq/L Potassium 3.8 (3.5-4.5) mEq/L Chloride 102 (98-109) mEq/L Carbon Dioxide 23 (19-29) mEq/L BUN 13 (8-26) mg/dL Creatinine 1.08 (0.72-1.25) mg/dL Est GFR ( Amer) > 60 (> 60) Est GFR (Non-Af Amer) > 60 (> 60) BUN/Creatinine Ratio 12 (6-26) Glucose 165 H (70-99) mg/dL Calculated Osmolality 294 (280-300) Lactic Acid 1.3 (0.5-2.2) mmol/L Calcium 9.3 (8.6-10.8) mg/dL Total Bilirubin 0.8 (0.2-1.2) mg/dL Direct Bilirubin 0.5 (0.0-0.5) mg/dL Indirect Bilirubin 0.3 (0.0-1.2) mg/dL AST 17 (5-34) Units/L ALT 44 (0-55) Units/L Alkaline Phosphatase 66 (38-126) Units/L Troponin I (0-0.03) ng/mL Serum Total Protein 7.5 (6.0-8.3) g/dL Albumin 3.0 L (3.5-5.0) g/dL Globulin 4.5 H (2.4-3.5) g/dL Albumin/Globulin Ratio 0.7 L (1.1-2.2) Lipase < 10 (8-78) Units/L Urine Color (Yellow) Urine Clarity (Clear) Urine pH (5.0-8.0) pH Units Ur Specific [place] (1.010-1.025) Urine Protein (Neg-Trace) mg/dL Urine Glucose (UA) (Normal) mg/dL Urine Ketones (Negative) mg/dL Urine Blood (Negative) Urine Nitrite (Negative) Urine Bilirubin (Negative) Urine Urobilinogen (Normal) mg/dL Ur Leukocyte Esterase (Negative) Urine Microscopic RBC (0-3) per hpf Urine Microscopic WBC (0-3) per hpf Ur Squamous Epith Cells (None-Few) per lpf Urine Bacteria (None-Few) per hpf Hyaline Casts (None-Few) per lpf Ur Culture Indicated? (NO) 03/10/17 03/10/17 03/10/17 Range/Units 09:54 09:54 10:12 WBC (4.3-11.1) K/mcL RBC (4.19-5.50) M/mcL Hgb (12.9-16.9) g/dL Hct (37.5-50.1) % MCV (83.0-100.0) fL MCH (28.0-33.3) pg MCHC (31.6-35.5) g/dL RDW (11.5-14.5) % Plt Count (140-400) K/mcL MPV (9.4-12.4) fL Immature Gran % (0-4) % Seg Neutrophils % % Lymphocytes % % Monocytes % % Eosinophils % % Basophils % % Neutrophils # (1.6-8.9) K/mcL Lymphocytes # (0.6-4.6) K/mcL Monocytes # (0.0-1.3) K/mcL Eosinophils # (0.0-0.6) K/mcL Basophils # (0.0-0.2) K/mcL Immature Plt Fraction (1.1-6.1) % PT 12.8 H (9.4-12.1) Seconds INR 1.2 APTT 27.8 (26.0-36.0) Seconds Sodium (136-145) mEq/L Potassium (3.5-4.5) mEq/L Chloride (98-109) mEq/L Carbon Dioxide (19-29) mEq/L BUN (8-26) mg/dL Creatinine (0.72-1.25) mg/dL Est GFR ( Amer) (> 60) Est GFR (Non-Af Amer) (> 60) BUN/Creatinine Ratio (6-26) Glucose (70-99) mg/dL Calculated Osmolality (280-300) Lactic Acid (0.5-2.2) mmol/L Calcium (8.6-10.8) mg/dL Total Bilirubin (0.2-1.2) mg/dL Direct Bilirubin (0.0-0.5) mg/dL Indirect Bilirubin (0.0-1.2) mg/dL AST (5-34) Units/L ALT (0-55) Units/L Alkaline Phosphatase (38-126) Units/L Troponin I 0.03 (0-0.03) ng/mL Serum Total Protein (6.0-8.3) g/dL Albumin (3.5-5.0) g/dL Globulin (2.4-3.5) g/dL Albumin/Globulin Ratio (1.1-2.2) Lipase (8-78) Units/L Urine Color Yellow (Yellow) Urine Clarity Clear (Clear) Urine pH 6.0 (5.0-8.0) pH Units Ur Specific [place] 1.014 (1.010-1.025) Urine Protein Negative (Neg-Trace) mg/dL Urine Glucose (UA) Normal (Normal) mg/dL Urine Ketones Negative (Negative) mg/dL Urine Blood Trace H (Negative) Urine Nitrite Negative (Negative) Urine Bilirubin Negative (Negative) Urine Urobilinogen Normal (Normal) mg/dL Ur Leukocyte Esterase Trace H (Negative) Urine Microscopic RBC 0-3 (0-3) per hpf Urine Microscopic WBC 5-15 H (0-3) per hpf Ur Squamous Epith Cells Few (None-Few) per lpf Urine Bacteria None Seen (None-Few) per hpf Hyaline Casts None Seen (None-Few) per lpf Ur Culture Indicated? YES A (NO) - ABG Interpretation ABG results: PT/INR, D-dimer PT 12.8 Seconds (9.4-12.1) H 03/10/17 09:54 - Diagnostic Studies CT scan - abdomen Additional comments: Abdomen/Pelvis CT 03/10/17 12:20 IMPRESSION: 1. Status post cholecystectomy. There is mild perihepatic fluid and gallbladder fossa free fluid suggesting a mild bile leak. Mild postsurgical biliary dilatation. 2. No evidence of bowel obstruction, ileus, or perforation. 3. Postsurgical ventral abdominal wall changes with no hematoma or abscess. 4. Trace right pleural effusion which may be sympathetic. Asymmetric patchy lung base consolidation more prominent on the right which may relate to atelectasis versus possible pneumonia. D/ / 03/10/2017 13:28:25 Tyler Betancur MD / elaine Interpreting Provider: Tyler Betancur MD Chest x-ray Additional comments: Chest X-Ray 03/10/17 13:48 IMPRESSION: Cardiomegaly. Possible trace right pleural effusion. D/ / Dov Murdock MD / Dov Murdock MD Interpreting Provider: Dov Murdock MD Other Images Additional comments: Bile Acid Absorption NM 03/10/17 13:42 IMPRESSION: Findings compatible with biliary leak status post cholecystectomy. D/ / Raz Wiggins MD / Raz Wiggins MD Interpreting Provider: Raz Wiggins MD
[2017-03-10] MEDS ORDERED: *HR* Metformin 500 MG TABLET PO SCH (21:00)
[2017-03-10] MEDS: traZODone 50 MG TABLET PO SCH (21:30)
[2017-03-10] MEDS: Baclofen 10 MG TABLET PO SCH (21:30)
[2017-03-10] MEDS: Gabapentin 300 MG CAPSULE PO SCH (21:31)
[2017-03-10] MEDS: *HR* Heparin 5,000 UNIT/ML VIAL SQ SCH (22:52)
[2017-03-10] MEDS: Insulin LISPRO 300 UNITS/3 ML VIAL SQ SCH (23:08)
[2017-03-11] MEDS ORDERED: Piperacillin/Tazobactam 3.375 GM in D5% in Water (Mini-Bag+) 100 ML IVPB SCH
[2017-03-11] MEDS: *HR* HYDROmorphone (PF) 1 MG/ML SYRINGE IVP PRN ×4 (02:00→08:57)
[2017-03-11] MEDS: Piperacillin/Tazobactam 3.375 GM in D5% in Water (Mini-Bag+) 100 ML IVPB SCH ×3 (03:09→18:45)
[2017-03-11] MEDS: *HR* Heparin 5,000 UNIT/ML VIAL SQ SCH ×3 (06:05→22:47)
[2017-03-11] MEDS: Tiotropium 18 MCG inhalation IH SCH (07:47)
[2017-03-11] MEDS: Gabapentin 300 MG CAPSULE PO SCH ×3 (08:54→20:41)
[2017-03-11] MEDS: Baclofen 10 MG TABLET PO SCH ×3 (08:54→20:41)
[2017-03-11] MEDS: Metoprolol XL (24 HR) Succ 50 MG TAB.ER.24H PO SCH (08:54)
[2017-03-11] MEDS: Furosemide 40 MG TABLET PO SCH (08:55)
[2017-03-11] MEDS: Aspirin Enteric Coated 81 MG Tablet PO SCH (08:55)
[2017-03-11] MEDS: Spironolactone 25 MG TABLET PO SCH (08:55)
[2017-03-11] MEDS: Finasteride 5 MG TABLET PO SCH (08:55)
[2017-03-11] MEDS: Insulin LISPRO 300 UNITS/3 ML VIAL SQ SCH ×4 (08:57→20:38)
[2017-03-11 12:18] LABS: Basophils % 0.2 %; Eosinophils % 0.1 %; Hematocrit 37.6 % (37.5-50.1); Hemoglobin 11.9 g/dL (12.9-16.9); Immature Platelets 4.3 % (1.1-6.1); Lymphocytes % 5.5 %; Mean Corpuscular HGB Conc 31.6 g/dL (31.6-35.5); Mean Corpuscular Hemoglobin 26.3 pg (28.0-33.3); Mean Platelet Volume 10.2 fL (9.4-12.4); Monocytes # 1.6 K/mcL (0.0-1.3); Monocytes % 8.9 %; Neutrophils # 14.9 K/mcL (1.6-8.9); Platelet Count 276 K/mcL (140-400); Red Blood Count 4.53 M/mcL (4.19-5.50); Red Cell Distribution Width 14.4 % (11.5-14.5); Segmented Neutrophils % 84.3 %
[2017-03-11 12:31] LABS: Alanine Aminotransferase 33 Units/L (0-55); Albumin 2.3 g/dL (3.5-5.0); Albumin/Globulin Ratio 0.5 (1.1-2.2); Alkaline Phosphatase 63 Units/L (38-126); Aspartate Amino Transferase 14 Units/L (5-34); BUN/Creatinine Ratio 13 (6-26); Blood Urea Nitrogen 13 mg/dL (8-26); Calcium 8.8 mg/dL (8.6-10.8); Carbon Dioxide 25 mEq/L (19-29); Chloride 103 mEq/L (98-109); Globulin 4.4 g/dL (2.4-3.5); Glucose 144 mg/dL (70-99); Osmolality,Calculated 291 (280-300); Sodium 139 mEq/L (136-145); Total Protein 6.7 g/dL (6.0-8.3); eGFR For African Americans > 60 (> 60); eGFR For Non-African Americans > 60 (> 60)
--- NOTE | 2017-03-11 12:59 | General Surgery Progress Note ---
Date of Encounter: 03/11/17 Time of Encounter: 12:50 - Assessment and Plan (1) Bile leak Current Visit: Yes Status: Acute The patient has a well-documented bile leak after laparoscopic cholecystectomy. He will require ERCP. Consult is placed. No one from gastroenterology is available for consultation today by telephone. This will need to call first thing in the morning. I did discuss the patient with interventional radiology. They favor ERCP over transperitoneal drainage. Subjective Narrative: The patient complains of pain 7 out of 10 in the abdomen. He is unable to get any pain relief from Dilaudid. His white blood cell count has risen to 17,500. He is currently on antibiotic. He has a well-demonstrated bile leak by hepatobiliary scan. To alleviate his pain, I considered having interventional radiology place a transperitoneal drain. They favor ERCP instead of transperitoneal drain. I agree that the patient will require ERCP. Consult was placed for gastroenterology but they will be unavailable until tomorrow very we will continue to treat the patient's pain with dilaudid and prepare him for ERCP tomorrow. Interventional radiology asked for a follow-up CAT scan today to see if the fluid accumulation has increased. Liver function tests remain normal. There is no coagulopathy. Objective Vital Signs - Last 8 Hours Temp Pulse Resp BP Pulse Ox 03/11/17 11:08 98.0 F 80 17 120/66 95 03/11/17 07:47 17 93 03/11/17 07:25 98.6 F 92 17 135/69 93 Intake and Output 03/10/17 03/11/17 03/11/17 23:59 07:59 15:59 Intake Total 0 / 0 200 / 200 Output Total 500 / 500 450 / 450 Balance -500 / -500 -250 / -250 Intake: IV Fluids 200 / 200 Zosyn 3.375 GM In Dextrose 5% ( 200 / 200 Minibag+) 100 ML 100 ML @ 25 mls/hr IVPB Q8H [facility] Rx#: [id number] Oral 0 / 0 0 / 0 Output: Catheter 500 / 500 450 / 450 Other: Meal Refused Weight 120.701 kg 120.701 kg Blood Glucose* 159 150 144 Patient Weight 03/11/17 23:59 Weight 120.701 kg - General physical appearance moderate pain - Respiratory normal expansion, normal respiratory effort, clear to percussion, clear to auscultation - Cardiovascular Cardiovascular exam: Present: RRR, no murmurs/rubs/gallops - Abdomen Abdomen: Present: bowel sounds present, distended, tender Abdominal Tenderness: diffusely - Incision Incision: Present: clean and dry - Neurologic normal coordination, normal sensation - Psychiatric oriented to time, oriented to person, oriented to place, speech is normal, memory intact - Labs 03/11/17 11:21 03/11/17 11:21 Diabetes panel 03/11/17 Range/Units 11:21 Sodium 139 (136-145) mEq/L Potassium 4.0 (3.5-4.5) mEq/L Chloride 103 (98-109) mEq/L Carbon Dioxide 25 (19-29) mEq/L BUN 13 (8-26) mg/dL Creatinine 0.99 (0.72-1.25) mg/dL Glucose 144 H (70-99) mg/dL Calcium 8.8 (8.6-10.8) mg/dL AST 14 (5-34) Units/L ALT 33 (0-55) Units/L Alkaline Phosphatase 63 (38-126) Units/L Albumin 2.3 L D (3.5-5.0) g/dL Calcium panel 03/11/17 Range/Units 11:21 Calcium 8.8 (8.6-10.8) mg/dL Albumin 2.3 L D (3.5-5.0) g/dL Pituitary panel 03/11/17 Range/Units 11:21 Sodium 139 (136-145) mEq/L Potassium 4.0 (3.5-4.5) mEq/L Chloride 103 (98-109) mEq/L Carbon Dioxide 25 (19-29) mEq/L BUN 13 (8-26) mg/dL Creatinine 0.99 (0.72-1.25) mg/dL Glucose 144 H (70-99) mg/dL Calcium 8.8 (8.6-10.8) mg/dL Adrenal panel 03/11/17 Range/Units 11:21 Sodium 139 (136-145) mEq/L Potassium 4.0 (3.5-4.5) mEq/L Chloride 103 (98-109) mEq/L Carbon Dioxide 25 (19-29) mEq/L BUN 13 (8-26) mg/dL Creatinine 0.99 (0.72-1.25) mg/dL Glucose 144 H (70-99) mg/dL Calcium 8.8 (8.6-10.8) mg/dL Total Bilirubin 1.0 (0.2-1.2) mg/dL AST 14 (5-34) Units/L ALT 33 (0-55) Units/L Alkaline Phosphatase 63 (38-126) Units/L Albumin 2.3 L D (3.5-5.0) g/dL Consult Discharge Plan - Plan [facility]errals: [facility] [Primary Care Provider] -
--- NOTE | 2017-03-11 16:18 | Internal Med Progress Note ---
Date of Encounter: 03/11/17 Time of Encounter: 13:00 - Assessment and plan (1) Abdominal pain Current Visit: Yes Status: Acute Assessment and plan: Due to biliary leak. Surgery managing. Plan for ERCP tomorrow. Qualifiers: Abdominal location: right upper quadrant Qualified Code(s): R10.11 - Right upper quadrant pain (2) Pneumonia Current Visit: Yes Status: Suspected Assessment and plan: Patient with right lower lobe consolidation per CT scan done today. Does have leukocytosis. Is currently on Zosyn. We will continue this antibiotic and add levofloxacin to cover atypical organisms. Patient was recently hospitalized here and was discharged on antibiotics. As such I doubt any cultures were positive. He does not have any fever. Leukocytosis could also be related to his biliary leak. Qualifiers: Pneumonia type: due to Pneumococcus Laterality: right Lung location: lower lobe of lung Qualified Code(s): J13 - Pneumonia due to Streptococcus pneumoniae (3) A-fib Current Visit: Yes Status: Chronic Assessment and plan: Rate controlled. Patient not on any anticoagulation but is on aspirin. Qualifiers: Atrial fibrillation type: paroxysmal Qualified Code(s): I48.0 - Paroxysmal atrial fibrillation (4) Bile leak Current Visit: Yes Status: Acute Assessment and plan: Management per surgery recommendations. Liver enzymes normal. Bilirubin is also normal (5) Chronic diastolic CHF (congestive heart failure) Current Visit: Yes Status: Chronic Assessment and plan: Continue Lasix (6) COPD (chronic obstructive pulmonary disease) Current Visit: Yes Status: Chronic Assessment and plan: Not in acute exacerbation. Continue bronchodilators as needed Qualifiers: COPD type: emphysema Emphysema type: unspecified Qualified Code(s): J43.9 - Emphysema, unspecified (7) DM2 (diabetes mellitus, type 2) Current Visit: Yes Status: Chronic Assessment and plan: Continue current sliding scale insulin. We will monitor blood sugars closely and adjust insulin regimen accordingly. Qualifiers: Diabetes mellitus complication status: with unspecified complications Diabetes mellitus correction insulin use: without rat exterminator use Qualified Code( s): E11.8 - Type 2 diabetes mellitus with unspecified complications (8) DVT prophylaxis Current Visit: Yes Status: Acute (9) Sleep apnea Current Visit: Yes Status: Chronic Assessment and plan: Use CPAP as needed at bedtime. Qualifiers: Sleep apnea type: unspecified type Qualified Code(s): G47.30 - Sleep apnea , unspecified - Subjective Interval history: Patient reports some right upper quadrant abdominal pain. Improving compared to yesterday. No fever or chills reported. No shortness of breath. He also complains of right-sided shoulder pain. Worsens with movement around the shoulder joint especially above his head. - Constitutional Vitals: Temp Pulse Resp BP Pulse Ox 98.2 F 76 18 91/56 95 03/11/17 15:53 03/11/17 15:53 03/11/17 15:53 03/11/17 15:53 03/11/17 15:53 General appearance: Present: mild distress, A&O X 3, pleasant, answers questions appropriately - Respiratory Respiratory exam: Present: CTAB. Absent: accessory muscle use, rales, rhonchi, wheezes - Cardiovascular Cardiovascular exam: Present: RRR, +S1, +S2. Absent: diastolic murmur, gallop, rubs, systolic murmur - GI/Abdominal GI/Abdominal exam: Present: normal bowel sounds, soft, tenderness (Right upper quadrant), no peritoneal signs. Absent: distended - Extremities Exam Extremities exam: Present: tenderness (Over the right acromioclavicular joint), warm, radial pulses palpable and symmetrical. Absent: calf tenderness, cyanotic , pedal edema - Neurological Exam Neurological exam: Present: alert, CN II-XII intact, oriented X3, no focal deficits. Absent: facial droop, speech deficit - Skin Skin exam: Present: dry, intact Internal Medicine: Result - Labs CBC & Chem 7: 03/11/17 11:21 03/11/17 11:21 Labs: Short CBC 03/10/17 03/11/17 03/11/17 Range/Units 22:46 07:24 10:59 WBC (4.3-11.1) K/mcL RBC (4.19-5.50) M/mcL Hgb (12.9-16.9) g/dL Hct (37.5-50.1) % MCV (83.0-100.0) fL MCH (28.0-33.3) pg MCHC (31.6-35.5) g/dL RDW (11.5-14.5) % Plt Count (140-400) K/mcL MPV (9.4-12.4) fL Immature Gran % (0-4) % Seg Neutrophils % % Lymphocytes % % Monocytes % % Eosinophils % % Basophils % % Neutrophils # (1.6-8.9) K/mcL Lymphocytes # (0.6-4.6) K/mcL Monocytes # (0.0-1.3) K/mcL Eosinophils # (0.0-0.6) K/mcL Basophils # (0.0-0.2) K/mcL Immature Plt Fraction (1.1-6.1) % Sodium (136-145) mEq/L Potassium (3.5-4.5) mEq/L Chloride (98-109) mEq/L Carbon Dioxide (19-29) mEq/L BUN (8-26) mg/dL Creatinine (0.72-1.25) mg/dL Est GFR ( Amer) (> 60) Est GFR (Non-Af Amer) (> 60) BUN/Creatinine Ratio (6-26) Glucose (70-99) mg/dL POC Glucose 159 H 150 H 144 H (58-89) Calculated Osmolality (280-300) Calcium (8.6-10.8) mg/dL Total Bilirubin (0.2-1.2) mg/dL AST (5-34) Units/L ALT (0-55) Units/L Alkaline Phosphatase (38-126) Units/L Serum Total Protein (6.0-8.3) g/dL Albumin (3.5-5.0) g/dL Globulin (2.4-3.5) g/dL Albumin/Globulin Ratio (1.1-2.2) 03/11/17 03/11/17 Range/Units 11:21 11:21 WBC 17.6 H (4.3-11.1) K/mcL RBC 4.53 (4.19-5.50) M/mcL Hgb 11.9 L (12.9-16.9) g/dL Hct 37.6 (37.5-50.1) % MCV 83.0 (83.0-100.0) fL MCH 26.3 L (28.0-33.3) pg MCHC 31.6 (31.6-35.5) g/dL RDW 14.4 (11.5-14.5) % Plt Count 276 (140-400) K/mcL MPV 10.2 (9.4-12.4) fL Immature Gran % 1.0 (0-4) % Seg Neutrophils % 84.3 % Lymphocytes % 5.5 % Monocytes % 8.9 % Eosinophils % 0.1 % Basophils % 0.2 % Neutrophils # 14.9 H (1.6-8.9) K/mcL Lymphocytes # 1.0 (0.6-4.6) K/mcL Monocytes # 1.6 H (0.0-1.3) K/mcL Eosinophils # 0.0 (0.0-0.6) K/mcL Basophils # 0.0 (0.0-0.2) K/mcL Immature Plt Fraction 4.3 (1.1-6.1) % Sodium 139 (136-145) mEq/L Potassium 4.0 (3.5-4.5) mEq/L Chloride 103 (98-109) mEq/L Carbon Dioxide 25 (19-29) mEq/L BUN 13 (8-26) mg/dL Creatinine 0.99 (0.72-1.25) mg/dL Est GFR ( Amer) > 60 (> 60) Est GFR (Non-Af Amer) > 60 (> 60) BUN/Creatinine Ratio 13 (6-26) Glucose 144 H (70-99) mg/dL POC Glucose (58-89) Calculated Osmolality 291 (280-300) Calcium 8.8 (8.6-10.8) mg/dL Total Bilirubin 1.0 (0.2-1.2) mg/dL AST 14 (5-34) Units/L ALT 33 (0-55) Units/L Alkaline Phosphatase 63 (38-126) Units/L Serum Total Protein 6.7 (6.0-8.3) g/dL Albumin 2.3 L D (3.5-5.0) g/dL Globulin 4.4 H (2.4-3.5) g/dL Albumin/Globulin Ratio 0.5 L (1.1-2.2) BMP 03/11/17 11:21 Sodium 139 Potassium 4.0 Chloride 103 Carbon Dioxide 25 BUN 13 Creatinine 0.99 Glucose 144 H Calcium 8.8 Liver Function 03/11/17 Range/Units 11:21 Total Bilirubin 1.0 (0.2-1.2) mg/dL AST 14 (5-34) Units/L ALT 33 (0-55) Units/L Alkaline Phosphatase 63 (38-126) Units/L Albumin 2.3 L D (3.5-5.0) g/dL - ABG Interpretation ABG results: PT/INR, D-dimer PT 12.8 Seconds (9.4-12.1) H 03/10/17 09:54 - Impressions Impressions Chest CT 03/11/17 00:00 IMPRESSION: There is increased perihepatic fluid. There is trace fluid tracking along the right pericolic gutter. There is mild mass effect upon the liver suggesting fluid is of relatively higher viscosity than water and consistent with the history. D/ / Delfino Newman MD / Delfino Newman MD Interpreting Provider: Delfino Newman MD Abdomen/Pelvis CT 03/11/17 12:24 IMPRESSION: There is increased perihepatic fluid. There is trace fluid tracking along the right pericolic gutter. There is mild mass effect upon the liver suggesting fluid is of relatively higher viscosity than water and consistent with the history. D/ / Delfino Newman MD / Delfino Newman MD Interpreting Provider: Delfino Newman MD Consult Discharge Plan - Plan [facility]errals: [facility] [Primary Care Provider] -
[2017-03-11] MEDS: 0.9 % Sodium Chloride 1,000 ML IVC SCH (16:42)
[2017-03-11] MEDS: Levofloxacin 750 MG/150 ML 750 MG/150 ML BAG IVPB SCH (16:43)
[2017-03-11 17:29] LABS: ABG Base Excess 6.3 mEq/L (-2.0 to 3.0); ABG HCO3 31 mEq/L (21-27); ABG Oxygen Saturation 93 % (95-98); ABG PCO2 42 mmHg (35-45); ABG PH 7.47 pH Units (7.32-7.45); ABG PO2 61 mmHg (85-104); ABG TCO2 32 mEq/L (20-26)
[2017-03-11 17:30] LABS: Blood Gas FiO2 32 %; Blood Gas Modality NC
[2017-03-11] MEDS: traZODone 50 MG TABLET PO SCH (20:41)
[2017-03-12] MEDS: Piperacillin/Tazobactam 3.375 GM in D5% in Water (Mini-Bag+) 100 ML IVPB SCH ×3 (03:44→20:45)
[2017-03-12 04:47] LABS: Basophils % 0.3 %; Eosinophils # 0.2 K/mcL (0.0-0.6); Eosinophils % 1.2 %; Hematocrit 33.1 % (37.5-50.1); Hemoglobin 10.4 g/dL (12.9-16.9); Immature Granulocytes % 1.2 % (0-4); Lymphocytes # 1.5 K/mcL (0.6-4.6); Lymphocytes % 10.6 %; Mean Corpuscular HGB Conc 31.4 g/dL (31.6-35.5); Mean Corpuscular Hemoglobin 26.7 pg (28.0-33.3); Mean Corpuscular Volume 84.9 fL (83.0-100.0); Mean Platelet Volume 10.5 fL (9.4-12.4); Monocytes # 1.4 K/mcL (0.0-1.3); Monocytes % 10.2 %; Neutrophils # 10.4 K/mcL (1.6-8.9); Platelet Count 258 K/mcL (140-400); Red Cell Distribution Width 14.4 % (11.5-14.5); Segmented Neutrophils % 76.5 %
[2017-03-12] MEDS: *HR* Heparin 5,000 UNIT/ML VIAL SQ SCH ×3 (05:51→20:48)
[2017-03-12] MEDS: Insulin LISPRO 300 UNITS/3 ML VIAL SQ SCH ×4 (08:19→20:51)
[2017-03-12] MEDS: Baclofen 10 MG TABLET PO SCH (08:21)
[2017-03-12] MEDS: Gabapentin 300 MG CAPSULE PO SCH (08:21)
[2017-03-12] MEDS: Finasteride 5 MG TABLET PO SCH (08:21)
[2017-03-12] MEDS: Levofloxacin 750 MG/150 ML 750 MG/150 ML BAG IVPB SCH (08:22)
[2017-03-12] MEDS: Furosemide 40 MG TABLET PO SCH (08:22)
[2017-03-12] MEDS: Spironolactone 25 MG TABLET PO SCH (08:22)
[2017-03-12] MEDS: Aspirin Enteric Coated 81 MG Tablet PO SCH (08:22)
[2017-03-12] MEDS: Metoprolol XL (24 HR) Succ 50 MG TAB.ER.24H PO SCH (08:22)
--- NOTE | 2017-03-12 08:49 | Electrocardiograph Report ---
[place] [id number] Test Date: 2017-03-10 Pat Name: Delfino Haynes Department: 103 Room: 3A41 Gender: M Hand Assembler: GEOVANNA : 1945 Requested By: Alison Schuster Order Number: [id number] Reading MD: Karin Mendes Measurements Intervals [place] Rate: 79 P: 36 [place]: 154 QRS: -24 QRSD: 117 T: 18 QT: 380 QTc: 415 Interpretive Statements SINUS RHYTHM POSSIBLE RIGHT VENTRICULAR CONDUCTION DELAY Electronically Signed On 03-11-2017 17:56:33 EDT by Karin Mendes
--- NOTE | 2017-03-12 11:36 | General Surgery Progress Note ---
<AveryCatina Dori - Last Filed: 03/12/17 11:34> Date of Encounter: 03/12/17 Time of Encounter: 11:35 - Assessment and Plan (1) Bile leak Current Visit: Yes Status: Acute patient has a well-documented bile leak after laparoscopic cholecystectomy. He will require ERCP. Consult is placed to Dr. Valles who will evaluate patient today. Keep NPO for expected ERCP IVF Discomfort management PT/OT eval and treat for d/c planning (pt has home health nursing and aides, 7 days per week). (2) Morbid obesity Current Visit: No Status: Chronic (3) Generalized weakness Current Visit: Yes Status: Acute See above Subjective Patient reports: no new complaints, feels better, still having pain, pain is less, voiding w/o difficulty, flatus, no bowel movement, afebrile Objective Vital Signs - Last 8 Hours Temp Pulse Resp BP Pulse Ox 03/12/17 11:26 99.1 F 73 14 106/63 96 03/12/17 06:27 98.6 F 72 16 146/71 94 03/12/17 04:16 99.1 F 70 17 146/67 94 Intake and Output 03/11/17 03/12/17 03/12/17 23:59 07:59 15:59 Intake Total 1350 / 1350 0 / 0 100 / 100 Output Total 200 / 200 150 / 150 Balance 1150 / 1150 -150 / -150 100 / 100 Intake: IV Fluids 1350 / 1350 100 / 100 0.9 % Sodium Chloride 1,000 ML 1000 / 1000 @ 50 mls/hr IVC .Q20H [facility] Rx#: [id number] Levaquin Premix 750mg/150 mL 150 / 150 750 mg In 150 ml @ 100 mls/hr IVPB DAILY [facility] Rx#:[id number] Zosyn 3.375 GM In Dextrose 5% ( 200 / 200 100 / 100 Minibag+) 100 ML 100 ML @ 25 mls/hr IVPB Q8H [facility] Rx#: [id number] Oral 0 / 0 0 / 0 0 / 0 Output: Catheter 200 / 200 150 / 150 Other: Meal NPO Percent of Meal Consumed 0% Blood Glucose* 128 135 - General physical appearance well nourished, no distress, moderate pain, other (sitting in chair at bedside) - Eyes normal ocular movement - ENT atraumatic, normocephalic - Neck Neck exam: trachea midline - Respiratory normal expansion, normal respiratory effort, clear to auscultation - Cardiovascular Cardiovascular exam: Present: RRR, distant heart sounds - Abdomen Abdomen: Present: bowel sounds present, soft, tender (Expected post-operative) Hernia: none - Incision Incision: Present: clean and dry (small amount of ecchymosis inferior to the umbilicus), intact - Integumentary no rash - Musculoskeletal normal gait, normal posture - Psychiatric oriented to time, oriented to person, oriented to place, memory intact - Labs 03/12/17 03:54 03/11/17 11:21 Diabetes panel 03/11/17 Range/Units 11:21 Sodium 139 (136-145) mEq/L Potassium 4.0 (3.5-4.5) mEq/L Chloride 103 (98-109) mEq/L Carbon Dioxide 25 (19-29) mEq/L BUN 13 (8-26) mg/dL Creatinine 0.99 (0.72-1.25) mg/dL Glucose 144 H (70-99) mg/dL Calcium 8.8 (8.6-10.8) mg/dL AST 14 (5-34) Units/L ALT 33 (0-55) Units/L Alkaline Phosphatase 63 (38-126) Units/L Albumin 2.3 L D (3.5-5.0) g/dL Calcium panel 03/11/17 Range/Units 11:21 Calcium 8.8 (8.6-10.8) mg/dL Albumin 2.3 L D (3.5-5.0) g/dL Pituitary panel 03/11/17 Range/Units 11:21 Sodium 139 (136-145) mEq/L Potassium 4.0 (3.5-4.5) mEq/L Chloride 103 (98-109) mEq/L Carbon Dioxide 25 (19-29) mEq/L BUN 13 (8-26) mg/dL Creatinine 0.99 (0.72-1.25) mg/dL Glucose 144 H (70-99) mg/dL Calcium 8.8 (8.6-10.8) mg/dL Adrenal panel 03/11/17 Range/Units 11:21 Sodium 139 (136-145) mEq/L Potassium 4.0 (3.5-4.5) mEq/L Chloride 103 (98-109) mEq/L Carbon Dioxide 25 (19-29) mEq/L BUN 13 (8-26) mg/dL Creatinine 0.99 (0.72-1.25) mg/dL Glucose 144 H (70-99) mg/dL Calcium 8.8 (8.6-10.8) mg/dL Total Bilirubin 1.0 (0.2-1.2) mg/dL AST 14 (5-34) Units/L ALT 33 (0-55) Units/L Alkaline Phosphatase 63 (38-126) Units/L Albumin 2.3 L D (3.5-5.0) g/dL - VTE Documentation of Mechanical Device: Intermittent pneumatic compression device Consult Discharge Plan - Plan [facility]errals: [facility] [Primary Care Provider] - <Jeremy Mandujano - Last Filed: 03/12/17 13:24> Date of Encounter: 03/12/17 Objective Vital Signs - Last 8 Hours Temp Pulse Resp BP Pulse Ox 03/12/17 13:08 74 16 112/53 95 03/12/17 12:55 73 14 106/63 96 03/12/17 11:26 99.1 F 73 14 106/63 96 03/12/17 06:27 98.6 F 72 16 146/71 94 Intake and Output 03/11/17 03/12/17 03/12/17 23:59 07:59 15:59 Intake Total 1350 / 1350 0 / 0 100 / 100 Output Total 200 / 200 150 / 150 Balance 1150 / 1150 -150 / -150 100 / 100 Intake: IV Fluids 1350 / 1350 100 / 100 0.9 % Sodium Chloride 1,000 ML 1000 / 1000 @ 50 mls/hr IVC .Q20H [facility] Rx#: [id number] Levaquin Premix 750mg/150 mL 150 / 150 750 mg In 150 ml @ 100 mls/hr IVPB DAILY [facility] Rx#:[id number] Zosyn 3.375 GM In Dextrose 5% ( 200 / 200 100 / 100 Minibag+) 100 ML 100 ML @ 25 mls/hr IVPB Q8H [facility] Rx#: [id number] Oral 0 / 0 0 / 0 0 / 0 Output: Catheter 200 / 200 150 / 150 Other: Meal NPO Percent of Meal Consumed 0% Blood Glucose* 128 150 - Labs 03/12/17 03:54 03/11/17 11:21 - Attending Attestation For this encounter, I have reviewed the RESPIRATORY THERAPY DIRECTOR or PA documentation, treatment plan, and medical decision making; and I have had face to face time with this patient. I reviewed the assessment and evaluation and agree with the recommendations above. CT scan reviewed by me which shows fluid collection above the level of the liver. He has had a HIDA scan which demonstrates evidence of a leak. Patient is for an ERCP with stent placement today. We will request for interventional radiology consultation for drainage catheter placement to drain the left upper quadrant fluid collection. This will likely be done tomorrow
[2017-03-12] MEDS: Tiotropium 18 MCG inhalation IH SCH (11:58)
--- NOTE | 2017-03-12 12:53 | Anesthesia Evaluation PreOp ---
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 History: Denies Any Significant HX Other Medical History: Renal, Diabetes Type II Anesthesia History: No Prior Anesthetic Complications, Past Anesthesia Alcohol Use: occasionally Drug use: none Medications and Allergies Aspirin Enteric Coated [Aspirin EC] 81 mg PO DAILY 04/13/15 [History] Gabapentin [Neurontin] 600 mg PO TID 04/13/15 [History] Metformin HCl [Glucophage] 1,000 mg PO BID 04/13/15 [History] Oxygen 2 l NS AD 01/26/16 [History] Spironolactone [Aldactone] 25 mg PO DAILY 01/26/16 [History] Metoprolol Succinate 150 mg PO DAILY 12/12/16 [History] Acetaminophen [Tylenol] 650 mg PO TID PRN 03/01/17 [History] Albuterol Sulfate [Albuterol Inhaler] 2 puff IH Q6H PRN 03/01/17 [History] Atorvastatin [Lipitor] 10 mg PO HS 03/01/17 [History] Baclofen [Lioresal] 10 mg PO TID 03/01/17 [History] Dicyclomine [Bentyl] 10 mg PO QID 03/01/17 [History] Diphenoxylate/Atropine [Lomotil 2.5 mg/0.025 mg] 1 each PO TID PRN 03/01/17 [ History] Finasteride [Proscar] 5 mg PO DAILY 03/01/17 [History] Furosemide [Lasix] 40 mg PO DAILY 03/01/17 [History] Losartan Potassium [Cozaar] 100 mg PO DAILY 03/01/17 [History] Melatonin [Melatin] 3 mg PO HS 03/01/17 [History] Nitroglycerin [Nitrostat] 0.4 mg SL Q5M PRN 03/01/17 [History] Omeprazole [PriLOSEC] 20 mg PO DAILY 03/01/17 [History] Sennosides/Docusate Sodium [Senna Plus] 1 each PO BID 03/01/17 [History] Simethicone [Gas-X] 160 mg PO QID PRN 03/01/17 [History] Tamsulosin [Flomax] 0.8 mg PO DAILY 03/01/17 [History] Tiotropium [Spiriva] 18 mcg IH 0700 03/01/17 [History] traZODone [TraZODone] 25 mg PO HS 03/01/17 [History] Docusate Sodium [Colace] 100 mg PO BID #60 capsule 03/06/17 [Rx] OxyCODONE/APAP 10/325 [Percocet 10/325 MG] 1 each PO Q4HR PRN #42 tablet [Rx] 3 Allergy/AdvReac Type Severity Reaction Status Date / Time lisinopril Allergy Hives Verified 12/12/16 07:23 tetanus immune globulin Allergy Rash Verified 12/12/16 07:23 - Meds/Allergy Pre-op Review Medications Reviewed: Yes Allergies Reviewed: Yes Beta Blockers on Current Med List: Yes If Beta Blockers taken, Date/Time (Last Dose taken): 03/12/2017 at 0822 Anesthesia Results - Labs 03/12/17 03:54 03/11/17 11:21 - Imaging EKG: report reviewed (03/10/2017 SR, possible RV conduction delay 07/14/2016 SR) Additional studies: 03/03/2017 Stress Impression: Pharmacologic stress ECG is negative for ischemia at level of heart rate achieved. Gated EF > 70%. Perfusion imaging was negative for ischemia or infarct. 04/13/2016 Echo Impressions: Normal LV systolic function, LVEF 60-65%. Mild concentric left ventricular hypertrophy. Mild left ventricular diastolic dysfunction. Normal right ventricular structure and function. A device lead was visualized in the right atrium and right ventricle. No significant valvular dysfunction. No evidence of pulmonary hypertension. 07/30/2013 Stress Impression: * Perfusion imaging was negative for ischemia or infarct. * Pharmacologic ECG was negative for ischemia at the level of heart rate achieved. * Patient had no chest pain with stress. * Normal hemodynamic response. * No arrhythmias noted with stress. * Gated EF = 70%. * The LV is not dilated. * TID ratio 1.29. Visually, there is very mild TID. This is a nonspecific finding that can be associated with significant CAD. Clinical correlation suggested. 07/30/2013 Echo Impressions: * LVEF 65%. Normal left ventricular size and systolic function. * There is evidence of mild (Grade I) diastolic dysfunction of the left ventricle. * Normal right ventricular size and function. * No significant valvular dysfunction. Mild mitral annular calcification. * Mildly sclerotic and thickened aortic valve but no stenosis. * Estimated RVSP was 26 mmHg. * No pulmonary hypertension. * Clinical correlation is suggested. Anesthesia Exam Vital Signs/O2 Sat/Glucose, Most Recent Temp Pulse Resp BP Pulse Ox 99.1 F 73 14 106/63 96 03/12/17 11:26 03/12/17 11:26 03/12/17 11:26 03/12/17 11:26 03/12/17 11:26 Blood Glucose* 150 Height: 5'11''/1.8 m Weight: 266 lbs/120.7 kg NPO (# of Hours): 8 Pain Scale: 0 Pain Scale Used: Numeric (1 - 10) - HEENT Pupil (Motor): EOMI Mallampati: III Teeth: Edentulous Oral Opening: Greater than 3 - SENIOR JAVA ARCHITECT LOC: Oriented SENIOR JAVA ARCHITECT Motor: Normal Face, Deficit RUE, Deficit LUE, Deficit RLE, Deficit LLE SENIOR JAVA ARCHITECT Sensory: Normal: Face, Deficit: RUE, LUE, RLE, LLE - Cardiac Rhythm: Regular Murmur: None - Pulmonary Breath Sounds: bilateral Clear (distant BS) Respiratory Effort: Symmetrical Anesthesia Assess/Plan ASA Score: 4 (Patient understands that he is at increased risk for perioperative complications including myocardial infarct, arrhythmias, CVA, post op vent support/ICU stay, and . Patient wishes to proceed.) Modified [place] Scale for Level of Consciousness: Cooperative, oriented, and tranquil Anesthetic Plan: General Monitoring Plan: Standard Monitors Recovery Plan: PACU
[2017-03-12] MEDS ORDERED: *HR* FentaNYL (PF) 100 MCG/2 ML VIAL ONE (13:19)
[2017-03-12] MEDS ORDERED: *HR* Labetalol 20 MG/4 ML SYRINGE IVP PRN (13:23)
[2017-03-12] MEDS ORDERED: Dexamethasone 4 MG/ML VIAL IVP ONE (13:23)
[2017-03-12] MEDS ORDERED: Ondansetron 4 MG/2 ML VIAL IVP ONE (13:23)
--- NOTE | 2017-03-12 13:51 | Internal Med Progress Note ---
Date of Encounter: 03/12/17 Time of Encounter: 08:50 - Assessment and plan (1) Abdominal pain Current Visit: Yes Status: Acute Assessment and plan: Due to biliary leak. Surgery following. Consulted GI for ERCP. Continue supportive care. Monitor vital signs. Qualifiers: Abdominal location: right upper quadrant Qualified Code(s): R10.11 - Right upper quadrant pain (2) Pneumonia Current Visit: Yes Status: Suspected Assessment and plan: WBC count is improving. Would recommend 10 day course of levofloxacin. Today is day 2. Cultures not done as patient was being treated with antibiotics for the past couple of weeks to treat different conditions. Qualifiers: Pneumonia type: due to Pneumococcus Laterality: right Lung location: lower lobe of lung Qualified Code(s): J13 - Pneumonia due to Streptococcus pneumoniae (3) A-fib Current Visit: Yes Status: Chronic Assessment and plan: Rate controlled. Not on anticoagulation. Qualifiers: Atrial fibrillation type: paroxysmal Qualified Code(s): I48.0 - Paroxysmal atrial fibrillation (4) Bile leak Current Visit: Yes Status: Acute Assessment and plan: Management per surgery recommendations (5) Chronic diastolic CHF (congestive heart failure) Current Visit: Yes Status: Chronic Assessment and plan: continue Lasix. Not in acute exacerbation. (6) COPD (chronic obstructive pulmonary disease) Current Visit: Yes Status: Chronic Assessment and plan: Continue bronchodilators as needed Qualifiers: COPD type: emphysema Emphysema type: unspecified Qualified Code(s): J43.9 - Emphysema, unspecified (7) DM2 (diabetes mellitus, type 2) Current Visit: Yes Status: Chronic Assessment and plan: Well controlled. Continue to monitor blood sugars and adjust insulin regimen accordingly Qualifiers: Diabetes mellitus complication status: with unspecified complications Diabetes mellitus continuous churn buttermaker insulin use: without continuous churn buttermaker use Qualified Code( s): E11.8 - Type 2 diabetes mellitus with unspecified complications (8) DVT prophylaxis Current Visit: Yes Status: Acute Assessment and plan: with subcutaneous heparin (9) Sleep apnea Current Visit: Yes Status: Chronic Assessment and plan: Use CPAP as needed. Qualifiers: Sleep apnea type: unspecified type Qualified Code(s): G47.30 - Sleep apnea , unspecified - Subjective Interval history: Patient doing well. No new complaints at this time. No nausea or vomiting. Has been nothing by mouth for planned ERCP later today. - Constitutional Vitals: Temp Pulse Resp BP Pulse Ox 99.1 F 74 16 112/53 95 03/12/17 11:26 03/12/17 13:08 03/12/17 13:08 03/12/17 13:08 03/12/17 13:08 General appearance: Present: mild distress, A&O X 3, pleasant, answers questions appropriately - Neck Neck exam general surgery: Present: supple, trachea midline. Absent: lymphadenopathy - Respiratory Respiratory exam: Present: CTAB. Absent: accessory muscle use, rales, rhonchi, wheezes - Cardiovascular Cardiovascular exam: Present: RRR, +S1, +S2. Absent: diastolic murmur, gallop, rubs, systolic murmur - GI/Abdominal GI/Abdominal exam: Present: normal bowel sounds, soft, no peritoneal signs. Absent: distended, tenderness - Extremities Exam Extremities exam: Present: warm, radial pulses palpable and symmetrical. Absent : calf tenderness, cyanotic, pedal edema - Neurological Exam Neurological exam: Present: oriented X3. Absent: facial droop, speech deficit - Skin Skin exam: Present: dry, intact Internal Medicine: Result - Labs CBC & Chem 7: 03/12/17 03:54 03/11/17 11:21 Labs: Short CBC 03/12/17 Range/Units 03:54 WBC 13.6 H (4.3-11.1) K/mcL Hgb 10.4 L D (12.9-16.9) g/dL Hct 33.1 L (37.5-50.1) % Plt Count 258 (140-400) K/mcL Neutrophils # 10.4 H (1.6-8.9) K/mcL - ABG Interpretation ABG results: ABG ABG pH 7.47 pH Units (7.32-7.45) H 03/11/17 17:15 ABG pCO2 42 mmHg (35-45) 03/11/17 17:15 ABG pO2 61 mmHg (85-104) L 03/11/17 17:15 ABG O2 Saturation 93 % (95-98) L 03/11/17 17:15 PT/INR, D-dimer PT 12.8 Seconds (9.4-12.1) H 03/10/17 09:54 - Impressions Impressions Chest CT 03/11/17 00:00 IMPRESSION: There is increased perihepatic fluid. There is trace fluid tracking along the right pericolic gutter. There is mild mass effect upon the liver suggesting fluid is of relatively higher viscosity than water and consistent with the history. D/ / Delfino Newman MD / Delfino Newman MD Interpreting Provider: Delfino Newman MD Abdomen/Pelvis CT 03/11/17 12:24 IMPRESSION: There is increased perihepatic fluid. There is trace fluid tracking along the right pericolic gutter. There is mild mass effect upon the liver suggesting fluid is of relatively higher viscosity than water and consistent with the history. D/ / Delfino Newman MD / Delfino Newman MD Interpreting Provider: Delfino Newman MD - VTE Documentation of Mechanical Device: Intermittent pneumatic compression device Consult Discharge Plan - Plan Referrals: [facility] [Primary Care Provider] -
[2017-03-12] MEDS ORDERED: Indomethacin 50 MG SUPP.RECT RC ONE (14:23)
[2017-03-12] MEDS ORDERED: Acetaminophen IV 1,000 MG/100 ML INFUS..BTL IVPB ONE (15:03)
[2017-03-12] MEDS ORDERED: *HR* HYDROmorphone (PF) 1 MG/ML SYRINGE IVP PRN (15:03)
[2017-03-12] MEDS ORDERED: *HR* HYDROmorphone (PF) 1 MG/ML SYRINGE ONE (15:05)
[2017-03-12] MEDS: *HR* HYDROmorphone (PF) 1 MG/ML SYRINGE IVP PRN ×3 (17:43→23:42)
--- NOTE | 2017-03-12 19:09 | Gastroenterology Consult Note ---
Date of Encounter: 03/12/17 Time of Encounter: 13:00 - Assessment and plan (1) Postoperative bile leak Current Visit: Yes Status: Acute Assessment and plan: recent gallbladder surgery now with a bile leak with positive HIDA scan. Plan is for ERCP with sphincterotomy and stent placement procedure including risks were discussed with the patient who was understanding and in agreement - Time Spent With Patient Total time spent is greater than 50% in coordination of care (as documented) at patient's floor/unit and/or counseling patient: GI History of Present Illness - Data of Consult Consult date: 03/12/17 Requesting Physician: Hamilton Capellan MD - Consult Narrative Reason for consult: Bile leak History of present illness: Mr. Haynes is a 71 year old male who recently had a gallbladder surgery done and is now admitted because of abdominal pain. Per the patient abdominal pain was diffuse and was going up into his lower chest. Had imaging done including HIDA scan that is positive for bile leak and was asked to see. While in the hospital patient is getting pain medication, per patient his abdominal pain is doing better than before Past Med Surg Social Fam HX - Past Medical History Medical history: atrial fibrillation, CHF, COPD, coronary artery disease, diabetes, GERD, hyperlipidemia, hypertension, other Psychiatric history: depression, PTSD, other - Past Surgical History Surgical History: appendectomy, carotid endarterectomy, cholecystectomy, pacemaker/AICD - Social History Smoking Status: Former smoker Smokeless Tobacco Status: No Alcohol use: occasionally Drug use: none - Family History Father Adopted: No Living Status: Hx Family Cardiac Disorders: Yes Hx Family Respiratory Disorders: Yes Hx Family Cancer: Yes Hx Family GI Disorders: No Hx Family Endocrine Disorder: No Hx Family Neuromuscular Disorders: No Hx Family Neurologic Disorders: No Hx Family HEENT Disorders: No Hx Family Autoimmune Disorders: No Review of Systems: GI: as per [facility]: denies fever, had chills EYES: denies yellow discoloration ENT: denies pain with swallowing or difficulty swallowing CARDIO: lower chest pain with abdominal pain RESP: No Shortness of breath with exertion : denies change in color of urine NEURO: HAs generalized weakness HEME: Denies any bruising DERM: denies rash or itching - Constitutional Vitals: Temp Pulse Resp BP Pulse Ox 98.2 F 76 16 125/59 91 03/12/17 18:30 03/12/17 18:30 03/12/17 18:30 03/12/17 18:30 03/12/17 18:30 CONSTITUTIONAL:~alert, no acute distress.~HEAD:~normocephalic.~EYES:~no jaundice.~NECK:~no obvious swelling.~HEART:~regular rate and rhythm, no murmurs. ~LUNGS:~bilateral good air entry.~ABDOMEN:~Soft and has tenderness in the upper abdomen on the right side.~RECTAL EXAM:~Deferred.~EXTREMITIES:~no clubbing, cyanosis .~SKIN:~no stigmata of chronic liver disease.~NEUROLOGIC:~no obvious focal defect.~~~~ Results - Labs CBC & Chem 7: 03/12/17 03:54 03/11/17 11:21 Labs: Last Result Calcium 8.8 mg/dL (8.6-10.8) 03/11/17 11:21 Troponin I 0.03 ng/mL (0-0.03) 03/10/17 09:54 Entire Visit Hgb 10.4 g/dL (12.9-16.9) L D 03/12/17 03:54 Hct 33.1 % (37.5-50.1) L 03/12/17 03:54 PT 12.8 Seconds (9.4-12.1) H 03/10/17 09:54 Total Bilirubin 1.0 mg/dL (0.2-1.2) 03/11/17 11:21 AST 14 Units/L (5-34) 03/11/17 11:21 ALT 33 Units/L (0-55) 03/11/17 11:21 Ammonia 29 mcmol/L (18-72) 03/11/17 17:38 Lipase < 10 Units/L (8-78) 03/10/17 09:54 - ABG ABG results: ABG ABG pH 7.47 pH Units (7.32-7.45) H 03/11/17 17:15 ABG pCO2 42 mmHg (35-45) 03/11/17 17:15 ABG pO2 61 mmHg (85-104) L 03/11/17 17:15 ABG O2 Saturation 93 % (95-98) L 03/11/17 17:15 PT/INR, D-dimer PT 12.8 Seconds (9.4-12.1) H 03/10/17 09:54 - Impressions Impressions Cath/Invasive Procedure 03/12/17 00:00 IMPRESSION: Unremarkable ERCP images. Please refer to the procedure report for further details. D/ / Denys Canales / Denys Canales Interpreting Provider: Denys Canales Consult Discharge Plan - Plan [facility]errals: [facility] [Primary Care Provider] -
[2017-03-12] MEDS: 0.9 % Sodium Chloride 1,000 ML IVC SCH (20:47)
[2017-03-12] MEDS: traZODone 50 MG TABLET PO SCH (20:48)
[2017-03-13] MEDS: Piperacillin/Tazobactam 3.375 GM in D5% in Water (Mini-Bag+) 100 ML IVPB SCH ×3 (03:24→18:17)
[2017-03-13] MEDS: *HR* HYDROmorphone (PF) 1 MG/ML SYRINGE IVP PRN ×2 (03:25→05:35)
[2017-03-13] MEDS: *HR* Heparin 5,000 UNIT/ML VIAL SQ SCH ×3 (05:32→21:01)
[2017-03-13 05:57] LABS: Alanine Aminotransferase 28 Units/L (0-55); Albumin/Globulin Ratio 0.5 (1.1-2.2); Alkaline Phosphatase 60 Units/L (38-126); Aspartate Amino Transferase 30 Units/L (5-34); BUN/Creatinine Ratio 18 (6-26); Bilirubin,Direct 0.4 mg/dL (0.0-0.5); Bilirubin,Indirect 0.3 mg/dL (0.0-1.2); Bilirubin,Total 0.7 mg/dL (0.2-1.2); Blood Urea Nitrogen 24 mg/dL (8-26); Calcium 8.6 mg/dL (8.6-10.8); Carbon Dioxide 24 mEq/L (19-29); Chloride 102 mEq/L (98-109); Globulin 4.3 g/dL (2.4-3.5); Glucose 155 mg/dL (70-99); Osmolality,Calculated 293 (280-300); Potassium 4.1 mEq/L (3.5-4.5); Sodium 138 mEq/L (136-145); Total Protein 6.3 g/dL (6.0-8.3); eGFR For African Americans > 60 (> 60); eGFR For Non-African Americans 52 (> 60)
[2017-03-13 06:01] LABS: Basophils % 0.2 %; Hematocrit 32.2 % (37.5-50.1); Hemoglobin 10.3 g/dL (12.9-16.9); Immature Granulocytes % 0.7 % (0-4); Lymphocytes # 0.7 K/mcL (0.6-4.6); Lymphocytes % 6.6 %; Mean Corpuscular Volume 84.3 fL (83.0-100.0); Mean Platelet Volume 10.5 fL (9.4-12.4); Monocytes # 0.9 K/mcL (0.0-1.3); Monocytes % 8.3 %; Neutrophils # 9.2 K/mcL (1.6-8.9); Platelet Count 232 K/mcL (140-400); Red Blood Count 3.82 M/mcL (4.19-5.50); Red Cell Distribution Width 14.1 % (11.5-14.5); Segmented Neutrophils % 84.2 %
[2017-03-13] MEDS: Tiotropium 18 MCG inhalation IH SCH (08:00)
[2017-03-13] MEDS: Levofloxacin 750 MG/150 ML 750 MG/150 ML BAG IVPB SCH (08:27)
[2017-03-13] MEDS: Insulin LISPRO 300 UNITS/3 ML VIAL SQ SCH ×4 (08:28→20:56)
--- NOTE | 2017-03-13 09:48 | Pre-Sedation Evaluation ---
Pre-sedation evaluation - Pre-sedation checklist Date of procedure: 03/12/17 Procedure: ERCP Recent Vitals: Last Vital Signs Temp 97.9 F 03/13/17 08:12 Pulse 62 03/13/17 08:12 Resp 14 03/13/17 08:12 BP 157/70 03/13/17 08:12 Pulse Ox 95 03/13/17 08:12 H&P (including ROS) documented in medical record: Yes Previous reaction to sedatives/anesthetics: No Dietary Status: NPO after Midnight Airway Assessment: Patient can open mouth completely, TMJ function normal, Micrognathia (under-bite, receding chin) absent, Neck with adequate range of motion Dentition: dentures removed Possible difficult airway: No ASA Classification *see protocol: CLASS II-Mild systemic disease Plan of Care: Pt appropriate candidate for procedure/moderate/conscious sedation , Risks/benefits of procedure/sedation discussed w/ patient/family, If not NPO; Risk of intake outweiged by necessity to perform procedure
[2017-03-13] MEDS ORDERED: *HR* Midazolam HCl 2 MG/2 ML VIAL ONE (09:55)
[2017-03-13] MEDS ORDERED: *HR* FentaNYL (PF) 100 MCG/2 ML VIAL ONE (09:55)
[2017-03-13] MEDS ORDERED: 0.9 % Sodium Chloride 500 ML ONE (10:01)
[2017-03-13] MEDS: *HR* Midazolam HCl 2 MG/2 ML VIAL IVP PRN ×2 (10:03→10:07)
[2017-03-13] MEDS: *HR* FentaNYL (PF) 100 MCG/2 ML VIAL IVP PRN ×2 (10:03→10:06)
--- NOTE | 2017-03-13 10:18 | IR Procedure Note ---
Date of procedure: 03/13/17 Consent Obtained: Written consent Timeout: Correct patient and procedure verified, Correct site verified, Time out performed, Skin prep completed Indications: biloma Procedure Performed: drain Site/Technique: liver, 12F drain placed Results/Findings: drained 500 cc initially, left to bulb suction Estimated blood loss (cc): 0 Complications: None; Tolerated procedure well Post Procedure Treatment Plan: bulb suction
--- NOTE | 2017-03-13 11:01 | General Surgery Progress Note ---
<Catina Varela - Last Filed: 03/13/17 11:37> Date of Encounter: 03/13/17 Time of Encounter: 10:59 - Assessment and Plan (1) Bile leak Current Visit: Yes Status: Acute patient has a well-documented bile leak after laparoscopic cholecystectomy. ERCP and temporary stent placed 03/12/2017 Drain placed in IR 03/13/2017. Noted 500 ml output during procedure and 70 ml upon returning to the floor Full liquid diet, advance diet as tolerated Stop IVF to avoid fluid overload Discomfort management PT/OT eval and treat for d/c planning (pt has home health nursing and aides, 7 days per week) and is currently requiring a 2-person assist for transfers Out of bed at least TID with meals Continue GI prophylaxis (2) Fluid overload Current Visit: Yes Status: Acute Will cautiously give one dose of IV lasix and strict I/Os. Daily weight standing scale only 2000 ml total fluid restriction Qualifiers: Hypervolemia type: other Qualified Code(s): E87.79 - Other fluid overload (3) Morbid obesity Current Visit: No Status: Chronic (4) Generalized weakness Current Visit: Yes Status: Acute See above (5) DVT prophylaxis Current Visit: Yes Status: Acute Heparin SQ injections EPCDs while in bed Out of bed at least TID with meals and with PT/OT Subjective Patient reports: no new complaints, feels better, still having pain, pain is less, voiding w/o difficulty, no flatus, no bowel movement, afebrile Objective Vital Signs - Last 8 Hours Temp Pulse Resp BP Pulse Ox 03/13/17 10:09 65 13 153/69 93 03/13/17 10:04 74 25 160/74 94 03/13/17 09:59 79 15 168/76 97 03/13/17 09:54 66 18 158/74 99 03/13/17 09:53 62 14 158/74 03/13/17 08:12 97.9 F 62 14 157/70 95 03/13/17 08:01 18 96 Intake and Output 03/12/17 03/13/17 03/13/17 23:59 07:59 15:59 Intake Total 50 / 50 200 / 200 957 / 957 Output Total 75 / 75 0 / 0 250 / 250 Balance -25 / -25 200 / 200 707 / 707 Intake: IV Fluids 50 / 50 200 / 200 597 / 597 0.9 % Sodium Chloride 1,000 ML 597 / 597 @ 50 mls/hr IVC .Q20H [facility] Rx#: [id number] Zosyn 3.375 GM In Dextrose 5% ( 50 / 50 200 / 200 Minibag+) 100 ML 100 ML @ 25 mls/hr IVPB Q8H [facility] Rx#: [id number] Oral 0 / 0 360 / 360 Output: Urine 75 / 75 0 / 0 250 / 250 Other: Meal NPO for breakfast Percent of Meal Consumed 10% Weight 132.54 kg Blood Glucose* 184 168 140 Patient Weight 03/13/17 23:59 Weight 132.54 kg - General physical appearance well nourished, no distress, moderate pain (Just returned from IR. Had difficulty and required 2-person assist to transfer) - Eyes normal ocular movement - ENT normal mucosa, atraumatic, normocephalic, Other (O2 per NC noted) - Neck Neck exam: trachea midline - Respiratory other (Decreased bibasilar) - Cardiovascular Cardiovascular exam: Present: RRR, distant heart sounds - Abdomen Abdomen: Present: bowel sounds present, soft, tender, wound (DELORIS drain with 70 ml of bilious material, clear) Hernia: none - Incision Incision: Present: clean and dry, intact - Integumentary no rash - Neurologic CN 2-12 grossly intact - Musculoskeletal other (Generalized weakness) - Psychiatric oriented to time, oriented to person, oriented to place, speech is normal, memory intact - Labs 03/13/17 05:24 03/13/17 05:24 Diabetes panel 03/13/17 Range/Units 05:24 Sodium 138 (136-145) mEq/L Potassium 4.1 (3.5-4.5) mEq/L Chloride 102 (98-109) mEq/L Carbon Dioxide 24 (19-29) mEq/L BUN 24 D (8-26) mg/dL Creatinine 1.36 H (0.72-1.25) mg/dL Glucose 155 H (70-99) mg/dL Calcium 8.6 (8.6-10.8) mg/dL AST 30 (5-34) Units/L ALT 28 (0-55) Units/L Alkaline Phosphatase 60 (38-126) Units/L Albumin 2.0 L (3.5-5.0) g/dL Calcium panel 03/13/17 Range/Units 05:24 Calcium 8.6 (8.6-10.8) mg/dL Albumin 2.0 L (3.5-5.0) g/dL Pituitary panel 03/13/17 Range/Units 05:24 Sodium 138 (136-145) mEq/L Potassium 4.1 (3.5-4.5) mEq/L Chloride 102 (98-109) mEq/L Carbon Dioxide 24 (19-29) mEq/L BUN 24 D (8-26) mg/dL Creatinine 1.36 H (0.72-1.25) mg/dL Glucose 155 H (70-99) mg/dL Calcium 8.6 (8.6-10.8) mg/dL Adrenal panel 03/13/17 Range/Units 05:24 Sodium 138 (136-145) mEq/L Potassium 4.1 (3.5-4.5) mEq/L Chloride 102 (98-109) mEq/L Carbon Dioxide 24 (19-29) mEq/L BUN 24 D (8-26) mg/dL Creatinine 1.36 H (0.72-1.25) mg/dL Glucose 155 H (70-99) mg/dL Calcium 8.6 (8.6-10.8) mg/dL Total Bilirubin 0.7 (0.2-1.2) mg/dL AST 30 (5-34) Units/L ALT 28 (0-55) Units/L Alkaline Phosphatase 60 (38-126) Units/L Albumin 2.0 L (3.5-5.0) g/dL - VTE Documentation of Mechanical Device: Intermittent pneumatic compression device Consult Discharge Plan - Plan [facility]errals: [facility] [Primary Care Provider] - <Jeremy Mandujano - Last Filed: 03/14/17 08:46> Date of Encounter: 03/14/17 Objective Vital Signs - Last 8 Hours Temp Pulse Resp BP Pulse Ox 03/14/17 07:02 98.2 F 64 18 135/70 95 03/14/17 04:36 98.5 F 62 16 120/66 95 Intake and Output 03/13/17 03/14/17 03/14/17 23:59 07:59 15:59 Intake Total 220 / 220 100 / 100 Output Total 320 / 320 725 / 725 Balance -100 / -100 -625 / -625 Intake: IV Fluids 100 / 100 100 / 100 Zosyn 3.375 GM In Dextrose 5% ( 100 / 100 100 / 100 Minibag+) 100 ML 100 ML @ 25 mls/hr IVPB Q8H [facility] Rx#: [id number] Oral 120 / 120 0 / 0 Output: Urine 300 / 300 725 / 725 Wound Drainage 20 / 20 0 / 0 Right Abdomen 20 / 20 0 / 0 Other: Weight 132.3 kg Blood Glucose* 143 126 Patient Weight 03/14/17 23:59 Weight 132.3 kg - Labs 03/14/17 05:39 03/14/17 05:39 Diabetes panel 03/14/17 Range/Units 05:39 Sodium 141 (136-145) mEq/L Potassium 3.6 (3.5-4.5) mEq/L Chloride 103 (98-109) mEq/L Carbon Dioxide 29 (19-29) mEq/L BUN 19 (8-26) mg/dL Creatinine 1.20 (0.72-1.25) mg/dL Glucose 128 H (70-99) mg/dL Calcium 8.4 L (8.6-10.8) mg/dL AST 36 H (5-34) Units/L ALT 34 (0-55) Units/L Alkaline Phosphatase 53 (38-126) Units/L Albumin 1.9 L (3.5-5.0) g/dL Calcium panel 03/14/17 Range/Units 05:39 Calcium 8.4 L (8.6-10.8) mg/dL Albumin 1.9 L (3.5-5.0) g/dL Pituitary panel 03/14/17 Range/Units 05:39 Sodium 141 (136-145) mEq/L Potassium 3.6 (3.5-4.5) mEq/L Chloride 103 (98-109) mEq/L Carbon Dioxide 29 (19-29) mEq/L BUN 19 (8-26) mg/dL Creatinine 1.20 (0.72-1.25) mg/dL Glucose 128 H (70-99) mg/dL Calcium 8.4 L (8.6-10.8) mg/dL Adrenal panel 03/14/17 Range/Units 05:39 Sodium 141 (136-145) mEq/L Potassium 3.6 (3.5-4.5) mEq/L Chloride 103 (98-109) mEq/L Carbon Dioxide 29 (19-29) mEq/L BUN 19 (8-26) mg/dL Creatinine 1.20 (0.72-1.25) mg/dL Glucose 128 H (70-99) mg/dL Calcium 8.4 L (8.6-10.8) mg/dL Total Bilirubin 0.5 (0.2-1.2) mg/dL AST 36 H (5-34) Units/L ALT 34 (0-55) Units/L Alkaline Phosphatase 53 (38-126) Units/L Albumin 1.9 L (3.5-5.0) g/dL - Attending Attestation For this encounter, I have reviewed the HEAD LOADER or PA documentation, treatment plan, and medical decision making; and I have had face to face time with this patient. Review the above assessment and agree with the overall evaluation and plan. We will continue to follow BMP due to elevated creatinine. Advance diet as tolerated.
[2017-03-13] MEDS ORDERED: Furosemide 40 MG/4 ML VIAL IVP ONE (11:10)
[2017-03-13] MEDS: Baclofen 10 MG TABLET PO SCH ×2 (14:05→21:01)
[2017-03-13] MEDS: Gabapentin 300 MG CAPSULE PO SCH ×2 (14:05→21:01)
--- NOTE | 2017-03-13 17:58 | Internal Med Progress Note ---
Date of Encounter: 03/13/17 Time of Encounter: 12:00 - Assessment and plan (1) Bile leak Current Visit: Yes Status: Acute Assessment and plan: -Patient with bile leak after laparoscopic cholecystectomy. -ERCP and temporary stent placed 03/12/2017 -Drain placed in IR 03/13/2017. -Full liquid diet, advance diet as tolerated -Surgery following an appreciate any additional recommendations. (2) Abdominal pain Current Visit: Yes Status: Acute Assessment and plan: -Secondary to above. Qualifiers: Abdominal location: right upper quadrant (3) Pneumonia Current Visit: Yes Status: Suspected Assessment and plan: -Will continue IV Zosyn and Levaquin for HAP Qualifiers: Pneumonia type: due to Pneumococcus Laterality: right Lung location: lower lobe of lung Qualified Code(s): J13 - Pneumonia due to Streptococcus pneumoniae (4) A-fib Current Visit: Yes Status: Chronic Assessment and plan: Rate controlled. Not on anticoagulation. Qualifiers: Atrial fibrillation type: paroxysmal Qualified Code(s): I48.0 - Paroxysmal atrial fibrillation (5) COPD (chronic obstructive pulmonary disease) Current Visit: Yes Status: Chronic Assessment and plan: Continue bronchodilators as needed Qualifiers: COPD type: emphysema Emphysema type: unspecified Qualified Code(s): J43.9 - Emphysema, unspecified (6) Chronic diastolic CHF (congestive heart failure) Current Visit: Yes Status: Chronic Assessment and plan: continue Lasix. Not in acute exacerbation. (7) DM2 (diabetes mellitus, type 2) Current Visit: Yes Status: Chronic Assessment and plan: Well controlled. 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 Qualifiers: Hypertension type: essential hypertension Qualified Code(s): I10 - Essential (primary) hypertension (9) Sleep apnea Current Visit: Yes Status: Chronic Assessment and plan: Use CPAP as needed. Qualifiers: Sleep apnea type: unspecified type Qualified Code(s): G47.30 - Sleep apnea , unspecified (10) CKD (chronic kidney disease) stage 3, GFR 30-59 ml/min Current Visit: No Status: Acute Assessment and plan: -Stable; continue to monitor. (11) DVT prophylaxis Current Visit: No Status: Acute Assessment and plan: -Continue subcutaneous heparin. - Subjective Interval history: Patient with no complaints this morning and no acute events overnight. - Constitutional Vitals: Temp Pulse Resp BP Pulse Ox 98.7 F 75 18 125/68 95 03/13/17 16:14 03/13/17 16:14 03/13/17 16:14 03/13/17 16:14 03/13/17 16:14 General appearance: Present: mild distress, A&O X 3, pleasant, answers questions appropriately - Respiratory Respiratory exam: Present: CTAB. Absent: accessory muscle use, rales, rhonchi, wheezes - Cardiovascular Cardiovascular exam: Present: RRR, +S1, +S2. Absent: diastolic murmur, gallop, rubs, systolic murmur Internal Medicine: Result - Labs CBC & Chem 7: 03/13/17 05:24 03/13/17 05:24 Labs: Short CBC 03/13/17 Range/Units 05:24 WBC 11.0 (4.3-11.1) K/mcL Hgb 10.3 L (12.9-16.9) g/dL Hct 32.2 L (37.5-50.1) % Plt Count 232 (140-400) K/mcL Neutrophils # 9.2 H (1.6-8.9) K/mcL BMP 03/13/17 05:24 Sodium 138 Potassium 4.1 Chloride 102 Carbon Dioxide 24 BUN 24 D Creatinine 1.36 H Glucose 155 H Calcium 8.6 Liver Function 03/13/17 Range/Units 05:24 Total Bilirubin 0.7 (0.2-1.2) mg/dL Direct Bilirubin 0.4 (0.0-0.5) mg/dL AST 30 (5-34) Units/L ALT 28 (0-55) Units/L Alkaline Phosphatase 60 (38-126) Units/L Albumin 2.0 L (3.5-5.0) g/dL - ABG Interpretation ABG results: ABG ABG pH 7.47 pH Units (7.32-7.45) H 03/11/17 17:15 ABG pCO2 42 mmHg (35-45) 03/11/17 17:15 ABG pO2 61 mmHg (85-104) L 03/11/17 17:15 ABG O2 Saturation 93 % (95-98) L 03/11/17 17:15 PT/INR, D-dimer PT 12.8 Seconds (9.4-12.1) H 03/10/17 09:54 - Impressions Impressions Shoulder X-Ray 03/12/17 18:33 IMPRESSION: No acute abnormality. D/ / Sara Hooker MD / Sara Hooker MD Interpreting Provider: Sara Hooker MD Needle Aspiration CT 03/13/17 00:00 IMPRESSION: Successful CT guided perihepatic biloma drainage under CT guidance. Moderate sedation given after 30 minutes. D/ : / 03/13/2017 15:04:32 Nina Thomas [facility] / [facility] Interpreting Provider: Nina Thomas MD - VTE Documentation of Mechanical Device: Intermittent pneumatic compression device Consult Discharge Plan - Plan Referrals: [facility] [Primary Care Provider] -
[2017-03-13] MEDS: 0.9 % Sodium Chloride 1,000 ML IVC SCH (19:44)
[2017-03-13] MEDS: traZODone 50 MG TABLET PO SCH (21:01)
[2017-03-14] MEDS: Piperacillin/Tazobactam 3.375 GM in D5% in Water (Mini-Bag+) 100 ML IVPB SCH ×2 (02:45→12:17)
[2017-03-14] MEDS ORDERED: Melatonin 3 MG TABLET PO SCH (03:00)
[2017-03-14 05:57] LABS: Basophils % 0.4 %; Eosinophils # 0.1 K/mcL (0.0-0.6); Eosinophils % 1.8 %; Hematocrit 31.4 % (37.5-50.1); Hemoglobin 9.8 g/dL (12.9-16.9); Immature Granulocytes % 1.3 % (0-4); Lymphocytes # 1.2 K/mcL (0.6-4.6); Mean Corpuscular HGB Conc 31.2 g/dL (31.6-35.5); Mean Corpuscular Hemoglobin 26.5 pg (28.0-33.3); Mean Corpuscular Volume 84.9 fL (83.0-100.0); Mean Platelet Volume 10.3 fL (9.4-12.4); Monocytes # 0.7 K/mcL (0.0-1.3); Monocytes % 8.9 %; Neutrophils # 5.6 K/mcL (1.6-8.9); Platelet Count 237 K/mcL (140-400); Red Cell Distribution Width 14.1 % (11.5-14.5); Segmented Neutrophils % 72.6 %
[2017-03-14 06:14] LABS: Alanine Aminotransferase 34 Units/L (0-55); Albumin/Globulin Ratio 0.5 (1.1-2.2); Alkaline Phosphatase 53 Units/L (38-126); Aspartate Amino Transferase 36 Units/L (5-34); BUN/Creatinine Ratio 16 (6-26); Bilirubin,Total 0.5 mg/dL (0.2-1.2); Blood Urea Nitrogen 19 mg/dL (8-26); Calcium 8.4 mg/dL (8.6-10.8); Carbon Dioxide 29 mEq/L (19-29); Chloride 103 mEq/L (98-109); Globulin 3.9 g/dL (2.4-3.5); Glucose 128 mg/dL (70-99); Osmolality,Calculated 296 (280-300); Potassium 3.6 mEq/L (3.5-4.5); Sodium 141 mEq/L (136-145); Total Protein 5.8 g/dL (6.0-8.3); eGFR For African Americans > 60 (> 60); eGFR For Non-African Americans > 60 (> 60)
[2017-03-14 06:18] LABS: Albumin 1.9 g/dL (3.5-5.0)
[2017-03-14] MEDS: *HR* Heparin 5,000 UNIT/ML VIAL SQ SCH (06:41)
[2017-03-14] MEDS: Tiotropium 18 MCG inhalation IH SCH (07:59)
[2017-03-14] MEDS: Gabapentin 300 MG CAPSULE PO SCH (08:53)
[2017-03-14] MEDS: Baclofen 10 MG TABLET PO SCH (08:53)
[2017-03-14] MEDS: Spironolactone 25 MG TABLET PO SCH (08:53)
[2017-03-14] MEDS: Finasteride 5 MG TABLET PO SCH (08:53)
[2017-03-14] MEDS: Metoprolol XL (24 HR) Succ 50 MG TAB.ER.24H PO SCH (08:53)
[2017-03-14] MEDS: Aspirin Enteric Coated 81 MG Tablet PO SCH (08:53)
[2017-03-14] MEDS: Furosemide 40 MG TABLET PO SCH (08:53)
[2017-03-14] MEDS: Levofloxacin 750 MG/150 ML 750 MG/150 ML BAG IVPB SCH (08:54)
[2017-03-14] MEDS ORDERED: Furosemide 40 MG/4 ML VIAL IVP ONE (09:16)
--- NOTE | 2017-03-14 09:18 | Discharge Summary ---
Date of Encounter: 03/14/17 Time of Encounter: 09:16 - Discharge Diagnosis (1) Bile leak Priority: Primary Status: Resolved (2) Fluid overload Priority: Secondary Status: Resolved Qualifiers: Hypervolemia type: other Qualified Code(s): E87.79 - Other fluid overload (3) Morbid obesity Priority: Secondary Status: Chronic (4) Generalized weakness Priority: Secondary Status: Acute (5) DVT prophylaxis Priority: Secondary Status: Acute - Discharge Medications Prescriptions: OxyCODONE/APAP 10/325 [Percocet 10/325 MG] 1 each PO Q4HR PRN #42 tablet PRN Reason: Pain Docusate [Colace] 100 mg PO BID #60 capsule Levofloxacin [Levaquin] 750 mg PO DAILY #7 tablet Home Medications: Aspirin Enteric Coated [Aspirin EC] 81 mg PO DAILY 04/13/15 [History] Gabapentin [Neurontin] 600 mg PO TID 04/13/15 [History] Metformin HCl [Glucophage] 1,000 mg PO BID 04/13/15 [History] Oxygen 2 l NS AD 01/26/16 [History] Spironolactone [Aldactone] 25 mg PO DAILY 01/26/16 [History] Metoprolol Succinate 150 mg PO DAILY 12/12/16 [History] Acetaminophen [Tylenol] 650 mg PO TID PRN 03/01/17 [History] Albuterol Sulfate [Albuterol Inhaler] 2 puff IH Q6H PRN 03/01/17 [History] Atorvastatin [Lipitor] 10 mg PO HS 03/01/17 [History] Baclofen [Lioresal] 10 mg PO TID 03/01/17 [History] Dicyclomine [Bentyl] 10 mg PO QID 03/01/17 [History] Diphenoxylate/Atropine [Lomotil 2.5 mg/0.025 mg] 1 each PO TID PRN 03/01/17 [ History] Finasteride [Proscar] 5 mg PO DAILY 03/01/17 [History] Furosemide [Lasix] 40 mg PO DAILY 03/01/17 [History] Losartan Potassium [Cozaar] 100 mg PO DAILY 03/01/17 [History] Melatonin [Melatin] 3 mg PO HS 03/01/17 [History] Nitroglycerin [Nitrostat] 0.4 mg SL Q5M PRN 03/01/17 [History] Omeprazole [PriLOSEC] 20 mg PO DAILY 03/01/17 [History] Sennosides/Docusate Sodium [Senna Plus] 1 each PO BID 03/01/17 [History] Simethicone [Gas-X] 160 mg PO QID PRN 03/01/17 [History] Tamsulosin [Flomax] 0.8 mg PO DAILY 03/01/17 [History] Tiotropium [Spiriva] 18 mcg IH 0700 03/01/17 [History] traZODone [TraZODone] 25 mg PO HS 03/01/17 [History] Docusate [Colace] 100 mg PO BID #60 capsule 03/14/17 [Rx] Levofloxacin [Levaquin] 750 mg PO DAILY #7 tablet 03/14/17 [Rx] OxyCODONE/APAP 10/325 [Percocet 10/325 MG] 1 each PO Q4HR PRN #42 tablet [Rx] Allergies/Adverse Reactions: 3 Allergy/AdvReac Type Severity Reaction Status Date / Time lisinopril Allergy Hives Verified 12/12/16 07:23 tetanus immune globulin Allergy Rash Verified 12/12/16 07:23 General Surgery Exam Initial Vital Signs Temp Pulse Resp BP Pulse Ox 98.7 F 76 18 187/72 79 03/10/17 09:07 03/10/17 09:07 03/10/17 09:07 03/10/17 09:07 03/10/17 09:07 - General physical appearance well developed, no distress, moderate pain - ENT normal mucosa, atraumatic, normocephalic - Neck trachea midline - Respiratory normal expansion, normal respiratory effort, other (Crackles LLL) - Cardiovascular Cardiovascular exam: Present: RRR, distant heart sounds - Abdomen Abdomen general surgery: Present: bowel sounds present, soft, tender (Expected postoperative), wound (DELORIS drain with bilious drainage no signs or symptoms of infection.) Hernia: Present: none - Incision Incision: Present: clean and dry, intact - Integumentary Integumentary general surgery: Present: warm and dry, no abnormal pigmentation - Neurologic Present: CN 2-12 grossly intact, normal coordination, normal sensation - Musculoskeletal Present: normal posture, other (Generalized weakness and two-person assist) - Psychiatric Psychiatric general surgery: Present: A&Ox3, appropriate, oriented to person, oriented to place, oriented to time, speech is normal, memory intact Date of admission: 03/10/17 17:54 [facility] care physician: [facility] Consults: 03/10/17 19:06 Consult to Pastoral Services [CONS] Routine Comment: 03/11/17 12:26 Consult to Gastroenterology [CONS] Stat Consulting Provider: Gastroenterology Jenna Reason for Consult: ERCP for bile leak Time Notified: 12:30 Call Completed: Yes 03/12/17 10:17 Consult to Physical Therapy [CONS] Routine Comment: Evaluate, develop and implement POC Reason for Consult: discharge planning OT [Consult to Occupational Therapy] [CONS] Routine Comment: Evaluate, develop and implement POC Reason for Consult: discharge planning 03/12/17 13:08 Consult to Interventional Radiology [CONS] Routine Consulting Provider: Radiology Interventional Cols Reason for Consult: placement of drain 03/13/17 Time Notified: 13:08 Call Completed: Yes 03/13/17 11:02 Consult to [facility] [employer] [CONS] Routine Reason for SW Consult: d/c planning. Pt is generally deconditioned and currently requiring 2 person assist with transfers. PT/OT has been ordered Discharging clinician: Jeremy Varela) Anticipated date of discharge: 03/14/17 - Patient Status Disposition: Still a Patient Condition: Good Functional capacity at discharge: independent ambulation Overall status at discharge: patient is progressing back to baseline - Discharge Instructions Follow Up With: Jeremy Mandujano MD [Partnered Physician] - 03/19/17 4:25 pm [place],PCP [Primary Care Provider] - 03/20/17 10:45 am Additional Instructions: -No lifting, pulling, pushing, greater than 15 pounds for 2 weeks. -May resume driving when you have been off narcotics for 24 hours and you are safe to react in the car. -You may shower beginning tomorrow. Wash the incisions daily with soap and water and pat dry. -No swimming, tub bath, or soaking for 2 weeks. -Return to the office for follow-up as directed. -Report any increase in discomfort or any new fevers greater than 101.5 degrees and signs of infection such as redness, swelling, or drainage from the incisions. -Record your drainage from you DELORIS drain and bring this to your follow-up appointment -take stool softener's for constipation while on narcotics. May hold for loose stool. Wound and drain care: Remove dressing, wash daily with soap and water, pat dry. You may shower beginning today. Suspend your DELORIS drain from a lanyard or a string around your neck. Do not let the DELORIS drain dangle while in the shower or are up walking around. Cover the area with a split gauze and tape to secure daily. - Diet and Activity Activity: as per physical therapy Diet: diabetic diet - Hospital Course Hospital course: Mr. Haynes is a 71 year old male who was admitted on 03/12/2017 for abdominal pain that radiated from the right upper quadrant to the shoulder. He was noted to have a history of laparoscopic cholecystectomy performed by Dr. Mandujano on for symptomatic cholelithiasis, chronic cholecystitis and cholelithiasis which made the dissection difficult. Upon readmission, he was noted to have a fluid accumulation around the liver and in the gallbladder fossa. He was taken for an ERCP and had a temporary stent placed by Dr. Valles. He was then taken to interventional radiology for drainage of the biloma and placement of the T-tube. He was noted to have 500 ml of clear bilious material at the time of drain placement. His DELORIS drainage is unchanged and character and is approximately 100 mL and 24 hours. This hospital course was complicated by hospital acquired pneumonia for which he was treated with Levaquin and so sin ( managed per medicine), fluid overload for which he was treated with IV Lasix and diaries to appropriately, and general deconditioning for which PT/OT were asked to eval and treat for d/c planning. He is afebrile. His vital signs are stable. He is tolerating a diet without difficulty. He was placed on a 2 L total fluid restriction daily. The patient requests rapid discharge at this time stating he has "things I have to do it home by Sunday and it can't change. " He does report that he wears 2 L nasal cannula oxygen at home at all times and he has returned to his baseline for us. Of note on patient's previous admissions there was mention of a possible renal mass. No records are available from the [facility] at this time for review. We have requested these records from the [facility] and will make the appropriate referrals pending the receipt of these records. We will begin discharge planning with the recommendation of rehab placement per PT and OT recommendations. I do not think that the patient is agreeable to this however I do feel this is the most safe course. If he refuses, could consider home health nursing and aid. Patient will follow-up with Dr. Mandujano in the office in one week. A determination will be made as to the length of time to DELORIS drain will be left and at that time. He will be discharged on 7 days of Levaquin by mouth, pain medication, and stool softener. - Time Spent with Patient Total time spent providing and/or coordinating discharge services: Labs on day of discharge: Labs from last 24 hours 03/14/17 03/14/17 03/13/17 05:39 05:39 20:54 WBC 7.7 RBC 3.70 L Hgb 9.8 L Hct 31.4 L MCV 84.9 MCH 26.5 L MCHC 31.2 L RDW 14.1 Plt Count 237 MPV 10.3 Immature Gran % 1.3 Seg Neutrophils % 72.6 Lymphocytes % 15.0 Monocytes % 8.9 Eosinophils % 1.8 Basophils % 0.4 Neutrophils # 5.6 Lymphocytes # 1.2 Monocytes # 0.7 Eosinophils # 0.1 Basophils # 0.0 Sodium 141 Potassium 3.6 Chloride 103 Carbon Dioxide 29 BUN 19 Creatinine 1.20 Est GFR ( Amer) > 60 Est GFR (Non-Af Amer) > 60 BUN/Creatinine Ratio 16 Glucose 128 H POC Glucose 136 H Calculated Osmolality 296 Calcium 8.4 L Total Bilirubin 0.5 AST 36 H ALT 34 Alkaline Phosphatase 53 Serum Total Protein 5.8 L Albumin 1.9 L Globulin 3.9 H Albumin/Globulin Ratio 0.5 L 03/13/17 03/13/17 16:46 11:21 WBC RBC Hgb Hct MCV MCH MCHC RDW Plt Count MPV Immature Gran % Seg Neutrophils % Lymphocytes % Monocytes % Eosinophils % Basophils % Neutrophils # Lymphocytes # Monocytes # Eosinophils # Basophils # Sodium Potassium Chloride Carbon Dioxide BUN Creatinine Est GFR ( Amer) Est GFR (Non-Af Amer) BUN/Creatinine Ratio Glucose POC Glucose 143 H 150 H Calculated Osmolality Calcium Total Bilirubin AST ALT Alkaline Phosphatase Serum Total Protein Albumin Globulin Albumin/Globulin Ratio - Impressions ITS Impressions Chest CT 03/11/17 00:00 IMPRESSION: There is increased perihepatic fluid. There is trace fluid tracking along the right pericolic gutter. There is mild mass effect upon the liver suggesting fluid is of relatively higher viscosity than water and consistent with the history. D/ / Delfino Newman MD / Delfino Newman MD Interpreting Provider: Delfino Newman MD Abdomen/Pelvis CT 03/11/17 12:24 IMPRESSION: There is increased perihepatic fluid. There is trace fluid tracking along the right pericolic gutter. There is mild mass effect upon the liver suggesting fluid is of relatively higher viscosity than water and consistent with the history. D/ / Delfino Newman MD / Delfino Newman MD Interpreting Provider: Delfino Newman MD Cath/Invasive Procedure 03/12/17 00:00 IMPRESSION: Unremarkable ERCP images. Please refer to the procedure report for further details. D/ / Denys Canales / Denys Canales Interpreting Provider: Denys Canales Shoulder X-Ray 03/12/17 18:33 IMPRESSION: No acute abnormality. D/ / Sara Hooker MD / Sara Hooker MD Interpreting Provider: Sara Hooker MD Needle Aspiration CT 03/13/17 00:00 IMPRESSION: Successful CT guided perihepatic biloma drainage under CT guidance. Moderate sedation given after 30 minutes. D/ / 03/13/2017 15:04:32 Nina Thomas MD / mary jane Interpreting Provider: Nina Thomas MD
[2017-03-14] MEDS: Insulin LISPRO 300 UNITS/3 ML VIAL SQ SCH ×2 (09:51→12:13)
[2017-03-14 11:16] VITALS: BP 101/61
--- NOTE | 2017-03-14 16:09 | Physician Discharge Referral ---
Home Health/Hosp Referral Info Transfer to: Home Health Attending Provider: Dr. Jeremy Mandujano Provider in Charge Post Discharge: Other (Dr. Jeremy Mandujano) - Diagnosis (1) Bile leak Priority: Primary Status: Resolved (2) Fluid overload Priority: Secondary Status: Resolved (3) Morbid obesity Priority: Primary Status: Chronic (4) Generalized weakness Priority: Secondary Status: Chronic (5) DVT prophylaxis Priority: Secondary Status: Resolved - Respiratory Orders Other ( per previous) Smoking Cessation: Smoking cessation has been advised. For more information, call the [place] Tobacco Quit Line at 2-458-LHNA-NOW. - Dressing/Wound Care Site: RUQ DELORIS drain site: Wound and drain care: Remove dressing, wash daily with soap and water, pat dry. You may shower beginning today. Suspend your DELORIS drain from a lanyard or a string around your neck. Do not let the DELORIS drain dangle while in the shower or are up walking around. Cover the area with a split gauze and tape to secure daily. - Diet/Nutrition Diet/Nutrition Orders: Regular (Diabetic; 2L total fluid restrictions) - Activity Activity Orders: Up ad hakan - Services Needed Following services are medically necessary services: Skilled Nursing Care Orders: -No lifting, pulling, pushing, greater than 15 pounds for 2 weeks. -May resume driving when you have been off narcotics for 24 hours and you are safe to react in the car. -You may shower beginning tomorrow. Wash the incisions daily with soap and water and pat dry. -No swimming, tub bath, or soaking for 2 weeks. -Return to the office for follow-up as directed. -Report any increase in discomfort or any new fevers greater than 101.5 degrees and signs of infection such as redness, swelling, or drainage from the incisions. -Record your drainage from you DELORIS drain and bring this to your follow-up appointment -take stool softener's for constipation while on narcotics. May hold for loose stool. Wound and drain care: Remove dressing, wash daily with soap and water, pat dry. You may shower beginning today. Suspend your DELORIS drain from a lanyard or a string around your neck. Do not let the DELORIS drain dangle while in the shower or are up walking around. Cover the area with a split gauze and tape to secure daily. - Transfer Medications Prescriptions: OxyCODONE/APAP 10/325 [Percocet 10/325 MG] 1 each PO Q4HR PRN #42 tablet PRN Reason: Pain Docusate [Colace] 100 mg PO BID #60 capsule Levofloxacin [Levaquin] 750 mg PO DAILY #7 tablet Home Medications: Aspirin Enteric Coated [Aspirin EC] 81 mg PO DAILY 04/13/15 [History] Gabapentin [Neurontin] 600 mg PO TID 04/13/15 [History] Metformin HCl [Glucophage] 1,000 mg PO BID 04/13/15 [History] Oxygen 2 l NS AD 01/26/16 [History] Spironolactone [Aldactone] 25 mg PO DAILY 01/26/16 [History] Metoprolol Succinate 150 mg PO DAILY 12/12/16 [History] Acetaminophen [Tylenol] 650 mg PO TID PRN 03/01/17 [History] Albuterol Sulfate [Albuterol Inhaler] 2 puff IH Q6H PRN 03/01/17 [History] Atorvastatin [Lipitor] 10 mg PO HS 03/01/17 [History] Baclofen [Lioresal] 10 mg PO TID 03/01/17 [History] Dicyclomine [Bentyl] 10 mg PO QID 03/01/17 [History] Diphenoxylate/Atropine [Lomotil 2.5 mg/0.025 mg] 1 each PO TID PRN 03/01/17 [ History] Finasteride [Proscar] 5 mg PO DAILY 03/01/17 [History] Furosemide [Lasix] 40 mg PO DAILY 03/01/17 [History] Losartan Potassium [Cozaar] 100 mg PO DAILY 03/01/17 [History] Melatonin [Melatin] 3 mg PO HS 03/01/17 [History] Nitroglycerin [Nitrostat] 0.4 mg SL Q5M PRN 03/01/17 [History] Omeprazole [PriLOSEC] 20 mg PO DAILY 03/01/17 [History] Sennosides/Docusate Sodium [Senna Plus] 1 each PO BID 03/01/17 [History] Simethicone [Gas-X] 160 mg PO QID PRN 03/01/17 [History] Tamsulosin [Flomax] 0.8 mg PO DAILY 03/01/17 [History] Tiotropium [Spiriva] 18 mcg IH 0700 03/01/17 [History] traZODone [TraZODone] 25 mg PO HS 03/01/17 [History] Docusate [Colace] 100 mg PO BID #60 capsule 03/14/17 [Rx] Levofloxacin [Levaquin] 750 mg PO DAILY #7 tablet 03/14/17 [Rx] OxyCODONE/APAP 10/325 [Percocet 10/325 MG] 1 each PO Q4HR PRN #42 tablet [Rx] Allergies/Adverse Reactions: 3 Allergy/AdvReac Type Severity Reaction Status Date / Time lisinopril Allergy Hives Verified 12/12/16 07:23 tetanus immune globulin Allergy Rash Verified 12/12/16 07:23 Certification: Further, I certify that my clinical findings support that this patient is homebound (i.e. absences from home require considerable and taxing effort and are for medical reasons or [employer] or infrequently or short duration when for other reasons) because: Homebound Reason: Patient requires assistance of a person or device to safely leave home, Leaving home requires considerable and taxing effort due to condition Attestation: My signature below is to certify that this patient is under my care and that I, or nurse practitioner, or a physician's finance assistant working with me, has a face-to -face encounter with this patient.
[2017-03-14] MEDS ORDERED: Ondansetron 4 MG/2 ML VIAL IM ONE (16:44)
[2017-03-14] MEDS ORDERED: *HR* Succinylcholine 200 MG/10 ML VIAL IVP ONE (16:44)
[2017-03-14] MEDS ORDERED: Lidocaine -MPF 2% 5 ML VIAL INFILT ONE (16:44)
[2017-03-14] MEDS ORDERED: *HR* Propofol 200 MG/20 ML VIAL IVP ONE (16:44)
[2017-03-14] MEDS ORDERED: EPHEDrine 50 MG/ML VIAL IVP ONE (16:44)
[2017-03-14] MEDS ORDERED: Lidocaine -MPF 4% 5 ML AMPUL INFILT ONE (16:44)
--- NOTE | 2017-03-14 17:23 | Internal Med Progress Note ---
Date of Encounter: 03/14/17 Time of Encounter: 11:00 - Assessment and plan (1) Bile leak Status: Resolved Assessment and plan: -Patient with bile leak after laparoscopic cholecystectomy. -ERCP and temporary stent placed 03/12/2017 -Drain placed in IR 03/13/2017. -Surgery to discharge patient today. (2) Abdominal pain Status: Acute Assessment and plan: -Secondary to above. (3) Pneumonia Status: Suspected Assessment and plan: -Patient okay to switch from IV Zosyn to oral Levaquin for treatment of pneumonia. -Discussed with PILAR that patient should take oral Levaquin as an outpatient for pneumonia. Qualifiers: Pneumonia type: due to Pneumococcus Laterality: right Lung location: lower lobe of lung Qualified Code(s): J13 - Pneumonia due to Streptococcus pneumoniae (4) A-fib Status: Chronic Assessment and plan: Rate controlled. Not on anticoagulation. Qualifiers: Atrial fibrillation type: paroxysmal Qualified Code(s): I48.0 - Paroxysmal atrial fibrillation (5) COPD (chronic obstructive pulmonary disease) Status: Chronic Assessment and plan: Continue bronchodilators as needed Qualifiers: COPD type: emphysema Emphysema type: unspecified Qualified Code(s): J43.9 - Emphysema, unspecified (6) Chronic diastolic CHF (congestive heart failure) Status: Chronic Assessment and plan: continue Lasix. Not in acute exacerbation. (7) DM2 (diabetes mellitus, type 2) Status: Chronic Assessment and plan: Well controlled. 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 Qualifiers: Hypertension type: essential hypertension Qualified Code(s): I10 - Essential (primary) hypertension (9) Sleep apnea Status: Chronic Assessment and plan: Use CPAP as needed. Qualifiers: Sleep apnea type: unspecified type Qualified Code(s): G47.30 - Sleep apnea , unspecified (10) CKD (chronic kidney disease) stage 3, GFR 30-59 ml/min Status: Acute Assessment and plan: -Stable; continue to monitor. - Subjective Interval history: Patient with no complaints this morning and no acute events overnight. Patient requesting to go home in spite of recommendations for a senior care facility due to being a 3 person assist. - Constitutional Vitals: Temp Pulse Resp BP Pulse Ox 98.7 F 71 18 101/61 95 03/14/17 11:00 03/14/17 11:00 03/14/17 11:00 03/14/17 11:00 03/14/17 11:00 General appearance: Present: mild distress, A&O X 3, pleasant, answers questions appropriately - Respiratory Respiratory exam: Present: CTAB. Absent: accessory muscle use, rales, rhonchi, wheezes - Cardiovascular Cardiovascular exam: Present: RRR, +S1, +S2. Absent: diastolic murmur, gallop, rubs, systolic murmur Internal Medicine: Result - Labs CBC & Chem 7: 03/14/17 05:39 03/14/17 05:39 Labs: Short CBC 03/14/17 Range/Units 05:39 WBC 7.7 (4.3-11.1) K/mcL Hgb 9.8 L (12.9-16.9) g/dL Hct 31.4 L (37.5-50.1) % Plt Count 237 (140-400) K/mcL Neutrophils # 5.6 (1.6-8.9) K/mcL BMP 03/14/17 05:39 Sodium 141 Potassium 3.6 Chloride 103 Carbon Dioxide 29 BUN 19 Creatinine 1.20 Glucose 128 H Calcium 8.4 L Liver Function 03/14/17 Range/Units 05:39 Total Bilirubin 0.5 (0.2-1.2) mg/dL AST 36 H (5-34) Units/L ALT 34 (0-55) Units/L Alkaline Phosphatase 53 (38-126) Units/L Albumin 1.9 L (3.5-5.0) g/dL - ABG Interpretation ABG results: ABG ABG pH 7.47 pH Units (7.32-7.45) H 03/11/17 17:15 ABG pCO2 42 mmHg (35-45) 03/11/17 17:15 ABG pO2 61 mmHg (85-104) L 03/11/17 17:15 ABG O2 Saturation 93 % (95-98) L 03/11/17 17:15 PT/INR, D-dimer PT 12.8 Seconds (9.4-12.1) H 03/10/17 09:54 - VTE Documentation of Mechanical Device: Intermittent pneumatic compression device Consult Discharge Plan - Plan Additional Instructions: -No lifting, pulling, pushing, greater than 15 pounds for 2 weeks. -May resume driving when you have been off narcotics for 24 hours and you are safe to react in the car. -You may shower beginning tomorrow. Wash the incisions daily with soap and water and pat dry. -No swimming, tub bath, or soaking for 2 weeks. -Return to the office for follow-up as directed. -Report any increase in discomfort or any new fevers greater than 101.5 degrees and signs of infection such as redness, swelling, or drainage from the incisions. -Record your drainage from you DELORIS drain and bring this to your follow-up appointment -take stool softener's for constipation while on narcotics. May hold for loose stool. Wound and drain care: Remove dressing, wash daily with soap and water, pat dry. You may shower beginning today. Suspend your DELORIS drain from a lanyard or a string around your neck. Do not let the DELORIS drain dangle while in the shower or are up walking around. Cover the area with a split gauze and tape to secure daily. Referrals: Jeremy Mandujano MD [Partnered Physician] - 03/19/17 4:25 pm [place],PCP [Primary Care Provider] - 03/20/17 10:45 am Prescriptions: OxyCODONE/APAP 10/325 [Percocet 10/325 MG] 1 each PO Q4HR PRN #42 tablet PRN Reason: Pain Docusate [Colace] 100 mg PO BID #60 capsule Levofloxacin [Levaquin] 750 mg PO DAILY #7 tablet
[2017-03-15] MEDS ORDERED: levoFLOXacin 750 MG TABLET PO SCH (09:00)
== END 2017-03-14 16:45 | disposition still patient (30) | DRG 393 ==
LOC: EMEROO 09:00 → 3ANU 09:00 → SUATTDRO 17:54 → 3ANU 18:31
PROVIDERS: ADMIT Surgery; ATTEND Surgery
PROC: IRDRAIN (2017-03-13 12:00)

== ENCOUNTER 2019-10-25 10:59 | Observation (INO) ==
[2019-10-25 11:59] LABS: Basophils % 0.3 %; Eosinophils % 0.1 %; Hematocrit 41.5 % (37.5-50.1); Hemoglobin 13.2 g/dL (12.9-16.9); Immature Granulocytes % 0.5 % (0-4); Lymphocytes # 1.3 K/mcL (0.6-4.6); Lymphocytes % 12.8 %; Mean Corpuscular HGB Conc 31.8 g/dL (31.6-35.5); Mean Corpuscular Hemoglobin 28.1 pg (28.0-33.3); Mean Corpuscular Volume 88.5 fL (83.0-100.0); Mean Platelet Volume 9.8 fL (9.4-12.4); Monocytes # 0.6 K/mcL (0.0-1.3); Monocytes % 5.6 %; Platelet Count 189 K/mcL (140-400); Red Blood Count 4.69 M/mcL (4.19-5.50); Red Cell Distribution Width 13.8 % (11.5-14.5); Segmented Neutrophils % 80.7 %; White Blood Count 9.9 K/mcL (4.3-11.1)
[2019-10-25 12:05] LABS: INR 1.1
[2019-10-25 12:07] LABS: Activated Partial Thrombo Time 30.8 Seconds (26.0-36.0)
[2019-10-25] MEDS ORDERED: Aspirin 81 MG TAB.CHEW PO ONE (12:54)
[2019-10-25 13:06] LABS: Bilirubin,Urine Negative (Negative); Blood,Urine Moderate (Negative); Clarity,Urine Clear (Clear); Color,Urine Yellow (Yellow); Glucose,Urine (UA) Normal (Normal); Ketones,Urine Negative (Negative); Leukocyte Esterase,Urine Negative (Negative); Nitrite,Urine Negative (Negative); PH,Urine 7.5 pH Units (5.0-8.0); Protein,Urine Negative (Neg-Trace); Specific Gravity,Urine 1.012 (1.010-1.025); Urobilinogen,Urine Normal (Normal)
[2019-10-25 13:27] LABS: Alanine Aminotransferase 16 Units/L (7-52); Albumin 3.8 g/dL (3.5-5.7); Albumin/Globulin Ratio 1.2 (1.1-2.2); Alkaline Phosphatase 68 Units/L (34-104); Aspartate Amino Transferase 15 Units/L (13-39); BUN/Creatinine Ratio 14 (6-26); Bilirubin,Direct 0.1 mg/dL (0.0-0.2); Bilirubin,Indirect 0.3 mg/dL (0.0-1.0); Bilirubin,Total 0.4 mg/dL (0.3-1.0); Blood Urea Nitrogen 16 mg/dL (8-23); Calcium 9.2 mg/dL (8.6-10.3); Carbon Dioxide 27 mEq/L (23-29); Chloride 100 mEq/L (98-107); Globulin 3.1 g/dL (2.4-3.5); Glucose 123 mg/dL (70-105); Magnesium 1.8 mg/dL (1.6-2.6); Osmolality,Calculated 279 (280-300); Potassium 4.6 mEq/L (3.5-5.1); Sodium 133 mEq/L (136-145); Total Protein 6.9 g/dL (6.4-8.9); eGFR For African Americans > 60 (> 60); eGFR For Non-African Americans > 60 (> 60)
[2019-10-25 13:31] LABS: Bacteria,Urine None Seen per hpf (None-Few); Hyaline Casts,Urine None Seen per lpf (None-Few); RBC,Urine 30-50 per hpf (0-3); Squamous Epithelial Cell,Urine Many per lpf (None-Few); WBC,Urine 0-3 per hpf (0-3)
[2019-10-25] MEDS ORDERED: Naloxone 0.4 MG/ML INJ IVP PRN (14:03)
[2019-10-25] MEDS ORDERED: Ondansetron 4 MG/2 ML VIAL IVP PRN (14:03)
[2019-10-25 14:17] LABS: C-Reactive Protein 21 mg/L (Less than 10)
[2019-10-25] MEDS ORDERED: D5% in Water 1,000 ML IVC PRN (14:19)
[2019-10-25] MEDS ORDERED: Dextrose Gel 15 GM/37.5 ML TUBE PO PRN ×2 (14:19)
[2019-10-25] MEDS ORDERED: *HR* Dextrose 50 % in Water (Syg) 50 ML SYRINGE IVP PRN (14:19)
[2019-10-25] MEDS ORDERED: Ipratropium/Albuterol Neb 3 ML IH PRN (14:20)
[2019-10-25] MEDS ORDERED: *HR* Labetalol 20 MG/4 ML SYRINGE IVP PRN (14:21)
[2019-10-25] MEDS ORDERED: Nitroglycerin 0.4 MG TAB.SUBL SL PRN (14:59)
[2019-10-25] MEDS ORDERED: Acetaminophen 325 MG TABLET PO PRN (14:59)
[2019-10-25] MEDS: Insulin LISPRO 300 UNITS/3 ML VIAL SQ SCH (17:29)
[2019-10-25] MEDS: Gabapentin 300 MG CAPSULE PO SCH ×2 (17:30→19:59)
[2019-10-25] MEDS: ceFAZolin 1,000 MG in Water for inj. (sterile) 10 ML IVP SCH ×2 (17:31→23:37)
[2019-10-25] MEDS: Melatonin 3 MG TABLET PO SCH (19:59)
[2019-10-25] MEDS: *HR* Heparin 5,000 UNIT/ML VIAL SQ SCH (20:04)
[2019-10-25] MEDS: Budesonide/Formoterol 160/4.5 1 PUFF INH IH SCH (21:46)
[2019-10-26] MEDS: *HR* Heparin 5,000 UNIT/ML VIAL SQ SCH ×3 (05:53→20:36)
[2019-10-26 07:00] LABS: Basophils % 0.4 %; Eosinophils # 0.2 K/mcL (0.0-0.6); Eosinophils % 2.8 %; Hematocrit 38.8 % (37.5-50.1); Hemoglobin 12.2 g/dL (12.9-16.9); Immature Granulocytes % 0.6 % (0-4); Lymphocytes # 1.4 K/mcL (0.6-4.6); Mean Corpuscular HGB Conc 31.4 g/dL (31.6-35.5); Mean Corpuscular Hemoglobin 27.7 pg (28.0-33.3); Mean Corpuscular Volume 88.2 fL (83.0-100.0); Mean Platelet Volume 9.8 fL (9.4-12.4); Monocytes # 0.6 K/mcL (0.0-1.3); Monocytes % 8.5 %; Platelet Count 181 K/mcL (140-400); Red Cell Distribution Width 13.7 % (11.5-14.5); Segmented Neutrophils % 68.7 %; White Blood Count 7.3 K/mcL (4.3-11.1)
[2019-10-26 07:20] LABS: BUN/Creatinine Ratio 13 (6-26); Blood Urea Nitrogen 16 mg/dL (8-23); Calcium 8.8 mg/dL (8.6-10.3); Carbon Dioxide 28 mEq/L (23-29); Chloride 99 mEq/L (98-107); Glucose 106 mg/dL (70-105); Magnesium 1.9 mg/dL (1.6-2.6); Osmolality,Calculated 282 (280-300); Potassium 4.3 mEq/L (3.5-5.1); Sodium 135 mEq/L (136-145); eGFR For African Americans > 60 (> 60); eGFR For Non-African Americans 58 (> 60)
[2019-10-26] MEDS: Insulin LISPRO 300 UNITS/3 ML VIAL SQ SCH ×3 (08:36→16:15)
[2019-10-26] MEDS: Gabapentin 300 MG CAPSULE PO SCH ×3 (08:37→20:36)
[2019-10-26] MEDS: Finasteride 5 MG TABLET PO SCH (08:37)
[2019-10-26] MEDS: Metoprolol XL (24 HR) Succ 50 MG TAB.ER.24H PO SCH (08:37)
[2019-10-26] MEDS: Spironolactone 25 MG TABLET PO SCH (08:37)
[2019-10-26] MEDS: Furosemide 40 MG TABLET PO SCH (08:38)
[2019-10-26] MEDS: Aspirin Enteric Coated 81 MG Tablet PO SCH (08:38)
[2019-10-26] MEDS: Thiamine (B-1) 100 MG TABLET PO SCH (08:38)
[2019-10-26] MEDS: ceFAZolin 1,000 MG in Water for inj. (sterile) 10 ML IVP SCH ×3 (08:48→23:30)
[2019-10-26] MEDS: Budesonide/Formoterol 160/4.5 1 PUFF INH IH SCH ×2 (10:01→21:54)
[2019-10-26] MEDS: Melatonin 3 MG TABLET PO SCH (20:36)
[2019-10-27] MEDS: *HR* Heparin 5,000 UNIT/ML VIAL SQ SCH (05:51)
[2019-10-27] MEDS: Insulin LISPRO 300 UNITS/3 ML VIAL SQ SCH ×2 (07:31→12:03)
[2019-10-27] MEDS: Budesonide/Formoterol 160/4.5 1 PUFF INH IH SCH (07:55)
[2019-10-27] MEDS: Metoprolol XL (24 HR) Succ 50 MG TAB.ER.24H PO SCH (08:35)
[2019-10-27] MEDS: Aspirin Enteric Coated 81 MG Tablet PO SCH (08:35)
[2019-10-27] MEDS: ceFAZolin 1,000 MG in Water for inj. (sterile) 10 ML IVP SCH (08:36)
[2019-10-27] MEDS: Finasteride 5 MG TABLET PO SCH (08:36)
[2019-10-27] MEDS: Thiamine (B-1) 100 MG TABLET PO SCH (08:36)
[2019-10-27] MEDS: Furosemide 40 MG TABLET PO SCH (08:36)
[2019-10-27] MEDS: Gabapentin 300 MG CAPSULE PO SCH (08:36)
[2019-10-27] MEDS: Spironolactone 25 MG TABLET PO SCH (08:36)
[2019-10-27 10:53] VITALS: BP 114/66
== END 2019-10-27 14:45 | disposition home health service (06) ==
LOC: 3BNU 10:59 → EMEROOARM 10:59 → SUATTDRO 14:55 → 3BNU 15:30
PROVIDERS: ADMIT Family Medicine; ATTEND Internal Medicine

== ENCOUNTER 2020-03-08 20:32 | Observation (INO) ==
[2020-03-08 21:15] LABS: Basophils # 0.1 K/mcL (0.0-0.2); Basophils % 0.5 %; Eosinophils # 0.2 K/mcL (0.0-0.6); Eosinophils % 1.7 %; Hematocrit 42.2 % (37.5-50.1); Hemoglobin 13.4 g/dL (12.9-16.9); Immature Granulocytes % 0.4 % (0-4); Lymphocytes # 1.8 K/mcL (0.6-4.6); Lymphocytes % 16.4 %; Mean Corpuscular HGB Conc 31.8 g/dL (31.6-35.5); Mean Corpuscular Volume 88.1 fL (83.0-100.0); Monocytes # 0.7 K/mcL (0.0-1.3); Monocytes % 6.2 %; Neutrophils # 8.1 K/mcL (1.6-8.9); Platelet Count 216 K/mcL (140-400); Red Blood Count 4.79 M/mcL (4.19-5.50); Red Cell Distribution Width 13.1 % (11.5-14.5); Segmented Neutrophils % 74.8 %; White Blood Count 10.8 K/mcL (4.3-11.1)
[2020-03-08 21:26] LABS: Alanine Aminotransferase 36 Units/L (7-52); Albumin 3.7 g/dL (3.5-5.7); Albumin/Globulin Ratio 1.2 (1.1-2.2); Alkaline Phosphatase 71 Units/L (34-104); Aspartate Amino Transferase 54 Units/L (13-39); BUN/Creatinine Ratio 16 (6-26); Bilirubin,Direct 0.3 mg/dL (0.0-0.2); Bilirubin,Indirect 0.4 mg/dL (0.0-1.0); Bilirubin,Total 0.7 mg/dL (0.3-1.0); Blood Urea Nitrogen 20 mg/dL (8-23); Calcium 8.4 mg/dL (8.6-10.3); Carbon Dioxide 29 mEq/L (23-29); Chloride 105 mEq/L (98-107); Glucose 140 mg/dL (70-105); Lipase 24 Units/L (11-82); Osmolality,Calculated 299 (280-300); Potassium 3.4 mEq/L (3.5-5.1); Sodium 142 mEq/L (136-145); Total Protein 6.7 g/dL (6.4-8.9); eGFR For African Americans > 60 (> 60); eGFR For Non-African Americans 55 (> 60)
[2020-03-08 21:28] LABS: Troponin I 0.04 ng/mL (< 0.04)
[2020-03-08] MEDS ORDERED: Aspirin 325 MG TABLET PO ONE (22:00)
[2020-03-08] MEDS ORDERED: Naloxone 0.4 MG/ML INJ IVP PRN (23:24)
[2020-03-08] MEDS ORDERED: Ondansetron 4 MG/2 ML VIAL IVP PRN (23:24)
[2020-03-09 00:53] LABS: Bilirubin,Urine Negative (Negative); Blood,Urine Negative (Negative); Clarity,Urine Clear (Clear); Color,Urine Yellow (Yellow); Glucose,Urine (UA) Normal (Normal); Ketones,Urine Negative (Negative); Leukocyte Esterase,Urine Negative (Negative); Nitrite,Urine Negative (Negative); Protein,Urine Negative (Neg-Trace); Specific Gravity,Urine 1.015 (1.010-1.025)
[2020-03-09] MEDS ORDERED: Dextrose Gel 15 GM/37.5 ML TUBE PO PRN ×2 (01:20)
[2020-03-09] MEDS ORDERED: D5% in Water 1,000 ML IVC PRN (01:20)
[2020-03-09] MEDS ORDERED: *HR* Dextrose 50 % in Water (Vial) 50 ML VIAL IVP PRN (01:20)
[2020-03-09] MEDS: Melatonin 3 MG TABLET PO SCH ×2 (01:39→21:21)
[2020-03-09 03:04] LABS: Hematocrit 40.6 % (37.5-50.1); Hemoglobin 12.9 g/dL (12.9-16.9); Mean Corpuscular HGB Conc 31.8 g/dL (31.6-35.5); Mean Corpuscular Hemoglobin 28.6 pg (28.0-33.3); Platelet Count 186 K/mcL (140-400); Red Blood Count 4.51 M/mcL (4.19-5.50); Red Cell Distribution Width 13.2 % (11.5-14.5); White Blood Count 11.4 K/mcL (4.3-11.1)
[2020-03-09 03:30] LABS: Alanine Aminotransferase 78 Units/L (7-52); Albumin 3.7 g/dL (3.5-5.7); Albumin/Globulin Ratio 1.3 (1.1-2.2); Alkaline Phosphatase 77 Units/L (34-104); Aspartate Amino Transferase 107 Units/L (13-39); BUN/Creatinine Ratio 16 (6-26); Bilirubin,Total 0.9 mg/dL (0.3-1.0); Blood Urea Nitrogen 20 mg/dL (8-23); Calcium 8.4 mg/dL (8.6-10.3); Carbon Dioxide 29 mEq/L (23-29); Chloride 104 mEq/L (98-107); Globulin 2.8 g/dL (2.4-3.5); Glucose 133 mg/dL (70-105); Magnesium 1.7 mg/dL (1.6-2.6); Osmolality,Calculated 299 (280-300); Phosphorous 3.6 mg/dL (2.7-4.5); Potassium 3.2 mEq/L (3.5-5.1); Sodium 142 mEq/L (136-145); Total Protein 6.5 g/dL (6.4-8.9); eGFR For African Americans > 60 (> 60); eGFR For Non-African Americans 58 (> 60)
[2020-03-09 03:50] LABS: Troponin I 0.04 ng/mL (< 0.04)
[2020-03-09] MEDS: Insulin LISPRO 300 UNITS/3 ML VIAL SQ SCH ×3 (05:56→18:27)
[2020-03-09] MEDS ORDERED: *HR* Heparin 5,000 UNIT/ML VIAL SQ SCH (06:00)
[2020-03-09] MEDS ORDERED: Regadenoson 0.4 MG/5 ML SYRINGE IVP ONE (06:31)
[2020-03-09] MEDS ORDERED: Perflutren Lipid Microsphere 1.3 ML in 0.9 % Sodium Chloride 8.7 ML IVP PRN (09:13)
[2020-03-09] MEDS ORDERED: GI Cocktail 40 ML EACH PO ONE (10:26)
[2020-03-09 10:48] LABS: Troponin I 0.05 ng/mL (< 0.04)
[2020-03-09 15:48] LABS: Acetaminophen < 10 mcg/mL (10-20)
[2020-03-09 15:55] LABS: Hepatitis B Surface Antigen Nonreactive (Nonreactive)
[2020-03-09 16:25] LABS: Hepatitis B Core IgM Nonreactive (Nonreactive)
[2020-03-09 16:26] LABS: Hepatitis A Antibody IgM Nonreactive (Nonreactive); Hepatitis C Virus Antibody Nonreactive (Nonreactive)
[2020-03-09] MEDS: Pantoprazole 40 MG VIAL IVP SCH (18:28)
[2020-03-09] MEDS: Budesonide/Formoterol 160/4.5 1 PUFF INH IH SCH (20:24)
[2020-03-09] MEDS: Gabapentin 300 MG CAPSULE PO SCH (21:21)
[2020-03-09] MEDS: Apixaban 5 MG TABLET PO SCH (21:24)
[2020-03-10] MEDS: Insulin LISPRO 300 UNITS/3 ML VIAL SQ SCH ×2 (00:12→06:04)
[2020-03-10 05:40] LABS: Hematocrit 39.9 % (37.5-50.1); Hemoglobin 12.7 g/dL (12.9-16.9); Mean Corpuscular HGB Conc 31.8 g/dL (31.6-35.5); Mean Corpuscular Hemoglobin 28.1 pg (28.0-33.3); Mean Corpuscular Volume 88.3 fL (83.0-100.0); Mean Platelet Volume 9.5 fL (9.4-12.4); Platelet Count 172 K/mcL (140-400); Red Blood Count 4.52 M/mcL (4.19-5.50); Red Cell Distribution Width 13.2 % (11.5-14.5); White Blood Count 7.7 K/mcL (4.3-11.1)
[2020-03-10 05:56] LABS: BUN/Creatinine Ratio 14 (6-26); Blood Urea Nitrogen 15 mg/dL (8-23); Calcium 8.6 mg/dL (8.6-10.3); Carbon Dioxide 28 mEq/L (23-29); Chloride 105 mEq/L (98-107); Glucose 112 mg/dL (70-105); Osmolality,Calculated 296 (280-300); Potassium 3.4 mEq/L (3.5-5.1); Sodium 142 mEq/L (136-145); eGFR For African Americans > 60 (> 60); eGFR For Non-African Americans > 60 (> 60)
[2020-03-10 05:57] LABS: Albumin 3.5 g/dL (3.5-5.7); Albumin/Globulin Ratio 1.3 (1.1-2.2); Bilirubin,Direct 0.2 mg/dL (0.0-0.2); Bilirubin,Indirect 0.5 mg/dL (0.0-1.0); Bilirubin,Total 0.7 mg/dL (0.3-1.0); Globulin 2.6 g/dL (2.4-3.5); Total Protein 6.1 g/dL (6.4-8.9)
[2020-03-10] MEDS: Pantoprazole 40 MG VIAL IVP SCH (05:58)
[2020-03-10] MEDS: Budesonide/Formoterol 160/4.5 1 PUFF INH IH SCH (08:04)
[2020-03-10] MEDS: Gabapentin 300 MG CAPSULE PO SCH (08:17)
[2020-03-10] MEDS: Apixaban 5 MG TABLET PO SCH (08:17)
[2020-03-10] MEDS ORDERED: Finasteride 5 MG TABLET PO SCH (09:00)
[2020-03-10] MEDS ORDERED: Metoprolol XL (24 HR) Succ 50 MG TAB.ER.24H PO SCH (09:00)
[2020-03-10] MEDS ORDERED: Furosemide 40 MG TABLET PO SCH (09:00)
[2020-03-10] MEDS ORDERED: Spironolactone 25 MG TABLET PO SCH (09:00)
[2020-03-10] MEDS ORDERED: Potassium Chloride Elixir 20 MEQ/15 ML UDC PO ONE (10:30)
[2020-03-10] MEDS ORDERED: Potassium Chloride Elixir 20 MEQ/15 ML UDC PO SCH (10:30)
[2020-03-10] MEDS ORDERED: *HR* Dextrose 50 % in Water (Vial) 50 ML VIAL IVP PRN (11:07)
[2020-03-10] MEDS ORDERED: D5% in Water 1,000 ML IVC PRN (11:07)
[2020-03-10] MEDS ORDERED: Dextrose Gel 15 GM/37.5 ML TUBE PO PRN ×2 (11:07)
[2020-03-10] MEDS ORDERED: Insulin LISPRO 300 UNITS/3 ML VIAL SQ SCH ×2 (11:30→21:00)
[2020-03-10 14:18] VITALS: BP 139/76
== END 2020-03-10 15:24 | disposition home or self-care (01) ==
LOC: EMEROOARM 20:32 → 3NENU 20:32
PROVIDERS: ADMIT Family Medicine; ATTEND Family Medicine

== ENCOUNTER 2020-06-02 21:46 | Observation (INO) ==
[2020-06-02 22:07] LABS: Basophils # 0.1 K/mcL (0.0-0.2); Basophils % 0.5 %; Eosinophils % 0.1 %; Hematocrit 40.4 % (37.5-50.1); Hemoglobin 12.8 g/dL (12.9-16.9); Immature Granulocytes % 0.5 % (0-4); Lymphocytes # 1.7 K/mcL (0.6-4.6); Lymphocytes % 15.3 %; Mean Corpuscular HGB Conc 31.7 g/dL (31.6-35.5); Mean Corpuscular Hemoglobin 27.5 pg (28.0-33.3); Mean Corpuscular Volume 86.9 fL (83.0-100.0); Mean Platelet Volume 9.5 fL (9.4-12.4); Monocytes # 0.7 K/mcL (0.0-1.3); Neutrophils # 8.6 K/mcL (1.6-8.9); Platelet Count 205 K/mcL (140-400); Red Blood Count 4.65 M/mcL (4.19-5.50); Red Cell Distribution Width 14.2 % (11.5-14.5); Segmented Neutrophils % 77.6 %; White Blood Count 11.1 K/mcL (4.3-11.1)
[2020-06-02 22:31] LABS: BUN/Creatinine Ratio 11 (6-26); Blood Urea Nitrogen 9 mg/dL (8-23); Calcium 8.7 mg/dL (8.6-10.3); Carbon Dioxide 34 mEq/L (23-29); Chloride 99 mEq/L (98-107); Glucose 121 mg/dL (70-105); Osmolality,Calculated 296 (280-300); Potassium 2.6 mEq/L (3.5-5.1); Sodium 143 mEq/L (136-145); eGFR For African Americans > 60 (> 60); eGFR For Non-African Americans > 60 (> 60)
[2020-06-02 22:44] LABS: Troponin I 0.06 ng/mL (< 0.04)
[2020-06-02] MEDS ORDERED: Isovue-370 500 ML BOTTLE IVP ONE (23:06)
[2020-06-02] MEDS ORDERED: Aspirin 81 MG TAB.CHEW PO ONE (23:14)
[2020-06-03] MEDS ORDERED: Isovue-370 500 ML BOTTLE IVP ONE (00:06)
[2020-06-03 00:43] LABS: Alanine Aminotransferase 27 Units/L (7-52); Albumin 3.5 g/dL (3.5-5.7); Albumin/Globulin Ratio 1.1 (1.1-2.2); Alkaline Phosphatase 50 Units/L (34-104); Aspartate Amino Transferase 36 Units/L (13-39); Bilirubin,Direct 0.2 mg/dL (0.0-0.2); Bilirubin,Indirect 0.4 mg/dL (0.0-1.0); Bilirubin,Total 0.6 mg/dL (0.3-1.0); Globulin 3.1 g/dL (2.4-3.5); Lipase 16 Units/L (11-82); Total Protein 6.6 g/dL (6.4-8.9)
[2020-06-03] MEDS ORDERED: D5% in Water 1,000 ML IVC PRN ×2 (02:41→18:40)
[2020-06-03] MEDS ORDERED: Acetaminophen 325 MG TABLET PO PRN ×2 (02:41→17:39)
[2020-06-03] MEDS ORDERED: *HR* Dextrose 50 % in Water (Vial) 50 ML VIAL IVP PRN ×2 (02:41→18:40)
[2020-06-03] MEDS ORDERED: Ondansetron 4 MG/2 ML VIAL IVP PRN (02:41)
[2020-06-03] MEDS ORDERED: Naloxone 0.4 MG/ML INJ IVP PRN (02:41)
[2020-06-03] MEDS ORDERED: Dextrose Gel 15 GM/37.5 ML TUBE PO PRN ×4 (02:41→18:40)
[2020-06-03] MEDS: Insulin LISPRO 300 UNITS/3 ML VIAL SUBQ SCH ×3 (07:53→16:54)
[2020-06-03 07:59] LABS: BUN/Creatinine Ratio 11 (6-26); Blood Urea Nitrogen 9 mg/dL (8-23); Calcium 8.4 mg/dL (8.6-10.3); Carbon Dioxide 32 mEq/L (23-29); Chloride 101 mEq/L (98-107); Glucose 95 mg/dL (70-105); Osmolality,Calculated 292 (280-300); Potassium 2.7 mEq/L (3.5-5.1); Sodium 142 mEq/L (136-145); eGFR For African Americans > 60 (> 60); eGFR For Non-African Americans > 60 (> 60)
[2020-06-03 08:08] LABS: Troponin I 0.08 ng/mL (< 0.04)
[2020-06-03] MEDS ORDERED: *HR* Heparin 5,000 UNIT/ML VIAL IVP ONE (08:24)
[2020-06-03] MEDS ORDERED: *HR* Heparin 5,000 UNIT/ML VIAL IVP PRN (08:24)
[2020-06-03] MEDS ORDERED: Nitroglycerin 0.4 MG TAB.SUBL SL PRN ×2 (08:25→17:39)
[2020-06-03 09:22] LABS: Hematocrit 39.8 % (37.5-50.1); Hemoglobin 12.9 g/dL (12.9-16.9); Mean Corpuscular HGB Conc 32.4 g/dL (31.6-35.5); Mean Corpuscular Volume 86.3 fL (83.0-100.0); Mean Platelet Volume 9.8 fL (9.4-12.4); Platelet Count 208 K/mcL (140-400); Red Blood Count 4.61 M/mcL (4.19-5.50); Red Cell Distribution Width 14.4 % (11.5-14.5); White Blood Count 12.1 K/mcL (4.3-11.1)
[2020-06-03 09:30] LABS: INR 1.1; Prothrombin Time 13.1 Seconds (9.4-12.1)
[2020-06-03 09:33] LABS: Heparin anti-factor XA UFH < 0.04 IU/mL (0.30-0.70)
[2020-06-03] MEDS: Heparin 25,000UNIT/250ML 1/2NS 25,000 UNIT/250 ML IV.SOLN IVC SCH (09:36)
[2020-06-03] MEDS: *HR* Heparin 5,000 UNIT/ML VIAL IVP PRN (19:09)
[2020-06-03] MEDS ORDERED: ATORVASTATIN CALCIUM 10 MG PO SCH (21:00)
[2020-06-03] MEDS: Cyanocobalamin (B-12) 1,000 MCG TABLET PO SCH (22:19)
[2020-06-03] MEDS: Melatonin 3 MG TABLET PO SCH (22:19)
[2020-06-04 01:31] LABS: Basophils # 0.1 K/mcL (0.0-0.2); Basophils % 0.6 %; Eosinophils # 0.1 K/mcL (0.0-0.6); Eosinophils % 1.1 %; Hematocrit 35.9 % (37.5-50.1); Hemoglobin 11.4 g/dL (12.9-16.9); Immature Granulocytes % 0.6 % (0-4); Lymphocytes # 2.3 K/mcL (0.6-4.6); Lymphocytes % 21.6 %; Mean Corpuscular HGB Conc 31.8 g/dL (31.6-35.5); Mean Corpuscular Hemoglobin 27.8 pg (28.0-33.3); Mean Corpuscular Volume 87.6 fL (83.0-100.0); Mean Platelet Volume 9.7 fL (9.4-12.4); Monocytes # 0.8 K/mcL (0.0-1.3); Monocytes % 7.7 %; Neutrophils # 7.3 K/mcL (1.6-8.9); Platelet Count 193 K/mcL (140-400); Red Cell Distribution Width 14.4 % (11.5-14.5); Segmented Neutrophils % 68.4 %; White Blood Count 10.7 K/mcL (4.3-11.1)
[2020-06-04 01:39] LABS: BUN/Creatinine Ratio 15 (6-26); Blood Urea Nitrogen 11 mg/dL (8-23); Calcium 8.3 mg/dL (8.6-10.3); Carbon Dioxide 31 mEq/L (23-29); Chloride 101 mEq/L (98-107); Glucose 97 mg/dL (70-105); Magnesium 1.9 mg/dL (1.6-2.6); Osmolality,Calculated 291 (280-300); Potassium 2.7 mEq/L (3.5-5.1); Sodium 141 mEq/L (136-145); eGFR For African Americans > 60 (> 60); eGFR For Non-African Americans > 60 (> 60)
[2020-06-04] MEDS: Heparin 25,000UNIT/250ML 1/2NS 25,000 UNIT/250 ML IV.SOLN IVC SCH (07:29)
[2020-06-04] MEDS: Aspirin Enteric Coated 81 MG Tablet PO SCH (07:31)
[2020-06-04] MEDS: Spironolactone 25 MG TABLET PO SCH (07:31)
[2020-06-04] MEDS: Cyanocobalamin (B-12) 1,000 MCG TABLET PO SCH ×2 (07:31→19:56)
[2020-06-04] MEDS: Pyridoxine (B-6) 50 MG TABLET PO SCH (07:31)
[2020-06-04] MEDS: Insulin LISPRO 300 UNITS/3 ML VIAL SUBQ SCH ×3 (07:41→17:17)
[2020-06-04] MEDS ORDERED: Aspirin Enteric Coated 81 MG Tablet PO SCH (09:00)
[2020-06-04 09:03] LABS: Estimated Average Glucose 146 mg/dl; Hemoglobin A1C 6.7 %
[2020-06-04] MEDS ORDERED: Potassium Chloride 40 MEQ, Lidocaine 1% 2 ML in 0.9 % Sodium Chloride 500 ML IVPB ONE (09:07)
[2020-06-04] MEDS: *HR* Heparin 5,000 UNIT/ML VIAL IVP PRN (09:47)
[2020-06-04] MEDS: Furosemide 40 MG/4 ML VIAL IVP SCH (19:55)
[2020-06-04] MEDS: Dexamethasone 4 MG/ML VIAL IVP SCH (19:55)
[2020-06-04] MEDS: Melatonin 3 MG TABLET PO SCH (19:56)
[2020-06-05 06:52] LABS: Basophils % 0.2 %; Hematocrit 38.6 % (37.5-50.1); Hemoglobin 12.6 g/dL (12.9-16.9); Immature Granulocytes % 0.8 % (0-4); Lymphocytes # 1.1 K/mcL (0.6-4.6); Mean Corpuscular HGB Conc 32.6 g/dL (31.6-35.5); Mean Corpuscular Hemoglobin 28.4 pg (28.0-33.3); Mean Corpuscular Volume 86.9 fL (83.0-100.0); Monocytes # 0.4 K/mcL (0.0-1.3); Monocytes % 4.9 %; Neutrophils # 7.1 K/mcL (1.6-8.9); Platelet Count 199 K/mcL (140-400); Red Blood Count 4.44 M/mcL (4.19-5.50); Red Cell Distribution Width 14.3 % (11.5-14.5); Segmented Neutrophils % 81.1 %; White Blood Count 8.8 K/mcL (4.3-11.1)
[2020-06-05 07:00] LABS: Fibrinogen 421 mg/dL (169-393)
[2020-06-05] MEDS ORDERED: *HR* Enoxaparin 40 MG/0.4 ML SYRINGE SQ SCH (07:00)
[2020-06-05 07:03] LABS: D-Dimer 523 ng/mLFEU (0-500)
[2020-06-05 07:09] LABS: BUN/Creatinine Ratio 19 (6-26); Blood Urea Nitrogen 15 mg/dL (8-23); Carbon Dioxide 34 mEq/L (23-29); Chloride 101 mEq/L (98-107); Glucose 138 mg/dL (70-105); Magnesium 1.8 mg/dL (1.6-2.6); Osmolality,Calculated 301 (280-300); Potassium 3.3 mEq/L (3.5-5.1); Sodium 144 mEq/L (136-145); eGFR For African Americans > 60 (> 60); eGFR For Non-African Americans > 60 (> 60)
[2020-06-05] MEDS ORDERED: amLODIPine 5 MG TABLET PO SCH (09:00)
[2020-06-05] MEDS: Aspirin Enteric Coated 81 MG Tablet PO SCH (09:16)
[2020-06-05] MEDS: Pyridoxine (B-6) 50 MG TABLET PO SCH (09:16)
[2020-06-05] MEDS: Cyanocobalamin (B-12) 1,000 MCG TABLET PO SCH (09:16)
[2020-06-05] MEDS: Spironolactone 25 MG TABLET PO SCH (09:16)
[2020-06-05] MEDS: Dexamethasone 4 MG/ML VIAL IVP SCH (09:18)
[2020-06-05] MEDS: Furosemide 40 MG/4 ML VIAL IVP SCH (09:18)
[2020-06-05] MEDS: Insulin LISPRO 300 UNITS/3 ML VIAL SUBQ SCH ×2 (09:19→12:29)
[2020-06-05 10:45] VITALS: BP 149/71
== END 2020-06-05 17:33 | disposition home or self-care (01) ==
LOC: CDU 21:46 → EMEROOARM 21:46 → SUATTDRO 06-03 01:50 → CDU 06-03 03:46 → 3BNU 06-03 18:21
PROVIDERS: ADMIT Student in an Organized Health Care Education/Training Program; ATTEND Pharmacist

== ENCOUNTER 2020-08-05 18:55 | Inpatient (IN) ==
[2020-08-05] MEDS ORDERED: 0.9 % Sodium Chloride 500 ML IVC ONE (19:08)
[2020-08-05] MEDS ORDERED: Ondansetron 4 MG/2 ML VIAL IVP ONE (19:08)
[2020-08-05] MEDS ORDERED: Isovue-370 500 ML BOTTLE IVP ONE (19:14)
[2020-08-05 19:38] LABS: Basophils % 0.2 %; Eosinophils % 0.1 %; Hematocrit 39.5 % (37.5-50.1); Hemoglobin 12.6 g/dL (12.9-16.9); Immature Granulocytes % 0.4 % (0-4); Lymphocytes # 1.2 K/mcL (0.6-4.6); Lymphocytes % 10.2 %; Mean Corpuscular HGB Conc 31.9 g/dL (31.6-35.5); Mean Corpuscular Hemoglobin 27.5 pg (28.0-33.3); Mean Corpuscular Volume 86.2 fL (83.0-100.0); Mean Platelet Volume 10.1 fL (9.4-12.4); Monocytes # 0.6 K/mcL (0.0-1.3); Monocytes % 4.8 %; Neutrophils # 9.9 K/mcL (1.6-8.9); Platelet Count 234 K/mcL (140-400); Red Blood Count 4.58 M/mcL (4.19-5.50); Segmented Neutrophils % 84.3 %; White Blood Count 11.8 K/mcL (4.3-11.1)
[2020-08-05 20:05] LABS: Alanine Aminotransferase 16 Units/L (7-52); Albumin 3.7 g/dL (3.5-5.7); Albumin/Globulin Ratio 1.1 (1.1-2.2); Alkaline Phosphatase 59 Units/L (34-104); Aspartate Amino Transferase 22 Units/L (13-39); BUN/Creatinine Ratio 16 (6-26); Bilirubin,Direct 0.2 mg/dL (0.0-0.2); Bilirubin,Indirect 0.4 mg/dL (0.0-1.0); Bilirubin,Total 0.6 mg/dL (0.3-1.0); Blood Urea Nitrogen 15 mg/dL (8-23); Calcium 9.1 mg/dL (8.6-10.3); Carbon Dioxide 31 mEq/L (23-29); Chloride 103 mEq/L (98-107); Globulin 3.4 g/dL (2.4-3.5); Glucose 219 mg/dL (70-105); Lipase 11 Units/L (11-82); Osmolality,Calculated 302 (280-300); Potassium 3.3 mEq/L (3.5-5.1); Sodium 142 mEq/L (136-145); Total Protein 7.1 g/dL (6.4-8.9); Troponin I 0.05 ng/mL (< 0.04); eGFR For African Americans > 60 (> 60); eGFR For Non-African Americans > 60 (> 60)
[2020-08-05 21:39] LABS: Bacteria,Urine Few per hpf (None-Few); Bilirubin,Urine Negative (Negative); Blood,Urine Negative (Negative); Clarity,Urine Clear (Clear); Color,Urine Yellow (Yellow); Glucose,Urine (UA) Normal (Normal); Ketones,Urine Negative (Negative); Leukocyte Esterase,Urine Negative (Negative); Mucus,Urine Many per lpf (None-Few); Nitrite,Urine Negative (Negative); Protein,Urine 50 mg/dL (Neg-Trace); Specific Gravity,Urine > 1.030 (1.010-1.025); Squamous Epithelial Cell,Urine Few per hpf (None-Few); WBC,Urine 0-3 per hpf (0-3)
[2020-08-05] MEDS ORDERED: Ondansetron 4 MG/2 ML VIAL IVP PRN (22:22)
[2020-08-05] MEDS ORDERED: Acetaminophen 325 MG TABLET PO PRN (22:22)
[2020-08-05] MEDS ORDERED: Naloxone 0.4 MG/ML INJ IVP PRN (22:22)
[2020-08-05] MEDS ORDERED: Melatonin 3 MG TABLET PO PRN (22:33)
[2020-08-05] MEDS ORDERED: Dextrose Gel 15 GM/37.5 ML TUBE PO PRN ×2 (22:48)
[2020-08-05] MEDS ORDERED: *HR* Dextrose 50 % in Water (Vial) 50 ML VIAL IVP PRN (22:48)
[2020-08-05] MEDS ORDERED: D5% in Water 1,000 ML IVC PRN (22:48)
[2020-08-05] MEDS: *HR* HYDROcodone/Acet 5/325 mg TABLET PO PRN (23:56)
[2020-08-05] MEDS: Insulin LISPRO 300 UNITS/3 ML VIAL SUBQ SCH (23:59)
[2020-08-06 02:38] LABS: Basophils # 0.1 K/mcL (0.0-0.2); Basophils % 0.5 %; Eosinophils % 0.4 %; Hematocrit 38.4 % (37.5-50.1); Immature Granulocytes % 0.4 % (0-4); Lymphocytes # 2.3 K/mcL (0.6-4.6); Lymphocytes % 23.6 %; Mean Corpuscular HGB Conc 31.3 g/dL (31.6-35.5); Mean Corpuscular Hemoglobin 27.6 pg (28.0-33.3); Mean Corpuscular Volume 88.3 fL (83.0-100.0); Mean Platelet Volume 10.1 fL (9.4-12.4); Monocytes # 0.7 K/mcL (0.0-1.3); Neutrophils # 6.7 K/mcL (1.6-8.9); Platelet Count 201 K/mcL (140-400); Red Blood Count 4.35 M/mcL (4.19-5.50); Red Cell Distribution Width 14.1 % (11.5-14.5); Segmented Neutrophils % 68.1 %; White Blood Count 9.9 K/mcL (4.3-11.1)
[2020-08-06 02:39] LABS: INR 1.2; Prothrombin Time 13.9 Seconds (9.4-12.1)
[2020-08-06 02:58] LABS: BUN/Creatinine Ratio 15 (6-26); Blood Urea Nitrogen 15 mg/dL (8-23); Calcium 8.8 mg/dL (8.6-10.3); Carbon Dioxide 32 mEq/L (23-29); Chloride 105 mEq/L (98-107); Chol/HDL Ratio 2.5 (0-4.9); Cholesterol 101 mg/dL (< 200); Glucose 99 mg/dL (70-105); HDL Cholesterol 41 mg/dL (40-59); LDL Cholesterol,Calculated 45 mg/dL (< 100); Osmolality,Calculated 299 (280-300); Potassium 3.4 mEq/L (3.5-5.1); Sodium 144 mEq/L (136-145); Triglycerides 73 mg/dL (< 150); eGFR For African Americans > 60 (> 60); eGFR For Non-African Americans > 60 (> 60)
[2020-08-06] MEDS: Insulin LISPRO 300 UNITS/3 ML VIAL SUBQ SCH ×4 (05:29→22:47)
[2020-08-06] MEDS: Aspirin Enteric Coated 81 MG Tablet PO SCH (08:39)
[2020-08-06] MEDS: amLODIPine 5 MG TABLET PO SCH (08:39)
[2020-08-06] MEDS ORDERED: Ringers Solution, Lactated 1,000 ML IVC SCH (13:15)
[2020-08-06] MEDS ORDERED: Perflutren Lipid Microsphere 1.3 ML in 0.9 % Sodium Chloride 8.7 ML IVP PRN (14:38)
[2020-08-06] MEDS ORDERED: Nitroglycerin 0.4 MG TAB.SUBL SL PRN (18:14)
[2020-08-06] MEDS: Budesonide/Formoterol 160/4.5 1 PUFF INH IH SCH (20:21)
[2020-08-06] MEDS: *HR* Heparin 5,000 UNIT/ML VIAL SQ SCH (20:56)
[2020-08-06] MEDS: Cyanocobalamin (B-12) 1,000 MCG TABLET PO SCH (20:59)
[2020-08-06] MEDS: *HR* HYDROcodone/Acet 5/325 mg TABLET PO PRN (21:04)
[2020-08-07] MEDS: Insulin LISPRO 300 UNITS/3 ML VIAL SUBQ SCH ×2 (05:43→14:14)
[2020-08-07] MEDS: *HR* Heparin 5,000 UNIT/ML VIAL SQ SCH ×2 (05:44→16:38)
[2020-08-07] MEDS ORDERED: Regadenoson 0.4 MG/5 ML SYRINGE IVP ONE (06:18)
[2020-08-07 07:05] LABS: BUN/Creatinine Ratio 14 (6-26); Blood Urea Nitrogen 12 mg/dL (8-23); Calcium 8.7 mg/dL (8.6-10.3); Carbon Dioxide 30 mEq/L (23-29); Chloride 103 mEq/L (98-107); Glucose 101 mg/dL (70-105); Osmolality,Calculated 294 (280-300); Phosphorous 2.9 mg/dL (2.7-4.5); Potassium 3.5 mEq/L (3.5-5.1); Sodium 142 mEq/L (136-145); eGFR For African Americans > 60 (> 60); eGFR For Non-African Americans > 60 (> 60)
[2020-08-07] MEDS: Budesonide/Formoterol 160/4.5 1 PUFF INH IH SCH ×2 (09:59→19:36)
[2020-08-07] MEDS: amLODIPine 5 MG TABLET PO SCH (09:59)
[2020-08-07] MEDS: Aspirin Enteric Coated 81 MG Tablet PO SCH (10:00)
[2020-08-07] MEDS: Metoprolol XL (24 HR) Succ 50 MG TAB.ER.24H PO SCH (10:00)
[2020-08-07] MEDS: Pyridoxine (B-6) 50 MG TABLET PO SCH (10:01)
[2020-08-07] MEDS: Cyanocobalamin (B-12) 1,000 MCG TABLET PO SCH ×2 (10:01→20:32)
[2020-08-07] MEDS: Thiamine (B-1) 100 MG TABLET PO SCH (10:01)
[2020-08-07] MEDS: hydrALAZINE 25 MG TABLET PO SCH ×2 (16:38→23:51)
[2020-08-08] MEDS: *HR* Heparin 5,000 UNIT/ML VIAL SQ SCH (05:54)
[2020-08-08] MEDS: Budesonide/Formoterol 160/4.5 1 PUFF INH IH SCH (07:58)
[2020-08-08] MEDS: Metoprolol XL (24 HR) Succ 50 MG TAB.ER.24H PO SCH (08:13)
[2020-08-08] MEDS: Pyridoxine (B-6) 50 MG TABLET PO SCH (08:13)
[2020-08-08] MEDS: Cyanocobalamin (B-12) 1,000 MCG TABLET PO SCH (08:14)
[2020-08-08] MEDS: Thiamine (B-1) 100 MG TABLET PO SCH (08:14)
[2020-08-08] MEDS: Aspirin Enteric Coated 81 MG Tablet PO SCH (08:14)
[2020-08-08] MEDS: amLODIPine 5 MG TABLET PO SCH (08:14)
[2020-08-08] MEDS ORDERED: Spironolactone 25 MG TABLET PO SCH (09:00)
[2020-08-08] MEDS ORDERED: Furosemide 40 MG TABLET PO SCH (09:00)
[2020-08-08] MEDS ORDERED: Cholecalciferol (D-3) 1,000 UNIT (25MCG) TABLET PO SCH (09:00)
[2020-08-08 10:34] VITALS: BP 135/65
[2020-08-08] MEDS ORDERED: hydrALAZINE 25 MG TABLET PO SCH (16:00)
== END 2020-08-08 12:31 | disposition home health service (06) | DRG 392 ==
LOC: EMEROOARM 18:55 → 3ANU 18:55 → SUATTDRO 21:49 → 3ANU 22:36
PROVIDERS: ADMIT Internal Medicine; ATTEND Internal Medicine

== ENCOUNTER 2020-09-20 15:47 | Observation (INO) ==
[2020-09-20 16:55] LABS: Basophils # 0.1 K/mcL (0.0-0.2); Basophils % 0.6 %; Eosinophils # 0.1 K/mcL (0.0-0.6); Eosinophils % 0.8 %; Hematocrit 41.5 % (37.5-50.1); Hemoglobin 13.2 g/dL (12.9-16.9); Immature Granulocytes % 0.6 % (0-4); Lymphocytes % 18.3 %; Mean Corpuscular HGB Conc 31.8 g/dL (31.6-35.5); Mean Corpuscular Hemoglobin 27.8 pg (28.0-33.3); Mean Corpuscular Volume 87.4 fL (83.0-100.0); Mean Platelet Volume 10.1 fL (9.4-12.4); Monocytes # 0.9 K/mcL (0.0-1.3); Monocytes % 8.7 %; Neutrophils # 7.7 K/mcL (1.6-8.9); Platelet Count 233 K/mcL (140-400); Red Blood Count 4.75 M/mcL (4.19-5.50); Red Cell Distribution Width 14.2 % (11.5-14.5); White Blood Count 10.9 K/mcL (4.3-11.1)
[2020-09-20 17:11] LABS: INR 1.2; Prothrombin Time 14.2 Seconds (9.4-12.1)
[2020-09-20 17:14] LABS: Activated Partial Thrombo Time 28.4 Seconds (26.0-36.0)
[2020-09-20 17:15] LABS: Calcium 9.2 mg/dL (8.6-10.3); Potassium 4.8 mEq/L (3.5-5.1)
[2020-09-20 17:22] LABS: Troponin I 0.05 ng/mL (< 0.04)
[2020-09-20] MEDS: 0.9 % Sodium Chloride 1,000 ML IVC SCH (18:40)
[2020-09-20] MEDS ORDERED: Ondansetron 4 MG/2 ML VIAL IVP PRN (19:27)
[2020-09-20] MEDS ORDERED: Naloxone 0.4 MG/ML INJ IVP PRN (19:27)
[2020-09-20] MEDS ORDERED: Acetaminophen 325 MG TABLET PO PRN (19:27)
[2020-09-20] MEDS ORDERED: Melatonin 3 MG TABLET PO PRN (21:00)
[2020-09-20] MEDS ORDERED: *HR* Dextrose 50 % in Water (Vial) 50 ML VIAL IVP PRN (21:40)
[2020-09-20] MEDS ORDERED: Dextrose Gel 15 GM/37.5 ML TUBE PO PRN ×2 (21:40)
[2020-09-20] MEDS ORDERED: D5% in Water 1,000 ML IVC PRN (21:40)
[2020-09-20] MEDS: Insulin LISPRO 300 UNITS/3 ML VIAL SUBQ SCH (22:06)
[2020-09-20 22:24] LABS: Estimated Average Glucose 134 mg/dl; Hemoglobin A1C 6.3 %
[2020-09-20 22:54] LABS: Folate 11.6 ng/mL (3.0-16.0)
[2020-09-20] MEDS: Budesonide/Formoterol 160/4.5 1 PUFF INH IH SCH (23:12)
[2020-09-21] MEDS: 0.9 % Sodium Chloride 1,000 ML IVC SCH (03:58)
[2020-09-21] MEDS: *HR* Heparin 5,000 UNIT/ML VIAL SQ SCH ×2 (03:59→18:29)
[2020-09-21 05:48] LABS: Alanine Aminotransferase 28 Units/L (7-52); Albumin 3.4 g/dL (3.5-5.7); Albumin/Globulin Ratio 1.1 (1.1-2.2); Alkaline Phosphatase 55 Units/L (34-104); Aspartate Amino Transferase 49 Units/L (13-39); BUN/Creatinine Ratio 21 (6-26); Bilirubin,Total 0.6 mg/dL (0.3-1.0); Blood Urea Nitrogen 25 mg/dL (8-23); Calcium 8.3 mg/dL (8.6-10.3); Carbon Dioxide 21 mEq/L (23-29); Chloride 101 mEq/L (98-107); Chol/HDL Ratio 2.9 (0-4.9); Cholesterol 115 mg/dL (< 200); Globulin 3.1 g/dL (2.4-3.5); Glucose 72 mg/dL (70-105); HDL Cholesterol 39 mg/dL (40-59); LDL Cholesterol,Calculated 59 mg/dL (< 100); Osmolality,Calculated 279 (280-300); Potassium 4.4 mEq/L (3.5-5.1); Sodium 133 mEq/L (136-145); Total Protein 6.5 g/dL (6.4-8.9); Triglycerides 83 mg/dL (< 150); Troponin I 0.05 ng/mL (< 0.04); eGFR For African Americans > 60 (> 60); eGFR For Non-African Americans 59 (> 60)
[2020-09-21] MEDS: Insulin LISPRO 300 UNITS/3 ML VIAL SUBQ SCH ×4 (08:21→20:25)
[2020-09-21] MEDS: Aspirin Enteric Coated 81 MG Tablet PO SCH (08:36)
[2020-09-21] MEDS ORDERED: Furosemide 40 MG TABLET PO SCH (09:00)
[2020-09-21] MEDS: Budesonide/Formoterol 160/4.5 1 PUFF INH IH SCH ×2 (10:41→19:27)
[2020-09-21] MEDS ORDERED: Isovue-370 500 ML BOTTLE IVP ONE (16:05)
[2020-09-21] MEDS ORDERED: 0.9 % Sodium Chloride 1,000 ML IVC SCH (16:15)
[2020-09-21 17:00] LABS: ABG Base Excess -1 mEq/L (-2 to 3); ABG HCO3 25 mEq/L (21-27); ABG Oxygen Saturation 98 % (95-98); ABG PCO2 46 mmHg (35-45); ABG PH 7.35 pH Units (7.32-7.45); ABG PO2 109 mmHg (85-104); ABG TCO2 27 mEq/L (20-26)
[2020-09-21] MEDS: Doxycycline 100 MG in 0.9 % Sodium Chloride Mini Bag 100 ML IVPB SCH (17:33)
[2020-09-21] MEDS ORDERED: Melatonin 3 MG TABLET PO SCH (21:00)
[2020-09-22] MEDS: *HR* Heparin 5,000 UNIT/ML VIAL SQ SCH ×3 (05:14→17:33)
[2020-09-22] MEDS: Doxycycline 100 MG in 0.9 % Sodium Chloride Mini Bag 100 ML IVPB SCH ×2 (05:18→17:33)
[2020-09-22] MEDS: Budesonide/Formoterol 160/4.5 1 PUFF INH IH SCH ×2 (07:37→20:33)
[2020-09-22] MEDS: Insulin LISPRO 300 UNITS/3 ML VIAL SUBQ SCH ×4 (08:16→20:32)
[2020-09-22] MEDS: Metoprolol XL (24 HR) Succ 50 MG TAB.ER.24H PO SCH (08:24)
[2020-09-22] MEDS: Aspirin Enteric Coated 81 MG Tablet PO SCH (08:24)
[2020-09-22 11:15] LABS: Bacteria,Urine Few per hpf (None-Few); Bilirubin,Urine Negative (Negative); Blood,Urine Trace (Negative); Clarity,Urine Clear (Clear); Color,Urine Light-Yellow (Yellow); Glucose,Urine (UA) Normal (Normal); Ketones,Urine 40 mg/dL (Negative); Leukocyte Esterase,Urine Moderate (Negative); Mucus,Urine Few per lpf (None-Few); Nitrite,Urine Negative (Negative); Protein,Urine Trace mg/dL (Neg-Trace); RBC,Urine 0-3 per hpf (0-3); Specific Gravity,Urine 1.029 (1.010-1.025); Squamous Epithelial Cell,Urine Few per hpf (None-Few); Urobilinogen,Urine Normal (Normal); WBC,Urine 30-50 per hpf (0-3)
[2020-09-23] MEDS: Doxycycline 100 MG in 0.9 % Sodium Chloride Mini Bag 100 ML IVPB SCH ×2 (05:28→17:58)
[2020-09-23] MEDS: *HR* Heparin 5,000 UNIT/ML VIAL SQ SCH ×2 (05:29→18:00)
[2020-09-23] MEDS: Insulin LISPRO 300 UNITS/3 ML VIAL SUBQ SCH ×4 (07:14→20:43)
[2020-09-23] MEDS: Budesonide/Formoterol 160/4.5 1 PUFF INH IH SCH ×2 (07:59→19:46)
[2020-09-23] MEDS: Aspirin Enteric Coated 81 MG Tablet PO SCH (08:54)
[2020-09-23] MEDS: Metoprolol XL (24 HR) Succ 50 MG TAB.ER.24H PO SCH (08:55)
[2020-09-24] MEDS: *HR* Heparin 5,000 UNIT/ML VIAL SQ SCH (06:00)
[2020-09-24] MEDS: Doxycycline 100 MG in 0.9 % Sodium Chloride Mini Bag 100 ML IVPB SCH (07:13)
[2020-09-24 07:23] VITALS: BP 158/64
[2020-09-24] MEDS: Insulin LISPRO 300 UNITS/3 ML VIAL SUBQ SCH ×3 (07:27→14:31)
[2020-09-24] MEDS: Budesonide/Formoterol 160/4.5 1 PUFF INH IH SCH (07:32)
[2020-09-24] MEDS: Metoprolol XL (24 HR) Succ 50 MG TAB.ER.24H PO SCH (10:49)
[2020-09-24] MEDS: Aspirin Enteric Coated 81 MG Tablet PO SCH (10:49)
[2020-09-24 13:07] LABS: Adenovirus Not Detected (Not Detect); Bordetella Pertussis Not Detected (Not Detect); Chlamydophila pneumoniae Not Detected (Not Detect); Coronavirus 229E Not Detected (Not Detect); Coronavirus HKU1 Not Detected (Not Detect); Coronavirus NL63 Not Detected (Not Detect); Coronavirus OC43 Not Detected (Not Detect); Human Metapneumovirus Not Detected (Not Detect); Human Rhinovirus/Enterovirus Not Detected (Not Detect); Influenza A Subtype 2009 H1 Not Detected (Not Detect); Influenza B Not Detected (Not Detect); Mycoplasma pneumoniae Not Detected (Not Detect); Parainfluenza Virus 1 Not Detected (Not Detect); Parainfluenza Virus 2 Not Detected (Not Detect); Parainfluenza Virus 3 Not Detected (Not Detect); Parainfluenza Virus 4 Not Detected (Not Detect); Respiratory Syncytial Virus Not Detected (Not Detect); SARS-CoV-2 Not Detected (Not Detect)
== END 2020-09-24 14:36 ==
LOC: 3BNU 15:47 → EMEROOARM 15:47 → SUATTDRO 19:27 → 3BNU 20:49
PROVIDERS: ADMIT Internal Medicine; ATTEND Internal Medicine

== ENCOUNTER 2020-12-31 18:23 | Observation (INO) ==
[2020-12-31] MEDS ORDERED: 0.9 % Sodium Chloride 1,000 ML IVC ONE (19:28)
[2020-12-31 20:24] LABS: Basophils % 0.2 %; Hematocrit 41.9 % (37.5-50.1); Hemoglobin 13.7 g/dL (12.9-16.9); Immature Granulocytes % 0.6 % (0-4); Lymphocytes # 1.2 K/mcL (0.6-4.6); Lymphocytes % 9.5 %; Mean Corpuscular HGB Conc 32.7 g/dL (31.6-35.5); Mean Corpuscular Hemoglobin 28.5 pg (28.0-33.3); Mean Corpuscular Volume 87.1 fL (83.0-100.0); Mean Platelet Volume 10.2 fL (9.4-12.4); Monocytes # 1.1 K/mcL (0.0-1.3); Monocytes % 8.8 %; Neutrophils # 10.2 K/mcL (1.6-8.9); Platelet Count 171 K/mcL (140-400); Red Blood Count 4.81 M/mcL (4.19-5.50); Red Cell Distribution Width 14.1 % (11.5-14.5); Segmented Neutrophils % 80.9 %; White Blood Count 12.6 K/mcL (4.3-11.1)
[2020-12-31 20:36] LABS: INR 1.1; Prothrombin Time 12.6 Seconds (9.4-12.1)
[2020-12-31 20:38] LABS: Activated Partial Thrombo Time 26.4 Seconds (26.0-36.0)
[2020-12-31 20:54] LABS: Alanine Aminotransferase 38 Units/L (7-52); Albumin 3.4 g/dL (3.5-5.7); Alkaline Phosphatase 59 Units/L (34-104); Aspartate Amino Transferase 60 Units/L (13-39); BUN/Creatinine Ratio 22 (6-26); Bilirubin,Direct 0.1 mg/dL (0.0-0.2); Bilirubin,Indirect 0.6 mg/dL (0.0-1.0); Bilirubin,Total 0.7 mg/dL (0.3-1.0); Blood Urea Nitrogen 22 mg/dL (8-23); Calcium 8.7 mg/dL (8.6-10.3); Carbon Dioxide 25 mEq/L (23-29); Chloride 102 mEq/L (98-107); Ethanol < 10 mg/dL (Less than 10); Globulin 3.4 g/dL (2.4-3.5); Glucose 100 mg/dL (70-105); Osmolality,Calculated 285 (280-300); Potassium 4.7 mEq/L (3.5-5.1); Sodium 136 mEq/L (136-145); Total Protein 6.8 g/dL (6.4-8.9); Troponin I 0.06 ng/mL (< 0.04); eGFR For African Americans > 60 (> 60); eGFR For Non-African Americans > 60 (> 60)
[2020-12-31 20:57] LABS: Thyroid Stimulating Hormone 1.387 mcIU/mL (0.340-5.600)
[2020-12-31 21:09] LABS: Amphetamine Screen,Urine Negative ng/mL (Cutoff=1000); Barbiturate Screen,Urine Negative ng/mL (Cutoff=200); Benzodiazepines Screen,Urine Negative ng/mL (Cutoff=200); Cannabinoid Screen,Urine Negative ng/mL (Cutoff = 50); Cocaine Screen,Urine Negative ng/mL (Cutoff= 300); Opiate Screen,Urine Negative ng/mL (Cutoff=300); Phencyclidine Screen,Urine Negative ng/mL (Cutoff=25)
[2020-12-31 21:13] LABS: Bilirubin,Urine Negative (Negative); Blood,Urine Small (Negative); Clarity,Urine Clear (Clear); Color,Urine Light-Yellow (Yellow); Glucose,Urine (UA) Normal (Normal); Hyaline Casts,Urine Moderate per lpf (None Seen); Ketones,Urine 10 mg/dL (Negative); Leukocyte Esterase,Urine Moderate (Negative); Mucus,Urine Few per lpf (None-Few); Nitrite,Urine Negative (Negative); Protein,Urine Negative (Neg-Trace); RBC,Urine 0-3 per hpf (0-3); Specific Gravity,Urine 1.015 (1.010-1.025); Squamous Epithelial Cell,Urine Few per hpf (None-Few); Transitional Epi Cells,Urine Few per hpf (None-Few); Urobilinogen,Urine Normal (Normal)
[2020-12-31] MEDS ORDERED: Aspirin 81 MG TAB.CHEW PO STA (22:19)
[2021-01-01] MEDS ORDERED: Ondansetron 4 MG/2 ML VIAL IVP PRN (02:15)
[2021-01-01] MEDS ORDERED: Naloxone 0.4 MG/ML INJ IVP PRN (02:15)
[2021-01-01] MEDS: cefTRIAXone 1,000 MG in 0.9 % Sodium Chloride Mini Bag 100 ML IVPB SCH (05:23)
[2021-01-01 05:44] LABS: Hematocrit 37.7 % (37.5-50.1); Hemoglobin 12.4 g/dL (12.9-16.9); Mean Corpuscular HGB Conc 32.9 g/dL (31.6-35.5); Mean Corpuscular Hemoglobin 28.7 pg (28.0-33.3); Mean Corpuscular Volume 87.3 fL (83.0-100.0); Mean Platelet Volume 10.1 fL (9.4-12.4); Platelet Count 167 K/mcL (140-400); Red Blood Count 4.32 M/mcL (4.19-5.50); Red Cell Distribution Width 14.4 % (11.5-14.5); White Blood Count 10.1 K/mcL (4.3-11.1)
[2021-01-01 06:06] LABS: BUN/Creatinine Ratio 23 (6-26); Blood Urea Nitrogen 22 mg/dL (8-23); Calcium 8.5 mg/dL (8.6-10.3); Carbon Dioxide 22 mEq/L (23-29); Chloride 103 mEq/L (98-107); Glucose 78 mg/dL (70-105); Osmolality,Calculated 286 (280-300); Potassium 3.8 mEq/L (3.5-5.1); Sodium 137 mEq/L (136-145); eGFR For African Americans > 60 (> 60); eGFR For Non-African Americans > 60 (> 60)
[2021-01-01 06:11] LABS: Troponin I 0.05 ng/mL (< 0.04)
[2021-01-01] MEDS: Budesonide/Formoterol 160/4.5 1 PUFF INH IH SCH ×2 (09:43→20:21)
[2021-01-01] MEDS ORDERED: Gadolinium Contrast Agent (WT Based) IV PRN (13:01)
[2021-01-01] MEDS ORDERED: Perflutren Lipid Microsphere 1.3 ML in 0.9 % Sodium Chloride 8.7 ML IVP PRN (21:16)
[2021-01-01] MEDS ORDERED: Isovue-370 500 ML BOTTLE IVP ONE (21:24)
[2021-01-02 03:15] LABS: Basophils # 0.1 K/mcL (0.0-0.2); Basophils % 0.6 %; Eosinophils # 0.1 K/mcL (0.0-0.6); Eosinophils % 1.2 %; Hematocrit 37.8 % (37.5-50.1); Immature Granulocytes % 0.5 % (0-4); Lymphocytes # 2.1 K/mcL (0.6-4.6); Lymphocytes % 24.3 %; Mean Corpuscular HGB Conc 31.7 g/dL (31.6-35.5); Mean Corpuscular Hemoglobin 27.8 pg (28.0-33.3); Mean Corpuscular Volume 87.5 fL (83.0-100.0); Monocytes # 0.8 K/mcL (0.0-1.3); Monocytes % 8.7 %; Neutrophils # 5.6 K/mcL (1.6-8.9); Platelet Count 154 K/mcL (140-400); Red Blood Count 4.32 M/mcL (4.19-5.50); Red Cell Distribution Width 14.4 % (11.5-14.5); Segmented Neutrophils % 64.7 %; White Blood Count 8.6 K/mcL (4.3-11.1)
[2021-01-02] MEDS: cefTRIAXone 1,000 MG in 0.9 % Sodium Chloride Mini Bag 100 ML IVPB SCH (03:24)
[2021-01-02 03:28] LABS: BUN/Creatinine Ratio 23 (6-26); Blood Urea Nitrogen 20 mg/dL (8-23); Calcium 8.5 mg/dL (8.6-10.3); Carbon Dioxide 27 mEq/L (23-29); Chloride 103 mEq/L (98-107); Glucose 91 mg/dL (70-105); Osmolality,Calculated 288 (280-300); Potassium 3.5 mEq/L (3.5-5.1); Sodium 138 mEq/L (136-145); eGFR For African Americans > 60 (> 60); eGFR For Non-African Americans > 60 (> 60)
[2021-01-02] MEDS: Budesonide/Formoterol 160/4.5 1 PUFF INH IH SCH ×2 (07:51→19:49)
[2021-01-02] MEDS: Cyanocobalamin (B-12) 1,000 MCG TABLET PO SCH (12:00)
[2021-01-02] MEDS: Metoprolol XL (24 HR) Succ 50 MG TAB.ER.24H PO SCH (12:00)
[2021-01-02] MEDS: Aspirin Enteric Coated 81 MG Tablet PO SCH (12:01)
[2021-01-02] MEDS: *HR* Heparin 5,000 UNIT/ML VIAL SQ SCH (17:58)
[2021-01-02] MEDS: Melatonin 3 MG TABLET PO SCH (21:40)
[2021-01-03] MEDS: cefTRIAXone 1,000 MG in 0.9 % Sodium Chloride Mini Bag 100 ML IVPB SCH (03:37)
[2021-01-03] MEDS: *HR* Heparin 5,000 UNIT/ML VIAL SQ SCH ×2 (04:26→17:15)
[2021-01-03 05:36] LABS: Basophils # 0.1 K/mcL (0.0-0.2); Basophils % 0.8 %; Eosinophils # 0.1 K/mcL (0.0-0.6); Eosinophils % 1.7 %; Hematocrit 39.4 % (37.5-50.1); Hemoglobin 12.8 g/dL (12.9-16.9); Immature Granulocytes % 0.8 % (0-4); Lymphocytes # 1.6 K/mcL (0.6-4.6); Lymphocytes % 25.6 %; Mean Corpuscular HGB Conc 32.5 g/dL (31.6-35.5); Mean Corpuscular Hemoglobin 28.3 pg (28.0-33.3); Mean Platelet Volume 10.2 fL (9.4-12.4); Monocytes # 0.5 K/mcL (0.0-1.3); Monocytes % 8.3 %; Platelet Count 156 K/mcL (140-400); Red Blood Count 4.53 M/mcL (4.19-5.50); Red Cell Distribution Width 14.4 % (11.5-14.5); Segmented Neutrophils % 62.8 %; White Blood Count 6.3 K/mcL (4.3-11.1)
[2021-01-03 05:57] LABS: BUN/Creatinine Ratio 21 (6-26); Blood Urea Nitrogen 17 mg/dL (8-23); Calcium 8.4 mg/dL (8.6-10.3); Carbon Dioxide 27 mEq/L (23-29); Chloride 104 mEq/L (98-107); Glucose 89 mg/dL (70-105); Osmolality,Calculated 291 (280-300); Potassium 3.4 mEq/L (3.5-5.1); Sodium 140 mEq/L (136-145); eGFR For African Americans > 60 (> 60); eGFR For Non-African Americans > 60 (> 60)
[2021-01-03] MEDS: Budesonide/Formoterol 160/4.5 1 PUFF INH IH SCH ×2 (07:41→21:43)
[2021-01-03] MEDS ORDERED: Potassium Chloride Elixir 20 MEQ/15 ML UDC PO ONE (09:27)
[2021-01-03] MEDS: Aspirin Enteric Coated 81 MG Tablet PO SCH (09:54)
[2021-01-03] MEDS: Metoprolol XL (24 HR) Succ 50 MG TAB.ER.24H PO SCH (09:54)
[2021-01-03] MEDS: Cyanocobalamin (B-12) 1,000 MCG TABLET PO SCH (09:55)
[2021-01-03] MEDS ORDERED: Carbidopa/Levodopa 25/100 TABLET PO SCH (10:15)
[2021-01-03] MEDS ORDERED: Carbidopa/Levodopa 25/250 TABLET PO SCH (13:00)
[2021-01-03] MEDS: Carbidopa/Levodopa 25/100 TABLET PO SCH (21:18)
[2021-01-03] MEDS: Melatonin 3 MG TABLET PO SCH (21:19)
[2021-01-04 01:36] LABS: BUN/Creatinine Ratio 28 (6-26); Blood Urea Nitrogen 23 mg/dL (8-23); Calcium 8.7 mg/dL (8.6-10.3); Carbon Dioxide 27 mEq/L (23-29); Chloride 102 mEq/L (98-107); Glucose 104 mg/dL (70-105); Osmolality,Calculated 290 (280-300); Potassium 3.9 mEq/L (3.5-5.1); Sodium 138 mEq/L (136-145); eGFR For African Americans > 60 (> 60); eGFR For Non-African Americans > 60 (> 60)
[2021-01-04] MEDS: cefTRIAXone 1,000 MG in 0.9 % Sodium Chloride Mini Bag 100 ML IVPB SCH (05:01)
[2021-01-04] MEDS: *HR* Heparin 5,000 UNIT/ML VIAL SQ SCH ×2 (05:03→17:58)
[2021-01-04] MEDS: Aspirin Enteric Coated 81 MG Tablet PO SCH (07:53)
[2021-01-04] MEDS: Metoprolol XL (24 HR) Succ 50 MG TAB.ER.24H PO SCH (07:53)
[2021-01-04] MEDS: Cyanocobalamin (B-12) 1,000 MCG TABLET PO SCH (07:53)
[2021-01-04] MEDS: Carbidopa/Levodopa 25/100 TABLET PO SCH ×3 (07:53→20:49)
[2021-01-04] MEDS: Budesonide/Formoterol 160/4.5 1 PUFF INH IH SCH ×2 (08:01→19:50)
[2021-01-04] MEDS: Melatonin 3 MG TABLET PO SCH (20:49)
[2021-01-05] MEDS: *HR* Heparin 5,000 UNIT/ML VIAL SQ SCH (04:29)
[2021-01-05] MEDS: Budesonide/Formoterol 160/4.5 1 PUFF INH IH SCH (07:46)
[2021-01-05 07:53] VITALS: TEMP 97.8; O2SAT 94
[2021-01-05] MEDS: Metoprolol XL (24 HR) Succ 50 MG TAB.ER.24H PO SCH (09:39)
[2021-01-05] MEDS: Cyanocobalamin (B-12) 1,000 MCG TABLET PO SCH (09:39)
[2021-01-05] MEDS: Aspirin Enteric Coated 81 MG Tablet PO SCH (09:40)
[2021-01-05] MEDS: Carbidopa/Levodopa 25/100 TABLET PO SCH (09:40)
[2021-01-05 10:58] LABS: Adenovirus Not Detected (Not Detect); Bordetella Pertussis Not Detected (Not Detect); Chlamydophila pneumoniae Not Detected (Not Detect); Coronavirus 229E Not Detected (Not Detect); Coronavirus HKU1 Not Detected (Not Detect); Coronavirus NL63 Not Detected (Not Detect); Coronavirus OC43 Not Detected (Not Detect); Human Metapneumovirus Not Detected (Not Detect); Human Rhinovirus/Enterovirus Not Detected (Not Detect); Influenza A Subtype 2009 H1 Not Detected (Not Detect); Influenza B Not Detected (Not Detect); Mycoplasma pneumoniae Not Detected (Not Detect); Parainfluenza Virus 1 Not Detected (Not Detect); Parainfluenza Virus 2 Not Detected (Not Detect); Parainfluenza Virus 3 Not Detected (Not Detect); Parainfluenza Virus 4 Not Detected (Not Detect); Respiratory Syncytial Virus Not Detected (Not Detect); SARS-CoV-2 Not Detected (Not Detect)
[2021-01-05 12:09] VITALS: BP 109/62; PULSE 69
== END 2021-01-05 12:32 ==
LOC: 2ANU 18:23 → EMEROOARM 18:23 → SUATTDRO 01-01 01:04 → 2ANU 01-01 01:45
PROVIDERS: ADMIT Student in an Organized Health Care Education/Training Program; ATTEND Student in an Organized Health Care Education/Training Program

== ENCOUNTER 2021-04-22 17:39 | Inpatient (IN) ==
[2021-04-22] MEDS ORDERED: Aspirin 81 MG TAB.CHEW PO ONE (17:45)
[2021-04-22 18:06] LABS: Basophils % 0.2 %; Hematocrit 32.2 % (37.5-50.1); Immature Granulocytes % 0.5 % (0-4); Lymphocytes % 6.7 %; Mean Corpuscular HGB Conc 32.6 g/dL (31.6-35.5); Mean Corpuscular Hemoglobin 28.6 pg (28.0-33.3); Mean Corpuscular Volume 87.7 fL (83.0-100.0); Mean Platelet Volume 10.8 fL (9.4-12.4); Monocytes # 1.2 K/mcL (0.0-1.3); Monocytes % 7.7 %; Platelet Count 224 K/mcL (140-400); Red Blood Count 3.67 M/mcL (4.19-5.50); Red Cell Distribution Width 14.4 % (11.5-14.5); Segmented Neutrophils % 84.9 %
[2021-04-22 18:07] LABS: Hemoglobin 10.5 g/dL (12.9-16.9); Neutrophils # 12.7 K/mcL (1.6-8.9)
[2021-04-22 19:18] LABS: INR 1.1; Prothrombin Time 12.5 Seconds (9.4-12.1)
[2021-04-22 19:23] LABS: Activated Partial Thrombo Time 27.8 Seconds (26.0-36.0)
[2021-04-22 19:31] LABS: Albumin 3.4 g/dL (3.5-5.7); Bilirubin,Direct 0.3 mg/dL (0.0-0.2); Bilirubin,Indirect 0.6 mg/dL (0.0-1.0); Bilirubin,Total 0.9 mg/dL (0.3-1.0); Calcium 8.9 mg/dL (8.6-10.3); Globulin 3.5 g/dL (2.4-3.5); Total Protein 6.9 g/dL (6.4-8.9); Troponin I 0.04 ng/mL (< 0.04)
[2021-04-22] MEDS ORDERED: 0.9 % Sodium Chloride 1,000 ML IVC ONE (19:36)
[2021-04-22] MEDS ORDERED: Melatonin 3 MG TABLET PO PRN (21:07)
[2021-04-22] MEDS ORDERED: Naloxone 0.4 MG/ML INJ IVP PRN (21:07)
[2021-04-22] MEDS ORDERED: Ondansetron 4 MG/2 ML VIAL IVP PRN (21:07)
[2021-04-22] MEDS ORDERED: 0.9 % Sodium Chloride 1,000 ML IVC SCH (21:15)
[2021-04-22] MEDS ORDERED: *HR* Dextrose 50 % in Water (Syg) 50 ML SYRINGE IVP PRN (21:31)
[2021-04-22] MEDS ORDERED: Dextrose Gel 15 GM/37.5 ML TUBE PO PRN ×2 (21:31)
[2021-04-22] MEDS ORDERED: D5% in Water 1,000 ML IVC PRN (21:31)
[2021-04-22 21:55] LABS: Thyroid Stimulating Hormone 1.14 mcIU/mL (0.340-5.600)
[2021-04-22] MEDS: Insulin LISPRO 300 UNITS/3 ML VIAL SUBQ SCH (23:23)
[2021-04-22 23:25] LABS: Folate 18.8 ng/mL (3.0-16.0)
[2021-04-23 02:19] LABS: Hemoglobin 9.9 g/dL (12.9-16.9); Mean Platelet Volume 10.2 fL (9.4-12.4); Platelet Count 192 K/mcL (140-400); Red Blood Count 3.41 M/mcL (4.19-5.50); Red Cell Distribution Width 14.4 % (11.5-14.5)
[2021-04-23 02:38] LABS: Calcium 8.2 mg/dL (8.6-10.3); Potassium 3.8 mEq/L (3.5-5.1)
[2021-04-23] MEDS ORDERED: Nitroglycerin 0.4 MG TAB.SUBL SL PRN (04:35)
[2021-04-23 06:39] LABS: Bilirubin,Urine Negative (Negative); Blood,Urine Moderate (Negative); Clarity,Urine Clear (Clear); Color,Urine Light-Yellow (Yellow); Glucose,Urine (UA) Normal (Normal); Ketones,Urine 60 mg/dL (Negative); Leukocyte Esterase,Urine Trace (Negative); Mucus,Urine Few per lpf (None-Few); Nitrite,Urine Negative (Negative); Protein,Urine 50 mg/dL (Neg-Trace); Specific Gravity,Urine 1.018 (1.010-1.025); Squamous Epithelial Cell,Urine Few per hpf (None-Few); Urobilinogen,Urine Normal (Normal)
[2021-04-23] MEDS: Insulin LISPRO 300 UNITS/3 ML VIAL SUBQ SCH ×3 (07:13→16:58)
[2021-04-23] MEDS ORDERED: Aspirin Enteric Coated 81 MG Tablet PO SCH (09:00)
[2021-04-23] MEDS ORDERED: Iron Sucrose Complex 200 MG in 0.9 % Sodium Chloride 100 ML IVPB ONE (12:43)
[2021-04-23] MEDS: Isosorbide MONOnitrate (24 HR) 30 MG TAB.ER.24H PO SCH (13:42)
[2021-04-23] MEDS: Carbidopa/Levodopa 25/100 TABLET PO SCH ×2 (14:15→20:52)
[2021-04-23 15:36] LABS: Hematocrit 29.8 % (37.5-50.1); Hemoglobin 9.5 g/dL (12.9-16.9)
[2021-04-23] MEDS: Acetaminophen 325 MG TABLET PO PRN (16:56)
[2021-04-23] MEDS: Budesonide/Formoterol 160/4.5 1 PUFF INH IH SCH (19:55)
[2021-04-23] MEDS ORDERED: Carbidopa/Levodopa 25/100 TABLET PO SCH (21:00)
[2021-04-24 03:27] LABS: Basophils % 0.3 %; Eosinophils % 0.4 %; Hematocrit 28.9 % (37.5-50.1); Hemoglobin 9.2 g/dL (12.9-16.9); Immature Granulocytes % 0.7 % (0-4); Lymphocytes # 1.2 K/mcL (0.6-4.6); Lymphocytes % 10.5 %; Mean Corpuscular HGB Conc 31.8 g/dL (31.6-35.5); Mean Corpuscular Hemoglobin 27.6 pg (28.0-33.3); Mean Corpuscular Volume 86.8 fL (83.0-100.0); Mean Platelet Volume 10.2 fL (9.4-12.4); Monocytes # 1.2 K/mcL (0.0-1.3); Monocytes % 10.1 %; Neutrophils # 8.9 K/mcL (1.6-8.9); Platelet Count 209 K/mcL (140-400); Red Blood Count 3.33 M/mcL (4.19-5.50); Red Cell Distribution Width 14.6 % (11.5-14.5); White Blood Count 11.4 K/mcL (4.3-11.1)
[2021-04-24 03:39] LABS: Alanine Aminotransferase 13 Units/L (7-52); Alkaline Phosphatase 48 Units/L (34-104); Aspartate Amino Transferase 30 Units/L (13-39); BUN/Creatinine Ratio 19 (6-26); Bilirubin,Total 0.8 mg/dL (0.3-1.0); Blood Urea Nitrogen 25 mg/dL (8-23); Calcium 8.3 mg/dL (8.6-10.3); Carbon Dioxide 25 mEq/L (23-29); Chloride 103 mEq/L (98-107); Globulin 3.1 g/dL (2.4-3.5); Glucose 83 mg/dL (70-105); Osmolality,Calculated 280 (280-300); Potassium 3.4 mEq/L (3.5-5.1); Sodium 133 mEq/L (136-145); Total Protein 6.1 g/dL (6.4-8.9); eGFR For African Americans > 60 (> 60); eGFR For Non-African Americans 54 (> 60)
[2021-04-24] MEDS: Budesonide/Formoterol 160/4.5 1 PUFF INH IH SCH ×2 (07:40→20:04)
[2021-04-24] MEDS: Cholecalciferol (D-3) 1,000 UNIT (25MCG) TABLET PO SCH (08:20)
[2021-04-24] MEDS: Pyridoxine (B-6) 50 MG TABLET PO SCH (08:20)
[2021-04-24] MEDS: Cyanocobalamin (B-12) 1,000 MCG TABLET PO SCH (08:21)
[2021-04-24] MEDS: Carbidopa/Levodopa 25/100 TABLET PO SCH ×3 (08:21→19:46)
[2021-04-24] MEDS: Isosorbide MONOnitrate (24 HR) 30 MG TAB.ER.24H PO SCH (08:21)
[2021-04-24] MEDS: Insulin LISPRO 300 UNITS/3 ML VIAL SUBQ SCH ×3 (09:01→16:50)
[2021-04-24] MEDS ORDERED: Isovue-370 500 ML BOTTLE IVP ONE (10:40)
[2021-04-24] MEDS: 0.9 % Sodium Chloride 1,000 ML IVC SCH ×2 (11:11→19:44)
[2021-04-24] MEDS: Metoprolol 100 MG TABLET PO SCH (11:54)
[2021-04-25 05:45] LABS: Basophils % 0.3 %; Eosinophils # 0.1 K/mcL (0.0-0.6); Eosinophils % 0.6 %; Hematocrit 31.7 % (37.5-50.1); Hemoglobin 10.4 g/dL (12.9-16.9); Lymphocytes # 1.1 K/mcL (0.6-4.6); Lymphocytes % 9.4 %; Mean Corpuscular HGB Conc 32.8 g/dL (31.6-35.5); Mean Corpuscular Hemoglobin 28.7 pg (28.0-33.3); Mean Corpuscular Volume 87.6 fL (83.0-100.0); Monocytes # 1.1 K/mcL (0.0-1.3); Neutrophils # 9.4 K/mcL (1.6-8.9); Platelet Count 220 K/mcL (140-400); Red Blood Count 3.62 M/mcL (4.19-5.50); Red Cell Distribution Width 14.4 % (11.5-14.5); Segmented Neutrophils % 79.7 %; White Blood Count 11.8 K/mcL (4.3-11.1)
[2021-04-25 06:03] LABS: Alanine Aminotransferase 13 Units/L (7-52); Albumin 2.9 g/dL (3.5-5.7); Albumin/Globulin Ratio 0.9 (1.1-2.2); Alkaline Phosphatase 51 Units/L (34-104); Aspartate Amino Transferase 30 Units/L (13-39); BUN/Creatinine Ratio 18 (6-26); Bilirubin,Total 0.8 mg/dL (0.3-1.0); Blood Urea Nitrogen 20 mg/dL (8-23); Calcium 8.3 mg/dL (8.6-10.3); Carbon Dioxide 22 mEq/L (23-29); Chloride 103 mEq/L (98-107); Globulin 3.3 g/dL (2.4-3.5); Glucose 71 mg/dL (70-105); Osmolality,Calculated 289 (280-300); Potassium 3.3 mEq/L (3.5-5.1); Sodium 139 mEq/L (136-145); Total Protein 6.2 g/dL (6.4-8.9); eGFR For African Americans > 60 (> 60); eGFR For Non-African Americans > 60 (> 60)
[2021-04-25] MEDS: Cholecalciferol (D-3) 1,000 UNIT (25MCG) TABLET PO SCH (08:45)
[2021-04-25] MEDS: Cyanocobalamin (B-12) 1,000 MCG TABLET PO SCH (08:45)
[2021-04-25] MEDS: 0.9 % Sodium Chloride 1,000 ML IVC SCH ×2 (08:45→13:41)
[2021-04-25] MEDS: Pyridoxine (B-6) 50 MG TABLET PO SCH (08:46)
[2021-04-25] MEDS: Insulin LISPRO 300 UNITS/3 ML VIAL SUBQ SCH ×3 (08:46→16:50)
[2021-04-25] MEDS: Isosorbide MONOnitrate (24 HR) 30 MG TAB.ER.24H PO SCH (08:46)
[2021-04-25] MEDS: Carbidopa/Levodopa 25/100 TABLET PO SCH ×3 (08:46→20:33)
[2021-04-25] MEDS: Metoprolol 100 MG TABLET PO SCH (08:46)
[2021-04-25] MEDS: Budesonide/Formoterol 160/4.5 1 PUFF INH IH SCH ×2 (10:00→20:27)
[2021-04-25] MEDS ORDERED: Isovue-370 500 ML BOTTLE IVP ONE (10:56)
[2021-04-25] MEDS: Furosemide 40 MG TABLET PO SCH (11:21)
[2021-04-25] MEDS: Spironolactone 25 MG TABLET PO SCH (11:21)
[2021-04-26 01:56] LABS: Basophils % 0.3 %; Eosinophils # 0.2 K/mcL (0.0-0.6); Eosinophils % 1.4 %; Hemoglobin 10.8 g/dL (12.9-16.9); Immature Granulocytes % 1.1 % (0-4); Lymphocytes # 1.4 K/mcL (0.6-4.6); Lymphocytes % 12.2 %; Mean Corpuscular HGB Conc 32.7 g/dL (31.6-35.5); Mean Corpuscular Hemoglobin 28.6 pg (28.0-33.3); Mean Corpuscular Volume 87.3 fL (83.0-100.0); Mean Platelet Volume 9.8 fL (9.4-12.4); Monocytes # 1.1 K/mcL (0.0-1.3); Monocytes % 9.9 %; Neutrophils # 8.5 K/mcL (1.6-8.9); Platelet Count 228 K/mcL (140-400); Red Blood Count 3.78 M/mcL (4.19-5.50); Red Cell Distribution Width 14.6 % (11.5-14.5); Segmented Neutrophils % 75.1 %; White Blood Count 11.4 K/mcL (4.3-11.1)
[2021-04-26 02:21] LABS: Alanine Aminotransferase 10 Units/L (7-52); Albumin 2.9 g/dL (3.5-5.7); Albumin/Globulin Ratio 0.8 (1.1-2.2); Alkaline Phosphatase 52 Units/L (34-104); Aspartate Amino Transferase 35 Units/L (13-39); BUN/Creatinine Ratio 19 (6-26); Bilirubin,Total 0.8 mg/dL (0.3-1.0); Blood Urea Nitrogen 18 mg/dL (8-23); Calcium 8.4 mg/dL (8.6-10.3); Carbon Dioxide 25 mEq/L (23-29); Chloride 104 mEq/L (98-107); Globulin 3.5 g/dL (2.4-3.5); Glucose 131 mg/dL (70-105); Osmolality,Calculated 292 (280-300); Potassium 3.4 mEq/L (3.5-5.1); Sodium 139 mEq/L (136-145); Total Protein 6.4 g/dL (6.4-8.9); eGFR For African Americans > 60 (> 60); eGFR For Non-African Americans > 60 (> 60)
[2021-04-26] MEDS: Budesonide/Formoterol 160/4.5 1 PUFF INH IH SCH ×2 (07:46→22:01)
[2021-04-26] MEDS: Insulin LISPRO 300 UNITS/3 ML VIAL SUBQ SCH ×3 (08:01→16:33)
[2021-04-26] MEDS: Cholecalciferol (D-3) 1,000 UNIT (25MCG) TABLET PO SCH (09:19)
[2021-04-26] MEDS: Isosorbide MONOnitrate (24 HR) 30 MG TAB.ER.24H PO SCH (09:19)
[2021-04-26] MEDS: Metoprolol 100 MG TABLET PO SCH (09:20)
[2021-04-26] MEDS: Cyanocobalamin (B-12) 1,000 MCG TABLET PO SCH (09:20)
[2021-04-26] MEDS: Pyridoxine (B-6) 50 MG TABLET PO SCH (09:20)
[2021-04-26] MEDS: Furosemide 40 MG TABLET PO SCH (09:20)
[2021-04-26] MEDS: Spironolactone 25 MG TABLET PO SCH (09:20)
[2021-04-26] MEDS: Carbidopa/Levodopa 25/100 TABLET PO SCH ×3 (09:21→20:26)
[2021-04-26] MEDS: Acetaminophen 325 MG TABLET PO PRN (12:55)
[2021-04-27] MEDS: Insulin LISPRO 300 UNITS/3 ML VIAL SUBQ SCH ×2 (07:31→11:46)
[2021-04-27] MEDS: Budesonide/Formoterol 160/4.5 1 PUFF INH IH SCH (07:53)
[2021-04-27] MEDS: Isosorbide MONOnitrate (24 HR) 30 MG TAB.ER.24H PO SCH (09:34)
[2021-04-27] MEDS: Cholecalciferol (D-3) 1,000 UNIT (25MCG) TABLET PO SCH (09:34)
[2021-04-27] MEDS: Metoprolol 100 MG TABLET PO SCH (09:34)
[2021-04-27] MEDS: Furosemide 40 MG TABLET PO SCH (09:34)
[2021-04-27] MEDS: Cyanocobalamin (B-12) 1,000 MCG TABLET PO SCH (09:34)
[2021-04-27] MEDS: Spironolactone 25 MG TABLET PO SCH (09:37)
[2021-04-27] MEDS: Pyridoxine (B-6) 50 MG TABLET PO SCH (09:37)
[2021-04-27] MEDS: Carbidopa/Levodopa 25/100 TABLET PO SCH (09:37)
[2021-04-27 15:17] VITALS: BP 143/73; PULSE 68; TEMP 98.1; O2SAT 94
[2021-04-27 16:58] LABS: Estimated Average Glucose 123 mg/dl; Hemoglobin A1C 5.9 %
== END 2021-04-27 17:07 | disposition home health service (06) | DRG 303 ==
LOC: 3BNU 17:39 → EMEROOARM 17:39 → 3BNU 22:32 → SUATTDRO 04-24 11:19
PROVIDERS: ADMIT Internal Medicine; ATTEND Registered Nurse

== ENCOUNTER 2021-12-05 12:10 | Inpatient (IN) ==
[2021-12-05] MEDS ORDERED: Ondansetron 4 MG/2 ML VIAL IVP PRN (19:29)
[2021-12-05] MEDS ORDERED: Melatonin 3 MG TABLET PO PRN (19:29)
[2021-12-05] MEDS ORDERED: Acetaminophen 325 MG TABLET PO PRN (19:29)
[2021-12-05] MEDS ORDERED: Naloxone 0.4 MG/ML INJ IVP PRN (19:29)
[2021-12-05] MEDS ORDERED: *HR* HYDROcodone/Acet 5/325 mg TABLET PO PRN (19:29)
[2021-12-05] MEDS: 0.9 % Sodium Chloride 1,000 ML IVC SCH (20:34)
[2021-12-06] MEDS: 0.9 % Sodium Chloride 1,000 ML IVC SCH (05:33)
[2021-12-06 05:39] LABS: Basophils % 0.1 %; Hematocrit 32.9 % (37.5-50.1); Hemoglobin 10.4 g/dL (12.9-16.9); Immature Granulocytes % 0.7 % (0-4); Lymphocytes # 0.5 K/mcL (0.6-4.6); Lymphocytes % 3.5 %; Mean Corpuscular HGB Conc 31.6 g/dL (31.6-35.5); Mean Corpuscular Hemoglobin 26.6 pg (28.0-33.3); Mean Corpuscular Volume 84.1 fL (83.0-100.0); Mean Platelet Volume 11.8 fL (9.4-12.4); Monocytes # 0.7 K/mcL (0.0-1.3); Monocytes % 5.3 %; Neutrophils # 11.9 K/mcL (1.6-8.9); Platelet Count 92 K/mcL (140-400); Red Blood Count 3.91 M/mcL (4.19-5.50); Red Cell Distribution Width 14.8 % (11.5-14.5); Segmented Neutrophils % 90.4 %; White Blood Count 13.2 K/mcL (4.3-11.1)
[2021-12-06 05:42] LABS: INR 1.7; Prothrombin Time 19.1 Seconds (9.4-12.1)
[2021-12-06 05:55] LABS: Calcium 8.2 mg/dL (8.6-10.3); Chol/HDL Ratio 3.2 (0-4.9); Magnesium 1.6 mg/dL (1.6-2.6); Potassium 3.9 mEq/L (3.5-5.1)
[2021-12-06] MEDS ORDERED: *HR* FentaNYL (PF) 100 MCG/2 ML VIAL ONE (07:16)
[2021-12-06] MEDS ORDERED: *HR* Propofol 200 MG/20 ML VIAL IVP ONE (07:16)
[2021-12-06] MEDS ORDERED: Lidocaine -MPF 2% 2 ML VIAL ONE (07:17)
[2021-12-06] MEDS ORDERED: Iopamidol - 300 100 ML INFUS..BTL ONE (07:20)
[2021-12-06] MEDS ORDERED: *HR* HYDROmorphone (PF) 1 MG/ML SYRINGE IVP PRN (08:14)
[2021-12-06] MEDS ORDERED: *HR* Labetalol 20 MG/4 ML SYRINGE IVP PRN (08:14)
[2021-12-06] MEDS ORDERED: *HR* OxyCODONE Immed Rel 5 MG TABLET PO PRN (08:14)
[2021-12-06] MEDS ORDERED: *HR* HYDROmorphone 2 MG TABLET PO PRN (08:14)
[2021-12-06] MEDS ORDERED: Ondansetron 4 MG/2 ML VIAL ONE (08:48)
[2021-12-06] MEDS ORDERED: cefTRIAXone 2,000 MG in 0.9 % Sodium Chloride 20 ML IVP SCH (09:00)
[2021-12-06] MEDS ORDERED: Ondansetron 4 MG/2 ML VIAL IVP PRN (09:38)
[2021-12-06] MEDS ORDERED: Naloxone 0.4 MG/ML INJ IVP PRN (09:38)
[2021-12-06] MEDS ORDERED: 0.9 % Sodium Chloride 1,000 ML IVC SCH (09:38)
[2021-12-06] MEDS ORDERED: Melatonin 3 MG TABLET PO PRN (09:38)
[2021-12-06] MEDS: cefTRIAXone 2,000 MG in 0.9 % Sodium Chloride 20 ML IVP SCH (10:23)
[2021-12-06] MEDS ORDERED: Perflutren Lipid Microsphere 1.3 ML in 0.9 % Sodium Chloride 8.7 ML IVP PRN (15:57)
[2021-12-06] MEDS ORDERED: polyethylene glycoL 3350 17 GM POWD.PACK PO PRN (16:51)
[2021-12-06] MEDS ORDERED: Nitroglycerin 0.4 MG TAB.SUBL SL PRN (16:51)
[2021-12-06] MEDS: levETIRAcetam 250 MG TABLET PO SCH (17:30)
[2021-12-06] MEDS ORDERED: *HR* Heparin 5,000 UNIT/ML VIAL SQ SCH (18:00)
[2021-12-06] MEDS: Carbidopa/Levodopa 25/100 TABLET PO SCH (22:38)
[2021-12-06] MEDS: *HR* HYDROcodone/Acet 5/325 mg TABLET PO PRN (22:52)
[2021-12-07 03:57] LABS: Basophils % 0.2 %; Eosinophils # 0.2 K/mcL (0.0-0.6); Eosinophils % 1.9 %; Hematocrit 32.5 % (37.5-50.1); Hemoglobin 10.3 g/dL (12.9-16.9); Immature Granulocytes % 0.7 % (0-4); Immature Platelets 7.9 % (1.1-6.1); Lymphocytes # 0.8 K/mcL (0.6-4.6); Mean Corpuscular HGB Conc 31.7 g/dL (31.6-35.5); Mean Corpuscular Hemoglobin 26.4 pg (28.0-33.3); Mean Corpuscular Volume 83.3 fL (83.0-100.0); Mean Platelet Volume 11.9 fL (9.4-12.4); Monocytes # 0.6 K/mcL (0.0-1.3); Monocytes % 6.4 %; Neutrophils # 8.3 K/mcL (1.6-8.9); Red Cell Distribution Width 14.7 % (11.5-14.5); Segmented Neutrophils % 82.8 %
[2021-12-07 04:02] LABS: Platelet Count 93 K/mcL (140-400)
[2021-12-07 04:11] LABS: BUN/Creatinine Ratio 27 (6-26); Blood Urea Nitrogen 31 mg/dL (8-23); Calcium 7.9 mg/dL (8.6-10.3); Carbon Dioxide 23 mEq/L (23-29); Chloride 107 mEq/L (98-107); Glucose 75 mg/dL (70-105); Magnesium 1.5 mg/dL (1.6-2.6); Osmolality,Calculated 289 (280-300); Phosphorous 1.7 mg/dL (2.7-4.5); Potassium 3.7 mEq/L (3.5-5.1); Sodium 137 mEq/L (136-145); eGFR For African Americans > 60 (> 60); eGFR For Non-African Americans > 60 (> 60)
[2021-12-07] MEDS: levETIRAcetam 250 MG TABLET PO SCH ×2 (06:24→17:44)
[2021-12-07] MEDS: cefTRIAXone 2,000 MG in 0.9 % Sodium Chloride 20 ML IVP SCH (08:33)
[2021-12-07] MEDS: Aspirin Enteric Coated 81 MG Tablet PO SCH (08:35)
[2021-12-07] MEDS: Cyanocobalamin (B-12) 1,000 MCG TABLET PO SCH (08:36)
[2021-12-07] MEDS: Magnesium Oxide 400 MG TABLET PO SCH (08:36)
[2021-12-07] MEDS: Isosorbide MONOnitrate (24 HR) 30 MG TAB.ER.24H PO SCH (08:36)
[2021-12-07] MEDS: Cholecalciferol (D-3) 1,000 UNIT (25MCG) TABLET PO SCH (08:36)
[2021-12-07] MEDS: Carbidopa/Levodopa 25/100 TABLET PO SCH ×3 (08:36→20:47)
[2021-12-07] MEDS: Apixaban 5 MG TABLET PO SCH (20:47)
[2021-12-08 02:46] LABS: Basophils % 0.2 %; Eosinophils # 0.2 K/mcL (0.0-0.6); Eosinophils % 2.5 %; Hematocrit 32.7 % (37.5-50.1); Hemoglobin 10.4 g/dL (12.9-16.9); Immature Granulocytes % 0.6 % (0-4); Lymphocytes # 0.8 K/mcL (0.6-4.6); Lymphocytes % 10.3 %; Mean Corpuscular HGB Conc 31.8 g/dL (31.6-35.5); Mean Corpuscular Hemoglobin 26.6 pg (28.0-33.3); Mean Corpuscular Volume 83.6 fL (83.0-100.0); Mean Platelet Volume 11.5 fL (9.4-12.4); Monocytes # 0.5 K/mcL (0.0-1.3); Monocytes % 6.4 %; Neutrophils # 6.5 K/mcL (1.6-8.9); Platelet Count 102 K/mcL (140-400); Red Blood Count 3.91 M/mcL (4.19-5.50); Red Cell Distribution Width 14.7 % (11.5-14.5); White Blood Count 8.1 K/mcL (4.3-11.1)
[2021-12-08 03:06] LABS: BUN/Creatinine Ratio 21 (6-26); Blood Urea Nitrogen 22 mg/dL (8-23); Carbon Dioxide 24 mEq/L (23-29); Chloride 107 mEq/L (98-107); Potassium 3.5 mEq/L (3.5-5.1); Sodium 139 mEq/L (136-145)
[2021-12-08 03:07] LABS: Glucose 74 mg/dL (70-105); Magnesium 1.7 mg/dL (1.6-2.6); Osmolality,Calculated 290 (280-300); Phosphorous 2.1 mg/dL (2.7-4.5); eGFR For African Americans > 60 (> 60); eGFR For Non-African Americans > 60 (> 60)
[2021-12-08] MEDS: levETIRAcetam 250 MG TABLET PO SCH ×2 (05:23→18:28)
[2021-12-08] MEDS: cefTRIAXone 2,000 MG in 0.9 % Sodium Chloride 20 ML IVP SCH (07:57)
[2021-12-08] MEDS: Metoprolol XL (24 HR) Succ 25 MG TAB.ER.24H PO SCH (08:53)
[2021-12-08] MEDS: Aspirin Enteric Coated 81 MG Tablet PO SCH (08:53)
[2021-12-08] MEDS: Carbidopa/Levodopa 25/100 TABLET PO SCH ×3 (08:53→21:01)
[2021-12-08] MEDS: Magnesium Oxide 400 MG TABLET PO SCH (08:53)
[2021-12-08] MEDS: Cyanocobalamin (B-12) 1,000 MCG TABLET PO SCH (08:53)
[2021-12-08] MEDS: Apixaban 5 MG TABLET PO SCH ×2 (08:53→21:01)
[2021-12-08] MEDS: Cholecalciferol (D-3) 1,000 UNIT (25MCG) TABLET PO SCH (08:53)
[2021-12-08] MEDS: Isosorbide MONOnitrate (24 HR) 30 MG TAB.ER.24H PO SCH (08:53)
[2021-12-08] MEDS: Acetaminophen 325 MG TABLET PO PRN (21:01)
[2021-12-09] MEDS: levETIRAcetam 250 MG TABLET PO SCH ×2 (05:28→16:20)
[2021-12-09] MEDS: Cholecalciferol (D-3) 1,000 UNIT (25MCG) TABLET PO SCH (10:34)
[2021-12-09] MEDS: Magnesium Oxide 400 MG TABLET PO SCH (10:35)
[2021-12-09] MEDS: Isosorbide MONOnitrate (24 HR) 30 MG TAB.ER.24H PO SCH (10:35)
[2021-12-09] MEDS: Aspirin Enteric Coated 81 MG Tablet PO SCH (10:35)
[2021-12-09] MEDS: Apixaban 5 MG TABLET PO SCH ×2 (10:36→22:32)
[2021-12-09] MEDS: Metoprolol XL (24 HR) Succ 25 MG TAB.ER.24H PO SCH (10:36)
[2021-12-09] MEDS: cefTRIAXone 2,000 MG in 0.9 % Sodium Chloride 20 ML IVP SCH (10:37)
[2021-12-09] MEDS: Cyanocobalamin (B-12) 1,000 MCG TABLET PO SCH (10:38)
[2021-12-09] MEDS: Carbidopa/Levodopa 25/100 TABLET PO SCH ×3 (10:43→22:32)
[2021-12-10] MEDS: levETIRAcetam 250 MG TABLET PO SCH ×2 (05:13→17:22)
[2021-12-10 05:48] LABS: Basophils # 0.1 K/mcL (0.0-0.2); Basophils % 0.8 %; Eosinophils # 0.2 K/mcL (0.0-0.6); Eosinophils % 1.6 %; Hematocrit 36.6 % (37.5-50.1); Hemoglobin 11.6 g/dL (12.9-16.9); Immature Granulocytes % 2.3 % (0-4); Lymphocytes # 1.7 K/mcL (0.6-4.6); Lymphocytes % 18.4 %; Mean Corpuscular HGB Conc 31.7 g/dL (31.6-35.5); Mean Corpuscular Hemoglobin 26.5 pg (28.0-33.3); Mean Corpuscular Volume 83.6 fL (83.0-100.0); Mean Platelet Volume 10.7 fL (9.4-12.4); Monocytes # 0.8 K/mcL (0.0-1.3); Monocytes % 8.4 %; Neutrophils # 6.4 K/mcL (1.6-8.9); Platelet Count 140 K/mcL (140-400); Red Blood Count 4.38 M/mcL (4.19-5.50); Red Cell Distribution Width 14.6 % (11.5-14.5); Segmented Neutrophils % 68.5 %; White Blood Count 9.3 K/mcL (4.3-11.1)
[2021-12-10 06:00] LABS: BUN/Creatinine Ratio 19 (6-26); Blood Urea Nitrogen 19 mg/dL (8-23); Calcium 8.5 mg/dL (8.6-10.3); Carbon Dioxide 31 mEq/L (23-29); Chloride 103 mEq/L (98-107); Glucose 87 mg/dL (70-105); Magnesium 1.6 mg/dL (1.6-2.6); Osmolality,Calculated 290 (280-300); Potassium 3.9 mEq/L (3.5-5.1); Sodium 139 mEq/L (136-145); eGFR For African Americans > 60 (> 60); eGFR For Non-African Americans > 60 (> 60)
[2021-12-10] MEDS: Carbidopa/Levodopa 25/100 TABLET PO SCH ×3 (07:45→21:36)
[2021-12-10] MEDS: Apixaban 5 MG TABLET PO SCH ×2 (07:45→21:35)
[2021-12-10] MEDS: Isosorbide MONOnitrate (24 HR) 30 MG TAB.ER.24H PO SCH (07:45)
[2021-12-10] MEDS: Metoprolol XL (24 HR) Succ 25 MG TAB.ER.24H PO SCH (07:45)
[2021-12-10] MEDS: Aspirin Enteric Coated 81 MG Tablet PO SCH (07:45)
[2021-12-10] MEDS: Magnesium Oxide 400 MG TABLET PO SCH (07:45)
[2021-12-10] MEDS: Cholecalciferol (D-3) 1,000 UNIT (25MCG) TABLET PO SCH (07:46)
[2021-12-10] MEDS: cefTRIAXone 2,000 MG in 0.9 % Sodium Chloride 20 ML IVP SCH (07:46)
[2021-12-10] MEDS: Cyanocobalamin (B-12) 1,000 MCG TABLET PO SCH (07:46)
[2021-12-11] MEDS: levETIRAcetam 250 MG TABLET PO SCH ×2 (05:41→17:13)
[2021-12-11] MEDS: *HR* HYDROcodone/Acet 5/325 mg TABLET PO PRN (05:41)
[2021-12-11] MEDS: Cyanocobalamin (B-12) 1,000 MCG TABLET PO SCH (08:17)
[2021-12-11] MEDS: Metoprolol XL (24 HR) Succ 25 MG TAB.ER.24H PO SCH (08:17)
[2021-12-11] MEDS: levoFLOXacin 750 MG TABLET PO SCH (08:17)
[2021-12-11] MEDS: Magnesium Oxide 400 MG TABLET PO SCH (08:17)
[2021-12-11] MEDS: Carbidopa/Levodopa 25/100 TABLET PO SCH ×3 (08:18→21:16)
[2021-12-11] MEDS: Aspirin Enteric Coated 81 MG Tablet PO SCH (08:18)
[2021-12-11] MEDS: Cholecalciferol (D-3) 1,000 UNIT (25MCG) TABLET PO SCH (08:18)
[2021-12-11] MEDS: Apixaban 5 MG TABLET PO SCH ×2 (08:18→21:16)
[2021-12-11] MEDS: Isosorbide MONOnitrate (24 HR) 30 MG TAB.ER.24H PO SCH (08:18)
[2021-12-12] MEDS: *HR* HYDROcodone/Acet 5/325 mg TABLET PO PRN (04:16)
[2021-12-12] MEDS: levETIRAcetam 250 MG TABLET PO SCH ×2 (05:32→17:43)
[2021-12-12] MEDS: Cholecalciferol (D-3) 1,000 UNIT (25MCG) TABLET PO SCH (08:29)
[2021-12-12] MEDS: Isosorbide MONOnitrate (24 HR) 30 MG TAB.ER.24H PO SCH (08:29)
[2021-12-12] MEDS: Magnesium Oxide 400 MG TABLET PO SCH (08:29)
[2021-12-12] MEDS: Aspirin Enteric Coated 81 MG Tablet PO SCH (08:29)
[2021-12-12] MEDS: levoFLOXacin 750 MG TABLET PO SCH (08:30)
[2021-12-12] MEDS: Apixaban 5 MG TABLET PO SCH ×2 (08:30→19:59)
[2021-12-12] MEDS: Cyanocobalamin (B-12) 1,000 MCG TABLET PO SCH (08:30)
[2021-12-12] MEDS: Carbidopa/Levodopa 25/100 TABLET PO SCH ×3 (08:30→20:00)
[2021-12-12] MEDS: Metoprolol XL (24 HR) Succ 25 MG TAB.ER.24H PO SCH (08:30)
[2021-12-13] MEDS: levETIRAcetam 250 MG TABLET PO SCH ×2 (07:47→18:19)
[2021-12-13] MEDS: Aspirin Enteric Coated 81 MG Tablet PO SCH (08:44)
[2021-12-13] MEDS: Magnesium Oxide 400 MG TABLET PO SCH (08:44)
[2021-12-13] MEDS: levoFLOXacin 750 MG TABLET PO SCH (08:44)
[2021-12-13] MEDS: Cyanocobalamin (B-12) 1,000 MCG TABLET PO SCH (08:44)
[2021-12-13] MEDS: Apixaban 5 MG TABLET PO SCH ×2 (08:44→21:02)
[2021-12-13] MEDS: Isosorbide MONOnitrate (24 HR) 30 MG TAB.ER.24H PO SCH (08:45)
[2021-12-13] MEDS: Metoprolol XL (24 HR) Succ 25 MG TAB.ER.24H PO SCH (08:45)
[2021-12-13] MEDS: Carbidopa/Levodopa 25/100 TABLET PO SCH ×3 (08:45→21:02)
[2021-12-13] MEDS: Cholecalciferol (D-3) 1,000 UNIT (25MCG) TABLET PO SCH (08:46)
[2021-12-14] MEDS: levETIRAcetam 250 MG TABLET PO SCH ×4 (05:33→16:17)
[2021-12-14] MEDS: Acetaminophen 325 MG TABLET PO PRN ×2 (05:33→07:18)
[2021-12-14 05:44] LABS: Basophils % 0.4 %; Eosinophils % 0.4 %; Hematocrit 35.7 % (37.5-50.1); Hemoglobin 11.3 g/dL (12.9-16.9); Immature Granulocytes % 1.5 % (0-4); Lymphocytes # 1.2 K/mcL (0.6-4.6); Lymphocytes % 10.5 %; Mean Corpuscular HGB Conc 31.7 g/dL (31.6-35.5); Mean Corpuscular Hemoglobin 26.1 pg (28.0-33.3); Mean Corpuscular Volume 82.4 fL (83.0-100.0); Mean Platelet Volume 10.5 fL (9.4-12.4); Monocytes % 8.4 %; Neutrophils # 8.9 K/mcL (1.6-8.9); Platelet Count 245 K/mcL (140-400); Red Blood Count 4.33 M/mcL (4.19-5.50); Red Cell Distribution Width 14.6 % (11.5-14.5); Segmented Neutrophils % 78.8 %; White Blood Count 11.3 K/mcL (4.3-11.1)
[2021-12-14 06:34] LABS: BUN/Creatinine Ratio 16 (6-26); Blood Urea Nitrogen 17 mg/dL (8-23); Calcium 8.6 mg/dL (8.6-10.3); Carbon Dioxide 26 mEq/L (23-29); Chloride 100 mEq/L (98-107); Glucose 83 mg/dL (70-105); Magnesium 1.7 mg/dL (1.6-2.6); Osmolality,Calculated 281 (280-300); Sodium 135 mEq/L (136-145); eGFR For African Americans > 60 (> 60); eGFR For Non-African Americans > 60 (> 60)
[2021-12-14] MEDS: Cyanocobalamin (B-12) 1,000 MCG TABLET PO SCH (07:46)
[2021-12-14] MEDS: levoFLOXacin 750 MG TABLET PO SCH (07:47)
[2021-12-14] MEDS: Metoprolol XL (24 HR) Succ 25 MG TAB.ER.24H PO SCH (07:47)
[2021-12-14] MEDS: Magnesium Oxide 400 MG TABLET PO SCH (07:47)
[2021-12-14] MEDS: Aspirin Enteric Coated 81 MG Tablet PO SCH (07:47)
[2021-12-14] MEDS: Carbidopa/Levodopa 25/100 TABLET PO SCH ×2 (07:47→15:13)
[2021-12-14] MEDS: Cholecalciferol (D-3) 1,000 UNIT (25MCG) TABLET PO SCH (07:47)
[2021-12-14] MEDS: Isosorbide MONOnitrate (24 HR) 30 MG TAB.ER.24H PO SCH (07:47)
[2021-12-14] MEDS: Apixaban 5 MG TABLET PO SCH (07:47)
[2021-12-14 12:11] VITALS: O2SAT 96
[2021-12-14 15:57] VITALS: BP 127/66; PULSE 81; TEMP 98.5
[2021-12-14 16:04] LABS: Influenza A PCR Negative (Negative); Influenza B PCR Negative (Negative); Resp. Syncytial Virus PCR Negative (Negative)
[2021-12-14 16:16] LABS: SARS-CoV-2 by PCR (In House) Negative (Negative)
== END 2021-12-14 19:04 | DRG 660 ==
LOC: 3ANU → SUATTDRO 17:54
PROVIDERS: ADMIT Internal Medicine; ATTEND Internal Medicine